=== PATIENT | female | born 1985 | race Caucasian/White ===

== ENCOUNTER 2023-04-09 08:43 | Outpatient (REF) | payer OTHER, SELFPAY ==
[2023-04-09 11:22] LABS: MANUAL DIFF FLAG NO
[2023-04-09 11:36] LABS: Basophils Percent Auto 0.5 % (0-2); Eosinophils Absolute Auto 0.1 X10*3/uL (0.0-0.4); Eosinophils Percent Auto 2.3 % (0-4); Hematocrit 39.7 % (37.0-47.0); Hemoglobin 12.5 g/dl (12.0-16.0); Imm Gran Abs Auto 0.07 X10*3/uL (0.00-0.03); Imm Gran Pct Auto 1.2 % (0.0-0.4); Lymphocytes Absolute Auto 2.1 X10*3/uL (1.2-4.9); Mean Corpuscular HGB Conc 31.5 g/dl (31.0-35.0); Mean Corpuscular Hemoglobin 28.4 pg (27.0-33.0); Mean Corpuscular Volume 90.2 fL (80.0-98.0); Mean Platelet Volume 10.9 fL (9.4-12.3); Monocytes Absolute Auto 0.4 X10*3/uL (0.1-1.2); Monocytes Percent Auto 6.5 % (2-11); Neutrophils Absolute Auto 3.3 x10*3/uL (2.0-8.3); Neutrophils Percent Auto 54.5 % (45-73); Platelet Count 277 X10*3/uL (160-400); Red Cell Distribution Width 14.3 % (11.0-16.0)
[2023-04-09 12:02] LABS: Alanine Aminotransferase 35 U/L (0-31); Albumin Level 3.8 g/dL (3.5-5.0); Alkaline Phosphatase 55 U/L (39-117); Anion Gap 10 (12-20); Aspartate Amino Transferase 25 U/L (5-31); Bilirubin Total 0.4 mg/dL (0.0-1.0); Blood Urea Nitrogen 12 mg/dL (9-16); Calcium 8.6 mg/dL (8.4-10.2); Carbon Dioxide 26 mmol/L (22-29); Chloride 108 mmol/L (96-108); Cholesterol 194 mg/dL; Estimated Glomerular Filt Rate > 60; Glucose Random 90 mg/dL (60-115); HDL Cholesterol 42 mg/dL; LDL Cholesterol Calculated 126 mg/dl; Potassium 4.1 mmol/L (3.3-5.1); Sodium 140 mmol/L (135-145); Total Protein 6.5 g/dL (6.5-8.0); Triglycerides 130 mg/dL
[2023-04-09 12:25] LABS: TSH reflex Free T4 1.03 uIU/mL (0.32-4.0); Vitamin D 25-OH Total 16.3 ng/mL (>30)
== END 2023-04-09 08:44 | disposition home or self-care (01) ==
LOC: HO.HMGCLDS 08:43
PROVIDERS: PCP Nurse Practitioner Family; Visit Provider Nurse Practitioner Family
DX: Z13.0 Encounter for screening for diseases of the blood and blood-forming organs and certain disorders involving the immune mechanism (principal); Z13.220 Encounter for screening for lipoid disorders; Z13.29 Encounter for screening for other suspected endocrine disorder; Z13.21 Encounter for screening for nutritional disorder; I10 Essential (primary) hypertension
CPT/HCPCS: 36415; 80053; 80061; 82306; 84443; 85025

== ENCOUNTER 2024-07-01 13:56 | Outpatient (AMB) | payer OTHER, SELFPAY ==
--- NOTE | 2024-07-01 13:56 | MHC.PC.OV ---
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 Allergies No Known Allergies Allergy (Verified 07/01/24 14:36) Medication List - Last Reconciled 07/01/24 by Sesar Noble MD ibuprofen 800 mg PO TID PRN lisinopril 5 mg PO DAILY norgestimate-ethinyl estradiol 0.18/0.215/0.25 mg-35 mcg (28) (Tri-Estarylla) 1 tab PO DAILY Tobacco use date assessed: 07/01/24 Dental Screening Dental Screen Date: 07/01/24 Did you have a dental visit in the last 12 months?: No Did you have a dental problem in the last 6 months where you did not have access to dental care?: No HPI PE/re-establish care from Angela HPI Details 38-year-old female presents to the office to discuss her medical conditions. I will be assuming her care as her primary care provider has left the practice. Patient is reporting, that she has noticed a lump in the right lower side of the abdomen. She noticed the swelling 1 month ago. Patient had a severe bout of respiratory infection, with heavy coughing and noticed the swelling after. No pain or fever. No weight loss. No nausea or vomiting. Patient has irregular and heavy menstrual cycles. [facility] Medical History (Updated 05/13/23 @ 10:16 by JUDITH Covington) Contact dermatitis Hypertension Surgical History Hx of appendectomy Hx of cholecystectomy Previous section Family History Mother Breast cancer Hypertension Sister Type 2 diabetes mellitus Father Myocardial infarction Brother Myocardial infarction, Onset Age: 40 Social History (Updated 03/20/23 @ 09:15 by JUDITH Covington) Household Members: Family Housing: Apartment Alcohol intake: current Alcohol intake frequency: holidays/special occasions only Patient Tobacco Use Status: Former Tobacco user Tobacco use type: Cigarette Cigarettes Per Day: 2 e-Cigarette/Vaping Use: Never Used Substance Use Type: Marijuana service: No Current occupational status: employed Cognitive needs: No Hearing needs: No Vision needs: No Female Reproductive History Menstrual Age of Menarche: 15 Questionnaire PHQ-9 Over the last 2 weeks, how often have you been bothered by any of the following problems? 1. Little interest or pleasure in doing things: more than half the days 2. Feeling down, depressed, or hopeless: more than half the days 3. Trouble falling or staying asleep, or sleeping too much: not at all 4. Feeling tired or having little energy: not at all 5. Poor appetite or overeating: not at all 6. Feeling bad about yourself - or that you are a failure or have let yourself or your family down: not at all 7. Trouble concentrating on things, such as reading the newspaper or watching television: not at all 8. Moving or speaking so slowly that other people could have noticed. Or the opposite - being so fidgety or restless that you have been moving around a lot more than usual: not at all 9. Thoughts that you would be better off or of hurting yourself in some way: not at all Total score: 4 Depression Screening Interpretation: Negative Depression Screening Done: Yes 31185 - PHQ-9 Billing: Yes Source: Developed by Drs. Murphy Hall, Yolanda Dickinson, Duy Carlton and colleagues, with an educational aaliyah from [employer]. Thrive Questionnaire Date Thrive assessed: 07/01/24 I am a: Patient What is your living situation today?: I have a steady place to live Within the past 12 months, did the food you bought not last and you didn't have the money to get more?: Never true Within the past 12 months, did you worry whether your food would run out before you got money to buy more?: Never true Do you have trouble paying for medicines?: No Do you have trouble getting transportation to medical appointments?: No Do you have trouble paying your heating and electricity bill?: No Do you have trouble taking care of your child, family member or friend?: No Do you have trouble with day-to-day activities such as bathing, preparing meals, shopping, managing finances, etc.?: No Are you currently unemployed and looking for a job?: No Are you interested in more education?: No Please select the resources that you would like help with: None Currently or been in a relationship where the following occur: No concerns reported THRIVE Score: 0 AUDIT C Alcohol Use Questionnaire (AUDIT-C) 1. How often do you have a drink containing alcohol?: Never 3. How often do you have six or more drinks on one occasion?: Never Total Score: 0 LEVI-7 AMB Questionnaire LEVI-7 Date LEVI - 7 assessed: 07/01/24 Feeling nervous, anxious, or on edge: 0 = Not at all Not being able to stop or control worryin = More than half the days Worrying too much about different things: 0 = Not at all Trouble relaxin = Not at all Being so restless that it is hard to sit still: 0 = Not at all Becoming easily annoyed or irritable: 0 = Not at all Feeling afraid as if something awful might happen: 0 = Not at all Total LEVI-7 score (0-4 normal; 5-9 mild; 10-14 moderate; 15-21 severe): 2 Source: Developed by Drs. Murphy Hall, Yolanda Dickinson, Duy Carlton and colleagues, with an educational aaliyah from [employer]. LEVI-7 Assessment Billing LEVI-7 Assessment Tool: LEVI-7 Assessment 18065 Physical exam (Primary Care) Vital Signs: Last Vital Signs Pulse 58 07/01/24 13:57 BP 138/64 07/01/24 13:57 Pulse Ox 99 07/01/24 13:57 Oxygen Delivery Method Room Air 07/01/24 13:57 Care Plan Goal for BP management: Blood pressure is well controlled. Continue medications at same dosage. BMI result Body Mass Index 46.8 BMI Assessment/Plan discussion: High (1 lb per week weight loss suggested.) BMI High, discussed plan: lifestyle, weight reduction and dietary Tobacco/Smoking Status: Tobacco use Status Tobacco use date assessed 07/01/24 07/01/24 13:58 Patient Tobacco Use Status Former Tobacco user 07/01/24 13:58 Tobacco use type Cigarette 07/01/24 13:58 e-Cigarette/Vaping Use Never Used 07/01/24 13:58 PHQ-9: PHQ-9 Score PHQ-9: Total score 4 07/01/24 14:05 Depression Screening Interpretation: Negative Thrive Assessment: Date of Thrive Assessment Date Thrive assessed 07/01/24 07/01/24 13:59 Currently or been in a relationship where the following occur: No concerns reported Const General: cooperative and healthy appearing Nutritional Appearance: well nourished Orientation/consciousness: patient oriented x3 Limitations: no limitations HENMT Head: Yes normal to inspection Eyes General: appearance normal, both eyes and all related structures Neck Neck: Yes normal visual inspection Chest Chest palpation & inspection: normal palpation of entire chest wall Resp Effort & Inspection: normal respiratory effort GI Other: Abdomen: Small lump palpable in the right lower quadrant. Cough impulse is present. Neuro General: patient oriented x3 Assessment and Plan Assessment & Plan (1) Lump in the abdomen: Code(s): R19.00 - Intra-abdominal and pelvic swelling, mass and lump, unspecified site Plan: Most likely is reproducible hernia. An abdominal ultrasound and a pelvic ultrasound has been requested. Fibroid uterus has to be ruled out. Will call with the results of the ultrasound after they are done. (2) Hypertension: Code(s): I10 - Essential (primary) hypertension Plan: Blood pressure is in range. Continue medications at same dosage. Blood work has been ordered. Will call with the results. Orders: Orders US pelvic and transvaginal Today R19.00 - Intra-abdominal and pelvic swelling, mass and lump, unspecified site Complete Blood Count no Diff Today I10 - Essential (primary) hypertension UA and rflx microscopic Today I10 - Essential (primary) hypertension US abdomen complete Today R19.00 - Intra-abdominal and pelvic swelling, mass and lump, unspecified site, R74.8 - Abnormal levels of other serum enzymes Basic Metabolic Panel Today I10 - Essential (primary) hypertension Lipid Panel Today I10 - Essential (primary) hypertension Liver Panel Today I10 - Essential (primary) hypertension Thyroid Stimulating Hormone Today I10 - Essential (primary) hypertension Coding Level of Care Code Est Pt Level 4 (67684) Complex EM visit Add On G2211 Diagnoses Lump in the abdomen R19.00 Hypertension I10 Additional Codes LEVI-7 Assessment Billing - LEVI-7 Assessment Tool: LEVI-7 Assessment 12325 ([id number])
[2024-07-01 13:57] VITALS: BP 138/64; PULSE 58; O2SAT 99; BMI 46.8
== END 2024-07-01 14:26 | disposition home or self-care (01) ==
PROVIDERS: PCP Nurse Practitioner Family; Visit Provider Internal Medicine
DX: R19.00 Intra-abdominal and pelvic swelling, mass and lump, unspecified site (principal); I10 Essential (primary) hypertension
CPT/HCPCS: 99214; G2211

== ENCOUNTER 2024-07-14 08:15 | Outpatient (REF) | payer OTHER, SELFPAY ==
[2024-07-14 10:38] LABS: Hematocrit 38.7 % (37.0-47.0); Hemoglobin 12.5 g/dl (12.0-16.0); Mean Corpuscular HGB Conc 32.3 g/dl (31.0-35.0); Mean Corpuscular Hemoglobin 29.2 pg (27.0-33.0); Mean Corpuscular Volume 90.4 fL (80.0-98.0); Mean Platelet Volume 10.7 fL (9.4-12.3); Platelet Count 256 X10*3/uL (160-400); Red Blood Count 4.28 X10*6/uL (4.20-5.50); White Blood Count 5.4 X10*3/uL (4.8-10.8)
[2024-07-14 10:47] LABS: Appearance Urine Turbid; Color Urine Yellow; Glucose Urine UA Negative (Negative); Leukocyte Esterase Urine Negative (Negative); Nitrite Urine Negative (Negative); PH 5.5 (5.0-9.0); Urine Blood Negative (Negative); Urine Ketones Negative (Negative); Urine Protein Negative (Neg-Trace)
[2024-07-14 10:59] LABS: Alanine Aminotransferase 15 U/L (0-31); Albumin Level 3.7 g/dL (3.5-5.0); Alkaline Phosphatase 45 U/L (39-117); Anion Gap 11 (12-20); Aspartate Amino Transferase 14 U/L (5-31); Bilirubin Direct < 0.2 mg/dL (0.0-0.5); Bilirubin Total 0.2 mg/dL (0.0-1.0); Blood Urea Nitrogen 12 mg/dL (9-16); Calcium 8.6 mg/dL (8.4-10.2); Carbon Dioxide 21 mmol/L (22-29); Chloride 109 mmol/L (96-108); Cholesterol 162 mg/dL (<200); Estimated Glomerular Filt Rate > 60; Glucose Random 108 mg/dL (60-115); HDL Cholesterol 51 mg/dL (>40); LDL Cholesterol Calculated 95 mg/dL (<100); Potassium 4.3 mmol/L (3.3-5.1); Sodium 137 mmol/L (135-145); Total Protein 6.7 g/dL (6.5-8.0); Triglycerides 83 mg/dL (<150)
[2024-07-14 11:06] LABS: Thyroid Stimulating Hormone 0.92 uIU/mL (0.32-4.0)
== END 2024-07-14 08:16 | disposition home or self-care (01) ==
LOC: HO.HMGCLDS 08:15
PROVIDERS: PCP Internal Medicine; Visit Provider Internal Medicine
DX: I10 Essential (primary) hypertension (principal)
CPT/HCPCS: 36415; 80048; 80061; 80076; 81003; 84443; 85027

== ENCOUNTER 2024-07-27 09:54 | Outpatient (REF) | payer OTHER, SELFPAY ==
--- NOTE | ~2024-07-27 | US_ITS ---
EXAMINATION: US ABDOMEN COMPLETE CLINICAL INFORMATION: Abnormal levels of other serum enzymes. COMPARISON: None available. TECHNIQUE: Real-time imaging of the abdominal viscera. FINDINGS: PANCREAS: Normal. ABDOMINAL AORTA: The proximal, mid, and distal segments are normal in caliber. INFERIOR VENA CAVA: Visualized portions are normal. LIVER: The liver is normal in size. The liver contour is normal. Increased hepatic echogenicity suggesting hepatic steatosis. No focal hepatic lesion. There is no intrahepatic biliary duct dilatation seen. GALLBLADDER: Surgically absent. COMMON BILE DUCT: Normal in caliber measuring 0.37 cm in diameter. RIGHT KIDNEY: Normal. No hydronephrosis. No renal calculi or focal parenchymal lesions. The kidney measures 11.2 cm in maximum dimension. LEFT KIDNEY: Multiple left renal calculi are noted the largest measuring up to 5 mm in the lower pole. No hydronephrosis or focal parenchymal lesions. The kidney measures 12.0 cm in maximum dimension. SPLEEN: Enlarged. The spleen measures 13.9 cm in maximum dimension. FREE FLUID: None. ADDITIONAL FINDINGS: Within the right lower quadrant subcutaneous tissue in the area indicated by the patient is a complex mostly hypoechoic focus nonvascular with irregular margins measuring 1.6 x 0.9 x 1.1 cm, nonspecific. US/US abdomen complete IMPRESSION: 1. Increased hepatic echogenicity suggesting hepatic steatosis. 2. Status post cholecystectomy. 3. Multiple left-sided renal calculi the largest measuring up to 5 mm in the lower pole without hydronephrosis. 4. Within the right lower quadrant subcutaneous tissue in the area indicated by the patient is a complex mostly hypoechoic focus nonvascular with irregular margins measuring 1.6 x 0.9 x 1.1 cm, nonspecific. Electronically signed by: Nicolette Rojo MD 07/31/2024 10:31 AM EDT
--- NOTE | ~2024-07-27 | US_ITS ---
EXAMINATION: US PELVIS CLINICAL INFORMATION: Pelvic swelling, irregular menses, question fibroids, last menstrual period 07/17/2024, right lower quadrant pain. COMPARISON: None available. TECHNIQUE: Ultrasound of the pelvis is performed using both transabdominal and transvaginal transducers along with Doppler. Transvaginal imaging is performed due to inadequate visualization transabdominally. FINDINGS: The uterus is anteverted and measures 10.3 x 5.7 x 5.6 cm. Nabothian cysts. Endometrial thickness is 7 mm. Left ovary measures 3.2 x 2.9 x 2.7 cm, volume 13.2 mL. No significant free fluid. Right ovary measures 2.4 x 3.8 x 2.8 cm, volume 13.5 mL. Exophytic right ovarian cyst measures 1.0 cm and appears simple. US/US pelvic and transvaginal IMPRESSION: Right ovarian 1.0 cm simple cyst is likely physiologic; however, correlation with clinical exam recommended to determine further management including possible follow-up imaging for this patient with right lower quadrant pain, pelvic swelling and irregular menses. Electronically signed by: Simona Quiroz MD 08/04/2024 10:30 AM EDT
== END 2024-07-27 09:55 | disposition home or self-care (01) ==
LOC: HO.HMGCX 09:54
PROVIDERS: PCP Internal Medicine; Visit Provider Internal Medicine
DX: R19.00 Intra-abdominal and pelvic swelling, mass and lump, unspecified site (principal); R74.8 Abnormal levels of other serum enzymes
CPT/HCPCS: 76700; 76830; 76856

== ENCOUNTER 2025-01-20 11:08 | Outpatient (AMB) | payer OTHER, SELFPAY ==
--- NOTE | 2025-01-20 11:37 | A.OFFPC_ITS ---
Vital Signs 01/20/25 11:39 Height 5 ft 2 in Weight 256 lb 8 oz BMI 46.9 BP 140/82 H Blood Pressure Location Lt brachial Position Sitting Pulse 58 Pulse Source Pulse Oximeter Temp 97.3 F Temp Source Temporal Artery Scan Pulse Oximetry (%) 98 Oxygen Delivery Method Room Air Intake Visit Reasons: 6 month f/u Intake Note: Patient is here to follow up on pain in right leg Lubricating Specialist Required: No Diesel Stationary Engineer: Not Required per policy Accompanied by: Self / Same As Patient Allergies No Known Allergies Allergy (Verified 01/20/25 12:12) Medication List - Last Reconciled 01/20/25 by Yaneli Gutierrez PA-C ibuprofen 800 mg PO TID PRN lisinopril 20 mg PO DAILY norgestimate-ethinyl estradiol 0.18/0.215/0.25 mg-35 mcg (28) (Tri-Estarylla) 1 tab PO DAILY Tobacco use date assessed: 01/20/25 Dental Screening Dental Screen Date: 01/20/25 Did you have a dental visit in the last 12 months?: No Did you have a dental problem in the last 6 months where you did not have access to dental care?: No Was dental information given to patient?: No [facility] Medical History (Updated 01/20/25 @ 12:15 by Yaneli Gutierrez PA-C) Follow-up exam, 3-6 months since previous exam Morbid obesity with BMI of 45.0-49.9, adult Lower abdominal pain Contact dermatitis Hypertension Surgical History Previous section Hx of cholecystectomy Hx of appendectomy Family History Mother Breast cancer Hypertension Sister Type 2 diabetes mellitus Father Myocardial infarction Brother Myocardial infarction, Onset Age: 40 Social History Household Members: Family Housing: Apartment Alcohol intake: current Alcohol intake frequency: holidays/special occasions only Patient Tobacco Use Status: Former Tobacco user Tobacco use type: Cigarette Cigarettes Per Day: 2 e-Cigarette/Vaping Use: Never Used Second Hand Smoke Exposure: Yes Substance Use Type: Marijuana service: No Current occupational status: employed Cognitive needs: No Hearing needs: No Vision needs: Yes (Glasses) Female Reproductive History Menstrual Age of Menarche: 15 Questionnaire PHQ-9 Over the last 2 weeks, how often have you been bothered by any of the following problems? 1. Little interest or pleasure in doing things: not at all 2. Feeling down, depressed, or hopeless: not at all 3. Trouble falling or staying asleep, or sleeping too much: not at all 4. Feeling tired or having little energy: not at all 5. Poor appetite or overeating: not at all 6. Feeling bad about yourself - or that you are a failure or have let yourself or your family down: not at all 7. Trouble concentrating on things, such as reading the newspaper or watching television: not at all 8. Moving or speaking so slowly that other people could have noticed. Or the opposite - being so fidgety or restless that you have been moving around a lot more than usual: not at all 9. Thoughts that you would be better off or of hurting yourself in some way: not at all Total score: 0 Depression Screening Interpretation: Negative Depression Screening Done: Yes 58450 - PHQ-9 Billing: Yes Source: Developed by Drs. Murphy Hall, Yolanda Dickinson, Duy Carlton and colleagues, with an educational aaliyah from [employer]. Thrive Questionnaire Date Thrive assessed: 01/20/25 I am a: Patient What is your living situation today?: I have a steady place to live Within the past 12 months, did the food you bought not last and you didn't have the money to get more?: Never true Within the past 12 months, did you worry whether your food would run out before you got money to buy more?: Never true Do you have trouble paying for medicines?: No Do you have trouble getting transportation to medical appointments?: No Do you have trouble paying your heating and electricity bill?: No Do you have trouble taking care of your child, family member or friend?: No Do you have trouble with day-to-day activities such as bathing, preparing meals, shopping, managing finances, etc.?: No Are you currently unemployed and looking for a job?: No Are you interested in more education?: No Please select the resources that you would like help with: None Currently or been in a relationship where the following occur: No concerns reported THRIVE Score: 0 AUDIT C Alcohol Use Questionnaire (AUDIT-C) 2. How many drinks containing alcohol do you have on a typical day when you are drinking?: 1 or 2 3. How often do you have six or more drinks on one occasion?: Never Total Score: 0 Score Reviewed/Action Taken: Yes LEVI-7 AMB Questionnaire LEVI-7 Date LEVI - 7 assessed: 01/20/25 Feeling nervous, anxious, or on edge: 0 = Not at all Not being able to stop or control worryin = Not at all Worrying too much about different things: 0 = Not at all Trouble relaxin = Not at all Being so restless that it is hard to sit still: 0 = Not at all Becoming easily annoyed or irritable: 0 = Not at all Feeling afraid as if something awful might happen: 0 = Not at all Total LEVI-7 score (0-4 normal; 5-9 mild; 10-14 moderate; 15-21 severe): 0 Source: Developed by Drs. Murphy Hall, Yolanda Dickinson, Duy Carlton and colleagues, with an educational aaliyah from [employer]. LEVI-7 Assessment Billing LEVI-7 Assessment Tool: LEVI-7 Assessment 41112 Physical exam (Primary Care) Vital Signs: Last Vital Signs Temp 97.3 F 01/20/25 11:39 Pulse 58 01/20/25 11:39 BP 140/82 H 01/20/25 11:39 Pulse Ox 98 01/20/25 11:39 Oxygen Delivery Method Room Air 01/20/25 11:39 Care Plan Goal for BP management: 130/80 will increase the patient's lisinopril by 10 mg to 20 mg daily. Patient will check her blood pressure daily for the next 2 weeks and return in 2 weeks for blood pressure check. BMI result Body Mass Index 46.9 BMI Assessment/Plan discussion: High BMI High, discussed plan: lifestyle, weight reduction, dietary, physical activity and alcohol moderation Tobacco/Smoking Status: Tobacco use Status Tobacco use date assessed 01/20/25 01/20/25 11:43 Patient Tobacco Use Status Former Tobacco user 01/20/25 11:43 Tobacco use type Cigarette 01/20/25 11:43 e-Cigarette/Vaping Use Never Used 01/20/25 11:43 PHQ-9: PHQ-9 Score PHQ-9: Total score 0 01/20/25 11:43 Depression Screening Interpretation: Negative Thrive Assessment: Date of Thrive Assessment Date Thrive assessed 01/20/25 01/20/25 11:43 Currently or been in a relationship where the following occur: No concerns reported Coding Level of Care Code Est Pt Level 4 (18474) Complex EM visit Add On G2211 Diagnoses Lower abdominal pain R10.30 Hypertension I10 Morbid obesity with BMI of 45.0-49.9, adult E66.01; Z68.42 Follow-up exam, 3-6 months since previous exam Z09 Additional Codes PHQ-9 - 12810 - PHQ-9 Billing: Yes ([id number]) LEVI-7 Assessment Billing - LEVI-7 Assessment Tool: LEVI-7 Assessment 66419 ([id number]) Assessment & Plan Assessment & Plan (1) Lower abdominal pain: Code(s): R10.30 - Lower abdominal pain, unspecified Category: Medical Plan: Lower abdominal pain over the past month. Patient does not have an appendix or gallbladder. Was seen by business intelligence etl developer and they do not feel like it is ovary or uterus related. Will order outpatient labs, CT scan abdomen pelvis with IV contrast. Will continue to monitor. (2) Hypertension: Code(s): I10 - Essential (primary) hypertension Category: Medical Plan: Blood pressure 140/82. We would like her blood pressure to be under 130/80. Will increase her lisinopril from 10 mg to 20 mg daily. Patient will return in 2 weeks with blood pressure diary for blood pressure check. (3) Morbid obesity with BMI of 45.0-49.9, adult: Code(s): E66.01 - Morbid (severe) obesity due to excess calories; Z68.42 - Body mass index [BMI] 45.0-49.9, adult Category: Medical Plan: Patient will improve her diet and exercise. Condition is chronic and stable continue to monitor. (4) Follow-up exam, 3-6 months since previous exam: Code(s): Z09 - Encounter for follow-up examination after completed treatment for conditions other than malignant neoplasm Category: Medical Plan: see below Plan Plan - Increase lisinopril dosage to further manage hypertension. The patient is instructed to monitor blood pressure at home daily for two weeks. - A CT scan of the abdomen and pelvis with contrast is ordered to further investigate abdominal pain. - Encouraged to undertake blood work before the CT scan and report any emergent abnormalities. - Consideration for possible inguinal hernia in the differential diagnosis given abdominal pain presentation. - Ensure follow-up till better management is achieved and re-evaluate pain symptoms related to the right leg and abdomen. Orders: Orders Comprehensive [place]. Panel Fast Today Z00.00 - Encounter for general adult medical examination without abnormal findings Lipid Panel Today Z00.00 - Encounter for general adult medical examination without abnormal findings Liver Panel Today Z00.00 - Encounter for general adult medical examination without abnormal findings Magnesium Today Z00.00 - Encounter for general adult medical examination without abnormal findings Complete Blood Count Auto Diff Today Z00.00 - Encounter for general adult medical examination without abnormal findings C Reactive Protein Today Z00.00 - Encounter for general adult medical examination without abnormal findings Hemoglobin A1c Today Z00.00 - Encounter for general adult medical examination without abnormal findings TSH reflex Free T4 Today Z00.00 - Encounter for general adult medical examination without abnormal findings Vitamin B1 Today Z00.00 - Encounter for general adult medical examination without abnormal findings Vitamin B12 and Folate Today Z00.00 - Encounter for general adult medical examination without abnormal findings Vitamin D 25-OH Total Today Z00.00 - Encounter for general adult medical examination without abnormal findings CT abdomen pelvis w IV con Today R10.30 - Lower abdominal pain, unspecified HCG Quantitative Today R10.30 - Lower abdominal pain, unspecified UA CC w/rflx Micro + Cult Today R10.30 - Lower abdominal pain, unspecified Medications: Changed From lisinopril 10 mg PO DAILY To lisinopril 10 mg PO DAILY 90 tabs 1RF Patient Instructions: Patient Instructions - Increase lisinopril to current dosage to two tablets daily. - Monitor blood pressure daily for two weeks and log readings. - Obtain blood work before the CT scan. - Attend CT abdomen and pelvis with contrast as scheduled. - Report any dizziness or adverse reactions promptly. - Return for follow-up in two weeks or sooner if symptoms worsen. - Continue regular activities and be mindful of any developments in symptoms. - Purchase and use a home blood pressure cuff for daily measurements. Scribe Plan - Not visible on output: History of Present Illness The patient is a 39-year-old female presenting for a six-month follow-up to discuss her chronic medical condition patient has a history of essential hypertension, which has been treated with lisinopril. Her blood pressure today is noted at 140/82 mmHg. The patient acknowledges irregular home monitoring of blood pressure. She is also on estradiol for control and ibuprofen as needed. Her hypertension control has been marginal, with past readings occasionally exceeding preferred values recommended for optimal control. Additionally, the patient reports persistent pain localized to her right leg, which originally prompted a medical visit. She describes it starting in the upper leg and associated aching sensations in the arms when sitting upright. The pain reportedly has no known trigger and persists despite prior evaluations. The patient also experienced abdominal discomfort characterized by a pressure feeling predominantly in the lower abdomen and right suprapubic area. There is a reported history of kidney stones, which remain unresolved according to the patient. There were concerns about possible hernia based on prior discussions. She has undergone surgical removal of both the appendix and gallbladder. Social History - The patient is employed and reports no issues related to her functional status at work. - She lives with her and two children, aged three and eight. - She reports no difficulty with daily activities such as driving, and managing household tasks. - The patient's family planning is complete, and her partner has undergone sterilization. Review of Systems - Musculoskeletal: Reports persistent leg pain. - Gastrointestinal: Reports abdominal pressure. - Genitourinary: Denies any significant genitourinary symptoms except for history of menstrual irregularities. Physical Exam Appearance: Alert. Oriented X3. No acute distress. Head: Normal external exam. Normocephalic. Atraumatic. Eyes: Pupils are equal, round, and reactive to light. Extraocular movements intact. Conjunctiva and sclera normal. Eyelids normal. Ears: External auditory canal normal. Tympanic membranes normal. Throat: Pharynx normal. Uvula midline. Moist mucous membranes. Neck: Normal inspection. Neck supple. Full range of motion. No adenopathy. Thyroid Normal. No meningeal signs. No neck mass noted. Cardiovascular: Normal heart rate and rhythm. Heart sound normal. No murmurs no blanco. Pulses normal throughout. Respiratory: No respiratory distress. Painless inspiration. Breath sounds normal. No wheezes/rales/rhonchi noted. Chest nontender. No accessory muscle usage noted or decreased air movement noted. Abdomen: Soft and mild tenderness to the suprapubic/right lower abdomen. There is no rebound tenderness noted. Bowel sounds normal in all 4 quadrants. No distention noted. No organomegaly noted. No visible injury noted. Back: No costovertebral angle tenderness. Full range of motion noted. Skin: Skin warm and dry. Normal skin color. Normal skin turgor. No rashes/lesion s/lacerations noted. Extremities: No lower extremity edema. Extremities exhibit normal range of motion. Right leg pain reported. Extremities nontender. Neuro: Oriented X 3. No motor deficit. No sensory deficit. Reflexes normal. Results - Labs: CBC, CMP, Lipid Panel, Thyroid Function, Vitamin B1, B12, D to be done. - Tests and Diagnostics: None completed today. A follow-up with a CT abdomen and pelvis scheduled. Plan - Increase lisinopril dosage to further manage hypertension. The patient is instructed to monitor blood pressure at home daily for two weeks. - A CT scan of the abdomen and pelvis with contrast is ordered to further investigate abdominal pain. - Encouraged to undertake blood work before the CT scan and report any emergent abnormalities. - Consideration for possible inguinal hernia in the differential diagnosis given abdominal pain presentation. - Ensure follow-up till better management is achieved and re-evaluate pain symptoms related to the right leg and abdomen. Patient was informed and verbally consented to the use of an ambient scribe for clinic note documentation during this visit. Discussion Notes During today's encounter, we discussed increasing lisinopril to better manage her blood pressure, which consistently trends above the desired range. The patient agreed to begin twice daily dosing from her existing medication supply and to refill the medication. We reviewed the importance of regularly monitoring her blood pressure at home. Regarding her abdominal pain, I recommended a CT scan with contrast, as the pain's characteristics were not typical of kidney stone pain. We also discussed the possibility of an inguinal hernia as a differential, warranting a CT evaluation. I explained the need for updated blood work to check her kidney function prior to the imaging study. The patient expressed understanding of, and consented to, all proposed management plans, and agreed to follow up in two weeks to reassess her hypertension and review the CT results. Patient Instructions - Increase lisinopril to current dosage to two tablets daily. - Monitor blood pressure daily for two weeks and log readings. - Obtain blood work before the CT scan. - Attend CT abdomen and pelvis with contrast as scheduled. - Report any dizziness or adverse reactions promptly. - Return for follow-up in two weeks or sooner if symptoms worsen. - Continue regular activities and be mindful of any developments in symptoms. - Purchase and use a home blood pressure cuff for daily measurements.
[2025-01-20 11:39] VITALS: BP 140/82; PULSE 58; TEMP 36.3; O2SAT 98; BMI 46.9
--- OUTSIDE RECORDS SUMMARY | 2025-01-20 12:29 | XMS_ITS | Clinical Summary ---
Author Organization [facility] Address [address] [place] [address] Phone Care Team Providers Care Product Evangelist Name Role Phone Sheela Palacio MD Primary Care Provider [phone] Allergies No known active allergies Medications lisinopriL (PRINIVIL,ZESTRI L) 5 mg tablet Take 1 tablet (5 mg total) by mouth 1 (one) time each day. Active norgestimate-eth inyl estradioL (Tri-Estarylla) 0.18/0.215/0.25 mg-35 mcg (28) per tablet Take 1 tablet by mouth 1 (one) time each day. 02/22/2013 Active Active Problems No known active problems Encounters Date Type Department Care Team Description 11/02/2024 2:53 PM EST Anesthesia Event [facility] OR [address] [place] [phone] Cristo De La Torre MD Walsh, Michael, DO 11/02/2024 2:15 PM EST - 11/02/2024 3:30 PM EST Surgery [facility] OR [address] [place] [phone] Denny Soni MD FRACTIONAL D&C, HYSTEROSCOPY, ?MYOSURE ENDOMETRIAL POLYP REMOVAL [45580 (CPT??)] 11/02/2024 12:53 PM EST - 11/02/2024 5:20 PM EST Hospital Encounter [facility] OR [address] [place] [phone] Denny Soni MD Abnormal uterine and vaginal bleeding, unspecified; Polyp of corpus uteri Discharge Disposition: Home or Self Care from Last 3 Months Surgical History Surgery Date Site/Laterality Comments APPENDECTOMY Right CHOLECYSTECTOMY SECTION x 2 Medical History Medical History Date Comments Hypertension Chronic kidney disease kidney [facility] Family History Medical History Relation Name Comments Heart attack Father Hypertension Father Hypertension Mother Relation Name Status Comments Father Mother Social History Tobacco Use Types Packs/Day Years Used Date Smoking Tobacco: Former Cigarettes Q uit: 10/31/2012 Passive Smoke Exposure: Past Smokeless Tobacco: Never Tobacco Cessation:Counseling Given: Not Answered Alcohol Use Standard Drinks/Week Comments Yes 0 (1 standard drink = 0.6 oz pur e alcohol) rare Comments Unknown Sex and Gender Information Value Date Recorded Sex Assigned at Female 10/24/2024 8:08 PM EST Legal Sex Female 6:51 AM EST Gender Identity Female 10/24/2024 8:08 PM EST Sexual Orientation Straight 11/02/2024 12 :51 PM EST Obstetrics History Last Filed Vital Signs Vital Sign Reading Time Taken Comments Blood Pressure 133/60 11/02/2024 4:43 PM EST Pulse 62 11/02/2024 4:43 PM EST Temperature 36.8 ??C (98.2 ??F) 11/02/2024 1:13 PM ES T Respiratory Rate 14 11/02/2024 4:30 PM EST Oxygen Saturation 98% 11/02/2024 4:43 PM EST Inhaled Oxygen Concentration - - Weight 110 kg (243 lb) 10/25/2024 12:00 PM EST Height 157.5 cm (5' 2 ) 10/25/2024 12:00 PM EST Body Mass Index 44.45 10/25/2024 12:00 PM EST Plan of Treatment Health Maintenance Due Date Last Done Comments Hepatitis B Vaccines (1 of 3 - 19+ 3-dose series) 2005 Cervical Cancer Screening: P ap Smear 2007 DTaP,Tdap,and Td Vaccines (2 - Td or Tdap) 04/09/2022 04/09/2012 COVID-19 Vaccine (3 - Modern a risk series) 04/18/2022 03/21/2022, 02/21/2022 Cholesterol Screening (Lipid Panel) 11/03/2022 Depression Screening 11/03/2022 HIV Screening 11/03/2022 Hepatitis C Screening 11/03/2022 Social Influencers of Health Screening 11/03/2022 Influenza Vaccine (#1) 2024 Hypertension/CHF/CAD Annual BMP Blood Test 10/07/2024 HIB Vaccines Aged Out No longer eligi ble based on patient's age to complete this topic HPV Vaccines Aged Out No longer eligi ble based on patient's age to complete this topic Hepatitis A Vaccines Aged Out No long er eligible based on patient's age to complete this topic IPV Vaccines Aged Out No longer eligi ble based on patient's age to complete this topic MMR Vaccines Aged Out No longer eligi ble based on patient's age to complete this topic Meningococcal ACWY Vaccine Aged Out N o longer eligible based on patient's age to complete this topic Meningococcal B Vacine Aged Out No lo nger eligible based on patient's age to complete this topic Pneumococcal Vaccine: Pediatrics (0 to 5 Years) and At-Risk Patients (6 to 64 Years) Aged Out No longer eligible b ased on patient's age to complete this topic RSV Immunization Patients Under 20 months Aged Out No longer eligible b ased on patient's age to complete this topic Varicella Vaccines Aged Out No longer eligible based on patient's age to complete this topic Procedures Procedure Name Priority Date/Time Associated Diagnosis Comments TISSUE EXAM Routine 11/02/2024 3:16 PM EST Abnormal uterine and vaginal bleeding, unspecified Polyp of corpus uteri TH AN ENDOTRACHEAL(NO CHARGE) Routine 11/02/2024 3:11 PM EST NE HYSTEROSCOPY W/BIOPSY ENDOMETRIUM AND/OR POLYPECTOMY W/O AND/OR W/D&C 11/02/2024 2:51 PM EST Abnormal uterine and vaginal bleeding, unspecified Case Notes MYOSURE Special Needs MYOSURE CBC WITH AUTO DIFFERENTIAL Routine 10/27/2024 11:55 AM EST Post-menopausal bleeding CBC AND DIFFERENTIAL Routine 10/27/2024 11:55 AM EST Post-menopausal bleeding TYPE AND SCREEN Routine 10/27/2024 11:55 AM EST Post-menopausal bleeding from Last 3 Months Results * Tissue exam (11/02/2024 3:16 PM EST) Final Diagnosis A. Endocervical curettings: Benign endocervical mucosa with mild chronic endocervicitis Benign lower uterine segment tissue B. Endometrial curettings: Secretory endometrium, polypoid - No unequivocal endometrial polyp identified - No endometrial hyperplasia or neoplasm identified Benign endocervix 11/04/2024 11:29 AM EST [facility] Gross Description A. Cervix, ecc: Labeled ECC . Received in formalin, on Telfa, is a 2.2 x 1.5 x 0.3 cm aggregate of blood-streaks mucoid material, which is wrapped in paper and submitted in toto in one cassette, multiple pieces, x2. B. Endometrium, emc: Labeled EMC . Received in formalin, on sheets of telfa, is a 3.2 x 2.5 x 0.6 cm aggregate of soft, fowler-red tissue fragments and blood-streaked mucoid material paper and submitted in toto in two cassette, multiple pieces each, x 2. TS 11/04/2024 11:29 AM EST [facility] Disclaimer Unless otherwise specified, all tissue is 10% NB formalin fixed and paraffin embedded. 11/04/2024 11:29 AM [facility] Tissue Cervix uteri structure / Unknown 11/02/2024 3:16 PM EST 11/03/2024 6:05 AM EST Tissue specimen (specimen) Endometrial structure / Unknown 11/02/2024 3:18 PM EST 11/03/2024 6:05 AM EST us Denny Soni MD LAB PATHOLOGY ORDERABLES Final Result [facility] [address] [place] [address], * TH AN ENDOTRACHEAL(NO CHARGE) (11/02/2024 3:11 PM EST) Yumiko Montenegro CRNA - 11/02/2024 3:11 PM EST Yumiko Arroyo CRNA ? 11/02/2024 ??3:13 PM General Information and Staff Patient location during procedure: OR Anesthesiologist: Cristo De La Torre MD Resident/WATERSHED MANAGER: Yumiko Arroyo CRNA Performed: resident/WATERSHED MANAGER/CAA Performed by: Yumiko Arroyo CRNA Authorized by: Cristo De La Torre MD ?? Intubation Airway not difficult Urgency: elective Final Airway Details Successful airway: ETT Cuffed: yes Successful intubation technique: video laryngoscopy Facilitating devices/methods: intubating stylet Endotracheal tube insertion site: oral Blade: Farnaz Blade size: #3 ETT size (mm): 7.0 Cormack-Lehane Classification: grade IIa - partial view of glottis Placement verified by: chest auscultation and capnometry Measured from: lips ETT to lips (cm): 21 Number of attempts at approach: 1 Number of other approaches attempted: 0Final airway type: endotracheal airway Indications and Patient Condition Indications for airway management: anesthesia Sedation level: Yes Preoxygenated: yes Soft Tissue Damage: No Dentition Unchanged: Yes Patient position: sniffing MILS maintained throughout Mask difficulty assessment: 2 - vent by mask + OA or adjuvant +/- NMBA Start Time: 11/02/2024 3:05 PMStop Time: 11/02/2024 3:05 PM us Cristo De La Torre MD ANESTHESIA ORDERABLES Final Re sult * CBC auto differential (10/27/2024 11:55 AM EST) WBC 7.1 4.8 - 10.8 K/mcL LAB HEMETOLOGY METHOD 10/27/2024 12:37 PM [facility] RBC 4.30 3.80 - 4.80 M/mcL LAB HEMETOLOGY METHOD 10/27/2024 12:37 PM [facility] Hemoglobin 12.6 11.5 - 16.0 g/dL LAB HEMETOLOGY METHOD 10/27/2024 12:37 PM [facility] Hematocrit 38.9 35.0 - 47.0 % LAB HEMETOLOGY METHOD 10/27/2024 12:37 PM [facility] MCV 91.1 79.0 - 98.0 FL LAB HEMETOLOGY METHOD 10/27/2024 12:37 PM [facility] MCH 29.5 27.0 - 32.0 pcg LAB HEMETOLOGY METHOD 10/27/2024 12:37 PM [facility] MCHC 32.4 32.0 - 37.0 g/dL LAB HEMETOLOGY METHOD 10/27/2024 12:37 PM [facility] RDW 13.3 11.0 - 15.0 % LAB HEMETOLOGY METHOD 10/27/2024 12:37 PM [facility] Platelets 284 130 - 400 K/mcL LAB HEMETOLOGY METHOD 10/27/2024 12:37 PM [facility] MPV 10.4 7.0 - 11.0 FL LAB HEMETOLOGY METHOD 10/27/2024 12:37 PM [facility] NRBC 0.0 <1.0 % LAB HEMETOLOGY METHOD 10/27/2024 12:37 PM [facility] NRBC Absolute 0.00 <0.10 K/mcL LAB HEMETOLOGY METHOD 10/27/2024 12:37 PM [facility] Neutrophils Relative 55.1 % LAB HEMETOLOGY METHOD 10/27/2024 12:37 PM [facility] Lymphocytes Relative 30.5 % LAB HEMETOLOGY METHOD 10/27/2024 12:37 PM [facility] Monocytes Relative 7.8 % LAB HEMETOLOGY METHOD 10/27/2024 12:37 PM [facility] Eosinophils Relative 5.9 % LAB HEMETOLOGY METHOD 10/27/2024 12:37 PM [facility] Basophils Relative 0.4 % LAB HEMETOLOGY METHOD 10/27/2024 12:37 PM EST [facility] Immature Granulocytes Relative 0.3 % LAB HEMETOLOGY METHOD 10/27/2024 12:37 PM [facility] Neutrophils Absolute 3.89 1.50 - 7.00 K/[facility] LAB HEMETOLOGY METHOD 10/27/2024 12:37 PM [facility] Lymphocytes Absolute 2.15 1.00 - 5.00 K/[facility] LAB HEMETOLOGY METHOD 10/27/2024 12:37 PM [facility] Monocytes Absolute 0.55 0.20 - 1.00 K/[facility] LAB HEMETOLOGY METHOD 10/27/2024 12:37 PM [facility] Eosinophils Absolute 0.42 0.00 - 0.50 K/[facility] LAB HEMETOLOGY METHOD 10/27/2024 12:37 PM [facility] Basophils Absolute 0.03 0.00 - 0.20 K/mcL LAB HEMETOLOGY METHOD 10/27/2024 12:37 PM [facility] Immature Granulocytes Absolute 0.02 0.00 - 0.03 K/[facility] LAB HEMETOLOGY METHOD 10/27/2024 12:37 PM [facility] Blood Venous blood specimen / Unknown Venipuncture / Unknown 10/27/2024 11:55 AM EST 10/27/2024 12:27 PM EST us Denny Soni MD LAB BLOOD ORDERABLES Final Res ult [facility] [address] [place] [address], * Type and screen (10/27/2024 11:55 AM EST) ABO Group A 10/27/2024 1:33 PM EST [facility] Rh Type Positive 10/27/2024 1:33 PM EST [facility] Antibody Screen Negative 10/27/2024 1:33 PM EST [facility] Blood Venous blood specimen / Unknown Venipuncture / Unknown 10/27/2024 11:55 AM EST 10/27/2024 12:27 PM EST us Denny Soni MD LAB BLOOD BANK TEST ORDERABLES Final Result [facility] [address] [place] [address], from Last 3 Months Insurance [facility] [email or web address] PLAN Advance Directives * Full Code - Default (Latest Code Status on File) Date Activated Date Inactivated Comments 11/02/2024 12:59 PM 11/02/2024 7:25 PM This is ord er is used when code status has not been discussed with the patient, or code status is otherwise unknown/unconfirmed To update the patient's code status, place a code status order. Do not modify or discontinue any currently active code status orders. Care Teams Product Evangelist Relationship Specialty Start Date End Date Sheela Palacio MD [address], [place] PCP - General Internal Medicine 06/17/17
== END 2025-01-20 12:19 | disposition home or self-care (01) ==
PROVIDERS: PCP Internal Medicine; Visit Provider Physician Assistant Medical
DX: R10.30 Lower abdominal pain, unspecified (principal); I10 Essential (primary) hypertension; E66.01 Morbid (severe) obesity due to excess calories; Z68.42 Body mass index [BMI] 45.0-49.9, adult; Z09 Encounter for follow-up examination after completed treatment for conditions other than malignant neoplasm

== ENCOUNTER → 2025-01-20 11:08 | Outpatient (BNVA) | payer OTHER, SELFPAY | PROVIDERS: PCP Internal Medicine; Visit Provider Physician Assistant Medical | DX: Z09 Encounter for follow-up examination after completed treatment for conditions other than malignant neoplasm (principal); R10.30 Lower abdominal pain, unspecified; I10 Essential (primary) hypertension; E66.01 Morbid (severe) obesity due to excess calories; Z68.42 Body mass index [BMI] 45.0-49.9, adult; Z71.3 Dietary counseling and surveillance | CPT/HCPCS: 96127; 99212 ==

== ENCOUNTER 2025-01-24 09:11 | Outpatient (REF) | payer OTHER, SELFPAY ==
--- OUTSIDE RECORDS SUMMARY | 2025-01-24 09:47 | XMS_ITS | Clinical Summary ---
Author Organization [facility] Address [address] [place] [address] Phone Care Team Providers Care Stage Producer Name Role Phone Sesar Noble MD Primary Care Provider [phone] Allergies No known active allergies Medications lisinopriL (PRINIVIL,ZESTRI L) 5 mg tablet Take 1 tablet (5 mg total) by mouth 1 (one) time each day. Active norgestimate-eth inyl estradioL (Tri-Estarylla) 0.18/0.215/0.25 mg-35 mcg (28) per tablet Take 1 tablet by mouth 1 (one) time each day. 02/22/2013 Active naproxen (NAPROSYN) 500 mg tablet Take 1 tablet (500 mg total) by mouth 2 (two) times a day with meals for 10 days. 20 tablet 01/22/2025 5 Active Active Problems No known active problems Encounters Date Type Department Care Team Description 01/22/2025 7:05 PM EST - 01/22/2025 10:[address] [facility] Emergency [address] [place] [address] Generalized abdominal pain (Primary Dx); Pelvic pain Discharge Disposition: Home or Self Care 11/02/2024 2:53 PM EST Anesthesia Event [facility] [place] [address] [place] [address] Cristo De La Torre MD Walsh, Michael, 11/02/2024 2:15 PM EST - 11/02/2024 3:[address] [facility] Main OR [address] [place] [id number] Denny Soni MD FRACTIONAL D&C, HYSTEROSCOPY, ?MYOSURE ENDOMETRIAL POLYP REMOVAL [54129 (CPT??)] 11/02/2024 12:53 PM EST - 11/02/2024 5:20 PM EST Hospital Encounter [facility] [place] [address] [place] [phone] Denny Soni MD Abnormal uterine and vaginal [...] = 0.6 oz pur e alcohol) rare Housing Instability Answer Date Recorde d Are you worried that in the next 2 months you may not have stable housing? Unable to respond 01/22/2025 Food Access & Nutrition Answer Date Rec orded Do you have access to a vari ety of food including fruits and vegetables? Unable to respond 01/22/2025 Health Literacy Answer Date Recorded How often do you need to hav e someone help you when you read instructions, pamphlets, or other written material from your doctor or pharmacy? Unable to respond 01/22/2025 Caregiver: How often do you need to have someone help you when you read instructions, pamphlets, or other written material from your doctor or pharmacy? Not on file 025 Financial Risk Answer Date Recorded How hard is it for you to pa y for the very basics like food, housing, medical care, and air conditioning / heating? Unable to respond 01/22/2025 Transportation Answer Date Recorded Has the lack of transportati on kept you from meetings, work, or from getting things needed for daily living? Unable to respond 01/22/2025 Has the lack of transportati on kept you from medical appointments or from getting medications? Unable to respond 01/22/2025 Social Isolation Answer Date Recorded How often do you feel lonely or isolated from those around you? Unable to respond 01/22/2025 Food Risk Answer Date Recorded Within the past 12 months we worried whether our food would run out before we got money to buy more. Unable to respond 025 Within the past 12 months th e food we bought just didn't last and we didn't have money to get more. Unable to respond 01/02 Dependent Care Answer Date Recorded Do you need help finding or paying for care for your loved ones. For example, child care teacher or elderly care for an older adult? Unable to respond 01/22/2025 Education Answer Date Recorded Do you think completing more education or training, like finishing a GED, going to college, or learning a trade, would be helpful for you? Unable to respond 01/22/2025 Employment and Income Answer Date Recor ded During the last four weeks, have you been actively looking for work? Unable to respond 01/22/2025 Living Situation Answer Date Recorded What is your living situation? 0 01/22/2025 Comments Unknown Sex and Gender Information Value Date Recorded Sex Assigned at Female 10/24/2024 8:08 PM EST Legal Sex Female 6:51 AM EST Gender Identity Female 10/24/2024 8:08 PM EST Sexual Orientation Straight 11/02/2024 12 :51 PM EST Obstetrics History Last Filed Vital Signs Vital Sign Reading Time Taken Comments Blood Pressure 148/68 01/22/2025 10:08 PM EST Pulse 50 01/22/2025 10:08 PM EST Temperature 36.3 ??C (97.3 ??F) 01/22/2025 10:[address] Respiratory Rate 16 01/22/2025 10:08 PM EST Oxygen Saturation 98% 01/22/2025 10:08 PM EST Inhaled Oxygen Concentration - - Weight 117 kg (257 lb) 01/22/2025 1:32 PM EST Height 162.6 cm (5' 4 ) 01/22/2025 1:32 PM EST Body Mass Index 44.11 01/22/2025 1:32 PM EST Plan of Treatment Health Maintenance [...] HIV Screening 11/03/2022 Hepatitis C Screening 11/03/2022 Influenza Vaccine (#1) 2024 Hypertension/CHF/CAD Annual BMP Blood Test 01/22/2026 01/22/2025 Social Influencers of Health Screening 01/22/2026 01/22/2025 HIB Vaccines Aged Out No longer eligi [...] Procedure Name Priority Date/Time Associated Diagnosis Comments US PELVIS NON OB COMPLETE W TRANSVAGINAL STAT 01/22/2025 8:59 PM EST ECG 12-LEAD STAT 01/22/2025 4:52 PM EST URINALYSIS WITH REFLEX MICROSCOPIC STAT 01/22/2025 1:51 PM EST URINALYSIS WITH REFLEX MICROSCOPIC STAT 01/22/2025 1:51 PM EST CBC WITH AUTO DIFFERENTIAL STAT 01/22/2025 1:48 PM EST LIPASE STAT 01/22/2025 1:48 PM EST COMPREHENSIVE METABOLIC PANEL STAT 01/22/2025 1:48 PM EST CBC AND DIFFERENTIAL STAT 01/22/2025 1:48 PM EST TISSUE EXAM Routine 11/02/2024 3:16 PM EST Abnormal uterine and vaginal bleeding, unspecified Polyp of corpus uteri TH AN ENDOTRACHEAL(NO CHARGE) Routine 11/02/2024 3:11 PM EST GA HYSTEROSCOPY W/BIOPSY ENDOMETRIUM AND/OR POLYPECTOMY W/O AND/OR W/D&C 11/02/2024 2:51 PM EST Abnormal uterine and vaginal bleeding, unspecified Case Notes MYOSURE Special Needs MYOSURE CBC WITH AUTO DIFFERENTIAL Routine 10/27/2024 11:55 AM EST Post-menopausal bleeding CBC AND DIFFERENTIAL Routine 10/27/2024 11:55 AM EST Post-menopausal bleeding TYPE AND SCREEN Routine 10/27/2024 11:55 AM EST Post-menopausal bleeding from Last 3 Months Results * US Pelvis Non OB Complete w Transvaginal (01/22/2025 8:59 PM EST) Anatomical Region Laterality Modality Body, Pelvis Ultrasound 01/22/2025 9:58 PM EST Impressions 01/22/2025 9:58 PM EST 1. Normal pelvic ultrasound with Doppler. No evidence of ovarian torsion. This document has been electronically signed by: Cristo Pride MD on 01/22/2025 21:58:27 Narrative 01/22/2025 9:58 PM EST INDICATION: pain US pelvis transabdominal and transvaginal with Doppler Comparison: None Findings: Transabdominal scanning performed for overall anatomy. Transvaginal scanning performed for additional detail. Anteverted uterus is 13.4 cm length. Normal myometrium. No endometrial lesion, 14 mm thickness. Right ovary 3.7 x 2.5 x 3.2 cm. Left ovary 3.9 x 2.6 x 2.5 cm. Normal color Doppler with arterial/venous spectral tracing of both ovaries. No free fluid. Procedure Note Cristo Pride MD - 01/22/2025 INDICATION: pain US pelvis transabdominal and transvaginal with Doppler Comparison: None Findings: Transabdominal scanning performed for overall anatomy. Transvaginal scanning performed for additional detail. Anteverted uterus is 13.4 cm length. Normal myometrium. No endometrial lesion, 14 mm thickness. Right ovary 3.7 x 2.5 x 3.2 cm. Left ovary 3.9 x 2.6 x 2.5 cm. Normal color Doppler with arterial/venous spectral tracing of both ovaries. No free fluid. IMPRESSION: 1. Normal pelvic ultrasound with Doppler. No evidence of ovariantorsion. This document has been electronically signed by: Cristo Pride MD on 01/22/2025 21:58:27 us Sheela ANDERSON IMG US PROCEDURES Final Re sult * ECG 12 lead (01/22/2025 4:52 PM EST) Ventricular Rate ECG 48 BPM GEMUSE Atrial Rate 48 BPM GEMUSE P-R Interval 164 ms GEMUSE QRS Duration 106 ms GEMUSE Q-T Interval 484 ms GEMUSE QTc 432 ms GEMUSE P Wave [place] 17 degrees GEMUSE R [place] 79 degrees GEMUSE T [place] 48 degrees GEMUSE ECG Interpretation Sinus bradycardia with marked sinus arrhythmia Otherwise normal ECG When compared with ECG of 31-AUG-2020 11:02, Premature atrial complexes are no longer Present Confirmed by AUGUSTIN PHAM ([id number]) on 01/23/2025 9:22:51 AM GEMUSE 01/22/2025 4:52 PM EST 01/23/2025 9:22 AM EST us Phan Moran MD ECG ORDERABLES Final Resul t GEMUSE * Urinalysis with reflex microscopic (01/22/2025 1:51 PM EST) Specific [place] Urine 1.011 1.003 - 1.030 LAB URINALYSIS - AUTOMATED METHOD 01/22/2025 2:02 PM [facility] pH, Urine 7.0 5.0 - 8.0 pH LAB URINALYSIS - AUTOMATED METHOD 01/22/2025 2:02 PM [facility] Leukocytes, Urine Negative Negative LAB URINALYSIS - AUTOMATED METHOD 01/22/2025 2:02 PM [facility] Nitrite, Urine Negative Negative LAB URINALYSIS - AUTOMATED METHOD 01/22/2025 2:02 PM [facility] Protein, Urine Negative <=Trace mg/dL LAB URINALYSIS - AUTOMATED METHOD 01/22/2025 2:02 PM [facility] Glucose, Urine Negative Negative mg/dL LAB URINALYSIS - AUTOMATED METHOD 01/22/2025 2:02 PM [facility] Ketones, Urine Negative Negative mg/dL LAB URINALYSIS - AUTOMATED METHOD 01/22/2025 2:02 PM [facility] Urobilinogen, Urine 0.2 0.2 - 1.0 mg/dL LAB URINALYSIS - AUTOMATED METHOD 01/22/2025 2:02 PM [facility] Bilirubin, Urine Negative Negative LAB URINALYSIS - AUTOMATED METHOD 01/22/2025 2:02 PM [facility] Blood, Urine Negative Negative LAB URINALYSIS - AUTOMATED METHOD 01/22/2025 2:02 PM [facility] Urine Urine specimen obtained by clean catch procedure / Unknown Non-blood Collection / Unknown 01/22/2025 1:51 PM EST 01/22/2025 1:58 PM EST us Phan Moran MD LAB URINE ORDERABLES Final Result [facility] [address] [place] [address], [place] [phone] * (ABNORMAL) CBC auto differential (01/22/2025 1:48 PM EST) Only the most recent of2 resultswithin the time period is included. WBC 7.2 4.8 - 10.8 K/mcL LAB HEMETOLOGY METHOD 01/22/2025 2:03 PM [facility] RBC 4.20 3.80 - 4.80 M/mcL LAB HEMETOLOGY METHOD 01/22/2025 2:03 PM [facility] Hemoglobin 12.1 11.5 - 16.0 g/dL LAB HEMETOLOGY METHOD 01/22/2025 2:03 PM [facility] Hematocrit 38.2 35.0 - 47.0 % LAB HEMETOLOGY METHOD 01/22/2025 2:03 PM [facility] MCV 91.4 79.0 - 98.0 FL LAB HEMETOLOGY METHOD 01/22/2025 2:03 PM [facility] MCH 28.9 27.0 - 32.0 pcg LAB HEMETOLOGY METHOD 01/22/2025 2:03 PM [facility] MCHC 31.7(L) 32.0 - 37.0 g/dL LAB HEMETOLOGY METHOD 01/22/2025 2:03 PM [facility] RDW 14.2 11.0 - 15.0 % LAB HEMETOLOGY METHOD 01/22/2025 2:03 PM [facility] Platelets 265 130 - 400 K/mcL LAB HEMETOLOGY METHOD 01/22/2025 2:03 PM [facility] MPV 9.9 7.0 - 11.0 FL LAB HEMETOLOGY METHOD 01/22/2025 2:03 PM [facility] NRBC 0.0 <1.0 % LAB HEMETOLOGY METHOD 01/22/2025 2:03 PM [facility] NRBC Absolute 0.00 <0.10 K/mcL LAB HEMETOLOGY METHOD 01/22/2025 2:03 PM [facility] Neutrophils Relative 64.0 % LAB HEMETOLOGY METHOD 01/22/2025 2:03 PM [facility] Lymphocytes Relative 22.5 % LAB HEMETOLOGY METHOD 01/22/2025 2:03 PM [facility] Monocytes Relative 8.1 % LAB HEMETOLOGY METHOD 01/22/2025 2:03 PM [facility] Eosinophils Relative 4.4 % LAB HEMETOLOGY METHOD 01/22/2025 2:03 PM [facility] Basophils Relative 0.6 % LAB HEMETOLOGY METHOD 01/22/2025 2:03 PM [facility] Immature Granulocytes Relative 0.4 % LAB HEMETOLOGY METHOD 01/22/2025 2:03 PM [facility] Neutrophils Absolute 4.63 1.50 - 7.00 K/mcL LAB HEMETOLOGY METHOD 01/22/2025 2:03 PM [facility] Lymphocytes Absolute 1.63 1.00 - 5.00 K/mcL LAB HEMETOLOGY METHOD 01/22/2025 2:03 PM [facility] Monocytes Absolute 0.59 0.20 - 1.00 K/mcL LAB HEMETOLOGY METHOD 01/22/2025 2:03 PM [facility] Eosinophils Absolute 0.32 0.00 - 0.50 K/mcL LAB HEMETOLOGY METHOD 01/22/2025 2:03 PM [facility] Basophils Absolute 0.04 0.00 - 0.20 K/mcL LAB HEMETOLOGY METHOD 01/22/2025 2:03 PM EST [facility] Immature Granulocytes Absolute 0.03 0.00 - 0.03 K/mcL LAB HEMETOLOGY METHOD 01/22/2025 2:03 PM EST [facility] Blood Venous blood specimen / Unknown Venipuncture / Unknown 01/22/2025 1:48 PM EST 01/22/2025 1:58 PM EST Phan Moran MD LAB BLOOD ORDERABLES Final Result Performing Organization Address City/[facility]/ZIP Co de Phone Number [facility] [address] [place] [address], [place] [phone] * Lipase (01/22/2025 1:48 PM EST) Lipase 33 13 - 75 unit/L LAB CHEMISTRY METHOD 01/22/2025 2:30 PM [facility] Blood Venous blood specimen / Unknown Venipuncture / Unknown 01/22/2025 1:48 PM EST 01/22/2025 1:58 PM EST Phan Moran MD LAB BLOOD ORDERABLES Final Result Performing Organization Address [facility]/ZIP Co de Phone Number [facility] [address] [place] [address], [place] [phone] * Comprehensive metabolic panel (01/22/2025 1:48 PM EST) Sodium 138 133 - 145 mmol/L LAB CHEMISTRY METHOD 01/22/2025 2:30 PM EST [facility] Potassium 4.1 3.5 - 5.5 mmol/L LAB CHEMISTRY METHOD 01/22/2025 2:30 PM [facility] Chloride 105 96 - 110 mmol/L LAB CHEMISTRY METHOD 01/22/2025 2:30 PM EST [facility] CO2 25 21 - 32 mmol/L LAB CHEMISTRY METHOD 01/22/2025 2:30 PM [facility] Anion Gap 8 3 - 11 LAB CHEMISTRY METHOD 01/22/2025 2:30 PM [facility] Glucose 92 70 - 100 mg/dL LAB CHEMISTRY METHOD 01/22/2025 2:30 PM [facility] BUN 11 5 - 25 mg/dL LAB CHEMISTRY METHOD 01/22/2025 2:30 PM [facility] Creatinine 0.54 0.50 - 1.10 mg/dL LAB CHEMISTRY METHOD 01/22/2025 2:30 PM [facility] eGFR 121 >=60 mL/min/1. 73m2 LAB CHEMISTRY METHOD 01/22/2025 2:30 PM [facility] Comment:Calculation based on the??Chronic Kidney Disease Epidemiology Collaboration (CKD-EPI) equation refit??without adjustment for race. BUN/Creatinine Ratio 20.4 LAB CHEMISTRY METHOD 01/22/2025 2:30 PM [facility] Calcium 8.9 8.5 - 10.5 mg/dL LAB CHEMISTRY METHOD 01/22/2025 2:30 PM [facility] AST (SGOT) 28 10 - 42 unit/L LAB CHEMISTRY METHOD 01/22/2025 2:30 PM [facility] ALT (SGPT) 43 10 - 60 unit/L LAB CHEMISTRY METHOD 01/22/2025 2:30 PM [facility] Alkaline Phosphatase 72 42 - 121 unit/L LAB CHEMISTRY METHOD 01/22/2025 2:30 PM [facility] Total Protein 6.9 6.0 - 8.0 g/dL LAB CHEMISTRY METHOD 01/22/2025 2:30 PM [facility] Albumin 3.6 3.2 - 5.0 g/dL LAB CHEMISTRY METHOD 01/22/2025 2:30 PM [facility] Total Bilirubin 0.5 0.0 - 1.4 mg/dL LAB CHEMISTRY METHOD 01/22/2025 2:30 PM EST [facility] Blood Venous blood specimen / Unknown Venipuncture / Unknown 01/22/2025 1:48 PM EST 01/22/2025 1:58 PM EST us Phan Moran MD LAB BLOOD ORDERABLES Final Result [facility] [address] [place] [address], [place] [phone] * Tissue exam (11/02/2024 3:16 PM EST) Final Diagnosis A. Endocervical curettings: Benign endocervical mucosa with mild chronic endocervicitis Benign lower uterine segment tissue B. Endometrial curettings: Secretory endometrium, polypoid - No unequivocal endometrial polyp identified - No endometrial hyperplasia or neoplasm identified Benign endocervix 11/04/2024 11:29 AM [facility] Gross Description A. Cervix, [...] each, x 2. TS 11/04/2024 11:29 AM [facility] Disclaimer Unless otherwise specified, all tissue is 10% NB formalin fixed and paraffin embedded. 11/04/2024 11:29 AM [facility] Tissue Cervix uteri structure / Unknown 11/02/2024 3:16 PM EST 11/03/2024 6:05 AM EST Tissue specimen (specimen) Endometrial structure / Unknown 11/02/2024 3:18 PM EST 11/03/2024 6:05 AM EST us Denny Soni MD LAB PATHOLOGY ORDERABLES Final Result [facility] [address] [place] [address], * TH AN ENDOTRACHEAL(NO CHARGE) (11/02/2024 3:11 PM EST) Yumiko Montenegro CRNA - 11/02/2024 3:11 PM EST Yumiko Arroyo CRNA ? 11/02/2024 ??3:13 PM General Information and Staff Patient location during procedure: OR Anesthesiologist: Cristo De La Torre MD Resident/TEST DESIGN ENGINEER: Yumiko Arroyo CRNA Performed: resident/TEST DESIGN ENGINEER/CAA Performed by: Yumiko Arroyo CRNA Authorized by: [...] 11/02/2024 3:05 PMStop Time: 11/02/2024 3:05 PM Cristo De La Torre MD ANESTHESIA ORDERABLES Final Re sult * Type and screen (10/27/2024 11:55 AM EST) ABO Group A 10/27/2024 1:33 PM EST [facility] Rh Type Positive 10/27/2024 1:33 PM EST [facility] Antibody Screen Negative 10/27/2024 1:33 PM EST [facility] Blood Venous blood specimen / Unknown Venipuncture / Unknown 10/27/2024 11:55 AM EST 10/27/2024 12:27 PM EST us Denny Soni MD LAB BLOOD BANK TEST ORDERABLES Final Result [facility] [address] [place] [address], from Last 3 Months Insurance [facility] [employer] [facility] Advance Directives * Full Code - Default [...] currently active code status orders. Care Teams Stage Producer Relationship Specialty Start Date End Date Sesar Noble MD [facility] [address] [facility] [address] PCP - General Internal Medicine 01/22/25
--- OUTSIDE RECORDS SUMMARY | 2025-01-24 09:48 | XMS_ITS | Encounter Summary ---
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 Name Role Phone Sesar Noble MD Primary Care Provider [phone] Reason for Visit * Reason Comments Abdominal Pain Dizziness SUDDEN ABD PAIN WHIL E AT WORK TODAY Encounter Details Date Type Department Care Team (Late st Contact Info) Description 01/22/2025 7:05 PM EST - 01/22/2025 10:34 PM EST Emergency [facility] Emergency [address] [place] [address] Generalized abdominal pain (Primary Dx); Pelvic pain Discharge Disposition: Home or Self Care Social History Tobacco Use Types Packs/Day Years Used Date Smoking Tobacco: Former Cigarettes Q uit: 10/31/2012 Passive Smoke Exposure: Past Smokeless Tobacco: Never Alcohol Use Standard Drinks/Week Comments Yes 0 [...] for your loved ones. 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 [...] Orientation Straight 11/02/2024 12 :51 PM EST documented as of this encounter Last Filed Vital Signs Vital Sign Reading [...] Mass Index 44.11 01/22/2025 1:32 PM EST documented in this encounter Discharge Instructions * Discharge Instructions* JUSTIN Martinez - 01/22/2025 10:18 PM EST I am discharging you home with Naprosyn that you may take twice daily as needed for your discomfort. As discussed, I would like you to follow-up with your [employer] [facility]ER for ongoing evaluation if your pain persists. Call on Friday to schedule this outpatient follow-up. Follow up with your primary provider. Call tomorrow for appointment. Return to Emergency Department if symptoms worsen, do not improve, or any other concern. Get well soon! Thank you for coming to the [facility] Emergency Department today. Our entire team works together to provide you with the best care possible. Examination and treatment you received in the emergency department has been rendered on an EMERGENCY basis only. It is not intended to be a substitute for or an effort to provide complete medical care. You should follow-up with your primary care provider. Please report to your physician any new or remaining problems, because it is impossible to recognize and treat all elements of injury or illness in a single emergency department visit. In the event that you're unable to obtain a followup appointment in a timely fashion, OR you are not getting any better, OR you are getting worse, OR you develop any symptoms of concern, please return here immediately for further evaluation. The emergency department is open 24 hours a day, 7 days aweek. Your discharge report is based on information that was available when you were in the emergency department. If you do not have a primary care provider, please contact one of the following to make arrangements to follow up. [facility] * Attachments The following attachments cannot be sent through Care Everywhere. * Pelvic Pain (Icelandic) documented in this encounter Medications at Time of Discharge lisinopriL (PRINIVIL,ZESTRIL ) 5 mg tablet Take 1 tablet (5 mg total) by mouth 1 (one) time each day. norgestimate-ethi nyl estradioL (Tri-Estarylla) 0.18/0.215/0.25 mg-35 mcg (28) per tablet Take 1 tablet by mouth 1 (one) time each day. 02/22/2013 naproxen (NAPROSYN) 500 mg tablet Take 1 tablet (500 mg total) by mouth 2 (two) times a day with meals for 10 days. 20 tablet 01/22/2025 02/01/2025 documented as of this encounter Ordered Prescriptions Prescription Sig Dispense Quantity Refills Last Filled Start Date End Date naproxen (NAPROSYN) 500 mg tablet Take 1 tablet (500 mg total) by mouth 2 (two) times a day with meals for 10 days. 20 tablet 01/22/2025 02/01/2025 documented in this encounter Discharge Disposition Disposition Code Departure Means Destination Comment s Home or Self Care documented in this encounter Progress Notes * Kateryna Davidson RN - 01/22/2025 1:30 PM EST While at work experienced sudden lower abdominal pain sharp in nature rx to groin,nausea, dizzinessand 'feeling uncoordinated'; denies gu/gi sx, lmp 01/14 * JUSTIN Martinez - 01/22/2025 1:17 PM EST Emergency Medicine Note Patient Name: Jose Hernandez Initial Evaluation: 01/22/2025 : 1985 Patient's PCP: Sesar Noble MD Emergency Physician: JUSTIN Martinez History of Present Illness Chief Complaint: Chief Complaint Patient presents with Abdominal Pain Dizziness SUDDEN ABD PAIN WHILE AT WORK TODAY This is a 39-year-old female with a past medical history of cholecystectomy, appendectomy and abnormal uterine bleeding for which she had a hysteroscope in October 2024 presenting for evaluation of a sharp pressure-like sensation that she experienced suddenly when at work at approximately 12 PM today. Patient has taken ibuprofen with minimal relief of her discomfort. Patient denies having any fevers, chills, dysuria, urinary frequency, vaginal discharge or dyspareunia. ROS: I have performed a ROS with the pertinent positives and negatives documented in the history ofpresent illness. Previous History Past Medical History: Diagnosis Date Chronic kidney disease kidney stones Hypertension Past Surgical History: Procedure Laterality Date APPENDECTOMY Right SECTION x 2 CHOLECYSTECTOMY Social History Tobacco Use Smoking status: Former Current packs/day: 0.00 Types: Cigarettes Quit date: 10/31/2012 Years since quittin.2 Passive exposure: Past Smokeless tobacco: Never Substance Use Topics Alcohol use: Yes Comment: rare Drug use: Yes Types: Marijuana/Cannabis Comment: vape 4 puffs / aday Family History Problem Relation Name Age of Onset Heart attack Father Hypertension Mother Hypertension Father has No Known Allergies. No current facility-administered medications on file prior to encounter. Current Outpatient Medications on File Prior to Encounter Medication Sig Dispense Refill lisinopriL (PRINIVIL,ZESTRIL) 5 mg tablet Take 1 tablet (5 mg total) by mouth 1 (one) time each day. norgestimate-ethinyl estradioL (Tri-Estarylla) 0.18/0.215/0.25 mg-35 mcg (28) per tablet Take 1 tablet by mouth 1 (one) time each day. Physical Exam ED Triage Vitals [01/22/25 1332] Temp Heart Rate Resp BP 36.6 ??C (97.9 ??F) (!) 41 16 (!) 161/83 SpO2 Temp Source Heart Rate Source Patient Position 99 % Oral -- Sitting BP Location FiO2 (%) -- -- Physical Exam General: awake, calm, cooperative, obese, no apparent distress, vital signs reviewed, patient is afebrile Skin: warm, dry, no diaphoresis Cardiovascular: regular rate and rhythm, no murmur Gastrointestinal: soft, suprapubic tenderness R > L, abdomen is nondistended, normal active bowel sounds Neurological: alert and oriented X3, no focal deficits Psychiatric: stable mood and affect, fluid speech, good eye contact and appropriate demeanor Results Labs Reviewed CBC WITH AUTO DIFFERENTIAL - Abnormal Result Value WBC 7.2 RBC 4.20 Hemoglobin 12.1 Hematocrit 38.2 MCV 91.4 MCH 28.9 MCHC 31.7 (*) RDW 14.2 Platelets 265 MPV 9.9 NRBC 0.0 NRBC Absolute 0.00 Neutrophils Relative 64.0 Lymphocytes Relative 22.5 Monocytes Relative 8.1 Eosinophils Relative 4.4 Basophils Relative 0.6 Immature Granulocytes Relative 0.4 Neutrophils Absolute 4.63 Lymphocytes Absolute 1.63 Monocytes Absolute 0.59 Eosinophils Absolute 0.32 Basophils Absolute 0.04 Immature Granulocytes Absolute 0.03 COMPREHENSIVE METABOLIC PANEL - Normal Sodium 138 Potassium 4.1 Chloride 105 CO2 25 Anion Gap 8 Glucose 92 BUN 11 Creatinine 0.54 eGFR 121 BUN/Creatinine Ratio 20.4 Calcium 8.9 AST (SGOT) 28 ALT (SGPT) 43 Alkaline Phosphatase 72 Total Protein 6.9 Albumin 3.6 Total Bilirubin 0.5 LIPASE - Normal Lipase 33 URINALYSIS WITH REFLEX MICROSCOPIC - Normal Specific [place] Urine 1.011 pH, Urine 7.0 Leukocytes, Urine Negative Nitrite, Urine Negative Protein, Urine Negative Glucose, Urine Negative Ketones, Urine Negative Urobilinogen, Urine 0.2 Bilirubin, Urine Negative Blood, Urine Negative CBC AND DIFFERENTIAL Narrative: The following orders were created for panel order CBC and differential. Procedure Abnormality Status --------- ------ CBC auto differential[[id number]] Abnormal Final result Please view results for these tests on the individual orders. URINALYSIS WITH REFLEX MICROSCOPIC Narrative: The following orders were created for panel order Urinalysis with reflex microscopic. Procedure Abnormality Status --------- ------ Urinalysis with reflex ...[[id number]] Normal Final result Please view results for these tests on the individual orders. POC , URINE DIAGNOSTIC HCG, Ur POC POC hCG Int QC Pass? EXPIRATION DATE POC LOT NUMBER POC Abnormal Labs Reviewed CBC WITH AUTO DIFFERENTIAL - Abnormal; Notable for the following components: Result Value MCHC 31.7 (*) All other components within normal limits US Pelvis Non OB Complete w Transvaginal Final Result 1. Normal pelvic ultrasound with Doppler. No evidence of ovarian torsion. This document has been electronically signed by: Cristo Pride MD on 01/22/2025 21:58:27 I have discussed the incidental/abnormal imaging and/or lab abnormalities with the patient and haveinstructed them the need for further evaluation and workup with their primary care doctor. The laboratory results, imaging results and other diagnostic exam results were reviewed in the EMR. EKG Interpretation Critical Care Time None ? Differential Diagnosis Ovarian cyst Ovarian torsion Diverticulitis Acute urinary tract infection Medical Decision Making Medical Decision Making Patient is evaluated with her present. Patient will be given IV fluids and analgesia and pelvic ultrasound imaging will be obtained. Medications morphine injection 4 mg (4 mg intravenous Given 01/22/252015) ondansetron (PF) (ZOFRAN) injection 4 mg (4 mg intravenous Given 01/22/252016) sodium chloride 0.9 % bolus 1,000 mL (0 mL intravenous Stopped 01/22/252205) ED Course as of 01/22/252218 Sat Jan 22, 20252212 There are no findings noted on pelvic ultrasound imaging. Patient will be discharged home. [RO] ED Course User Index [RO] JUSTIN Martinez Clinical Impressions as of 01/22/252218 Generalized abdominal pain Pelvic pain Procedures Procedures Diagnosis 1. Generalized abdominal pain 2. Pelvic pain Disposition Discharge ED Prescriptions Medication Sig Dispense Start Date End Date Auth. Provider naproxen (NAPROSYN) 500 mg tablet Take 1 tablet (500 mg total) by mouth 2 (two) times a day with meals for 10 days. 20 tablet 01/22/2025 02/01/2025 JUSTIN Martinez Physician Attestation JUSTIN Martinez 01/22/252018 JUSTIN Martinez 01/22/252218 Cosigned by Alexy Ceron DO at 01/22/2025 10:59 PM EST documented in this encounter Plan of Treatment Pending Results Name Type Priority Associated Diagnoses Date /Time POC , urine manually resulted Point of Care Testing STAT 01/22/2025 2:15 PM EST Scheduled Orders Name Type Priority Associated Diagnoses Orde r Schedule POC , urine manually resulted Point of Care Testing STAT Once for 1 Occurrences starting 01/22/2025 until 01/22/2025 documented as of this encounter Procedures Procedure Name Priority Date/Time Associated Diagnosis Comments US PELVIS NON OB COMPLETE W TRANSVAGINAL STAT 01/22/2025 8:59 PM EST ECG 12-LEAD STAT 01/22/2025 4:52 PM EST URINALYSIS WITH REFLEX MICROSCOPIC STAT 01/22/2025 1:51 PM EST URINALYSIS WITH REFLEX MICROSCOPIC STAT 01/22/2025 1:51 PM EST CBC WITH AUTO DIFFERENTIAL STAT 01/22/2025 1:48 PM EST CBC AND DIFFERENTIAL STAT 01/22/2025 1:48 PM EST LIPASE STAT 01/22/2025 1:48 PM EST COMPREHENSIVE METABOLIC PANEL STAT 01/22/2025 1:48 PM EST documented in this encounter Results * US Pelvis Non OB Complete [...] GEMUSE QTc 432 ms GEMUSE P Wave Lester 17 degrees GEMUSE R Lester 79 degrees GEMUSE T Lester 48 degrees GEMUSE ECG Interpretation Sinus bradycardia [...] reflex microscopic (01/22/2025 1:51 PM EST) Specific [place] Urine 1.011 1.003 - 1.030 LAB URINALYSIS - AUTOMATED METHOD 01/22/2025 2:02 PM [facility] pH, Urine 7.0 5.0 - 8.0 pH LAB URINALYSIS - AUTOMATED METHOD 01/22/2025 2:02 PM [facility] Leukocytes, Urine Negative Negative LAB URINALYSIS - AUTOMATED METHOD 01/22/2025 2:02 PM [facility] Nitrite, Urine Negative Negative LAB URINALYSIS - AUTOMATED METHOD 01/22/2025 2:02 PM [facility] Protein, Urine Negative <=Trace mg/dL LAB URINALYSIS - AUTOMATED METHOD 01/22/2025 2:02 PM [facility] Glucose, Urine Negative Negative mg/dL LAB URINALYSIS - AUTOMATED METHOD 01/22/2025 2:02 PM [facility] Ketones, Urine Negative Negative mg/dL LAB URINALYSIS - AUTOMATED METHOD 01/22/2025 2:02 PM [facility] Urobilinogen, Urine 0.2 0.2 - 1.0 mg/dL LAB URINALYSIS - AUTOMATED METHOD 01/22/2025 2:02 PM [facility] Bilirubin, Urine Negative Negative LAB URINALYSIS - AUTOMATED METHOD 01/22/2025 2:02 PM [facility] Blood, Urine Negative Negative LAB URINALYSIS - AUTOMATED METHOD 01/22/2025 2:02 PM [facility] Urine Urine specimen obtained by clean catch procedure / Unknown Non-blood Collection / Unknown 01/22/2025 1:51 PM EST 01/22/2025 1:58 PM EST us Phan Moran MD LAB URINE ORDERABLES Final Result [facility] [address] [place] [address], [place] [phone] * (ABNORMAL) CBC auto differential (01/22/2025 1:48 PM EST) [facility] WBC 7.2 4.8 - 10.8 K/mcL LAB HEMETOLOGY METHOD 01/22/2025 2:03 PM [facility] RBC 4.20 3.80 - 4.80 M/mcL LAB HEMETOLOGY METHOD 01/22/2025 2:03 PM [facility] Hemoglobin 12.1 11.5 - 16.0 g/dL LAB HEMETOLOGY METHOD 01/22/2025 2:03 PM [facility] Hematocrit 38.2 35.0 - 47.0 % LAB HEMETOLOGY METHOD 01/22/2025 2:03 PM [facility] MCV 91.4 79.0 - 98.0 FL LAB HEMETOLOGY METHOD 01/22/2025 2:03 PM [facility] MCH 28.9 27.0 - 32.0 pcg LAB HEMETOLOGY METHOD 01/22/2025 2:03 PM [facility] MCHC 31.7(L) 32.0 - 37.0 g/dL LAB HEMETOLOGY METHOD 01/22/2025 2:03 PM [facility] RDW 14.2 11.0 - 15.0 % LAB HEMETOLOGY METHOD 01/22/2025 2:03 PM [facility] Platelets 265 130 - 400 K/mcL LAB HEMETOLOGY METHOD 01/22/2025 2:03 PM [facility] MPV 9.9 7.0 - 11.0 FL LAB HEMETOLOGY METHOD 01/22/2025 2:03 PM [facility] NRBC 0.0 <1.0 % LAB HEMETOLOGY METHOD 01/22/2025 2:03 PM [facility] NRBC Absolute 0.00 <0.10 K/mcL LAB HEMETOLOGY METHOD 01/22/2025 2:03 PM [facility] Neutrophils Relative 64.0 % LAB HEMETOLOGY METHOD 01/22/2025 2:03 PM [facility] Lymphocytes Relative 22.5 % LAB HEMETOLOGY METHOD 01/22/2025 2:03 PM [facility] Monocytes Relative 8.1 % LAB HEMETOLOGY METHOD 01/22/2025 2:03 PM [facility] Eosinophils Relative 4.4 % LAB HEMETOLOGY METHOD 01/22/2025 2:03 PM [facility] Basophils Relative 0.6 % LAB HEMETOLOGY METHOD 01/22/2025 2:03 PM [facility] Immature Granulocytes Relative 0.4 % LAB HEMETOLOGY METHOD 01/22/2025 2:03 PM [facility] Neutrophils Absolute 4.63 1.50 - 7.00 K/mcL LAB HEMETOLOGY METHOD 01/22/2025 2:03 PM [facility] Lymphocytes Absolute 1.63 1.00 - 5.00 K/mcL LAB HEMETOLOGY METHOD 01/22/2025 2:03 PM [facility] Monocytes Absolute 0.59 0.20 - 1.00 K/mcL LAB HEMETOLOGY METHOD 01/22/2025 2:03 PM [facility] Eosinophils Absolute 0.32 0.00 - 0.50 K/mcL LAB HEMETOLOGY METHOD 01/22/2025 2:03 PM [facility] Basophils Absolute 0.04 0.00 - 0.20 K/mcL LAB HEMETOLOGY METHOD 01/22/2025 2:03 PM [facility] Immature Granulocytes Absolute 0.03 0.00 - 0.03 K/mcL LAB HEMETOLOGY METHOD 01/22/2025 2:03 PM [facility] Blood Venous blood specimen / Unknown Venipuncture / Unknown 01/22/2025 1:48 PM EST 01/22/2025 1:58 PM EST Phan Moran MD LAB BLOOD ORDERABLES Final Result Performing Organization Address [facility]/ZIP Co de Phone Number [facility] [address] [place] [address], [place] [phone] * Lipase (01/22/2025 1:48 PM EST) [facility] Lipase 33 13 - 75 unit/L LAB CHEMISTRY METHOD 01/22/2025 2:30 PM EST [facility] Blood Venous blood specimen / Unknown Venipuncture / Unknown 01/22/2025 1:48 PM EST 01/22/2025 1:58 PM EST Phan Moran MD LAB BLOOD ORDERABLES Final Result Performing Organization Address [facility]/ZIP Co de Phone Number [facility] [address] [place] [address], [place] [phone] * Comprehensive metabolic panel (01/22/2025 1:48 PM EST) [facility] Sodium 138 133 - 145 mmol/L LAB CHEMISTRY METHOD 01/22/2025 2:30 PM [facility] Potassium 4.1 3.5 - 5.5 mmol/L LAB CHEMISTRY METHOD 01/22/2025 2:30 PM [facility] Chloride 105 96 - 110 mmol/L LAB CHEMISTRY METHOD 01/22/2025 2:30 PM [facility] CO2 25 21 - 32 mmol/L LAB CHEMISTRY METHOD 01/22/2025 2:30 PM [facility] Anion Gap 8 3 - 11 LAB CHEMISTRY METHOD 01/22/2025 2:30 PM [facility] Glucose 92 70 - 100 mg/dL LAB CHEMISTRY METHOD 01/22/2025 2:30 PM [facility] BUN 11 5 - 25 mg/dL LAB CHEMISTRY METHOD 01/22/2025 2:30 PM [facility] Creatinine 0.54 0.50 - 1.10 mg/dL LAB CHEMISTRY METHOD 01/22/2025 2:30 PM [facility] eGFR 121 >=60 mL/min/1. 73m2 LAB CHEMISTRY METHOD 01/22/2025 2:30 PM [facility] Comment:Calculation based on the??Chronic Kidney Disease Epidemiology Collaboration (CKD-EPI) equation refit??without adjustment for race. BUN/Creatinine Ratio 20.4 LAB CHEMISTRY METHOD 01/22/2025 2:30 PM [facility] Calcium 8.9 8.5 - 10.5 mg/dL LAB CHEMISTRY METHOD 01/22/2025 2:30 PM [facility] AST (SGOT) 28 10 - 42 unit/L LAB CHEMISTRY METHOD 01/22/2025 2:30 PM [facility] ALT (SGPT) 43 10 - 60 unit/L LAB CHEMISTRY METHOD 01/22/2025 2:30 PM [facility] Alkaline Phosphatase 72 42 - 121 unit/L LAB CHEMISTRY METHOD 01/22/2025 2:30 PM [facility] Total Protein 6.9 6.0 - 8.0 g/dL LAB CHEMISTRY METHOD 01/22/2025 2:30 PM [facility] Albumin 3.6 3.2 - 5.0 g/dL LAB CHEMISTRY METHOD 01/22/2025 2:30 PM [facility] Total Bilirubin 0.5 0.0 - 1.4 mg/dL LAB CHEMISTRY METHOD 01/22/2025 2:30 PM [facility] Blood Venous blood specimen / Unknown Venipuncture / Unknown 01/22/2025 1:48 PM EST 01/22/2025 1:58 PM EST us Phan Moran MD LAB BLOOD ORDERABLES Final Result [facility] [address] [place] [address], documented in this encounter Visit Diagnoses Diagnosis Generalized abdominal pain- Primary Abdominal pain, generalized Pelvic pain documented in this encounter Administered Medications Inactive Administered Medications - up to 3 most recent administrations Medication Order MAR Action Action Date Dose Rate Site morphine injection 4 mg 4 mg, intravenous, Once, On 01/22/25 at 2004, For 1 dose Given 01/22/2025 8:16 PM EST 4 mg ondansetron (PF) (ZOFRAN) injection 4 mg 4 mg, intravenous, Once, On 01/22/25 at 2004, For 1 dose Given 01/22/2025 8:17 PM EST 4 mg sodium chloride 0.9 % bolus 1,000 mL 1,000 mL, intravenous, at 4,000 mL/hr, Administer over 0.25 Hours, Once, On 01/22/25 at 2004, For 1 dose New Bag 01/22/2025 8:16 PM EST 1,000 mL 4000 mL/hr documented in this encounter Active and Recently Administered Medications Times are shown in EST. Scheduled Medication Order 01/20/2025 01/21/2025 01/22/2025 morphine injection 4 mg (COMPLETED) 4 mg, intravenous, Once, On 01/22/25 at 2004, For 1 dose 2015 (Given - Provid er: Emma Zuniga RN) ondansetron (PF) (ZOFRAN) injection 4 mg (COMPLETED) 4 mg, intravenous, Once, On 01/22/25 at 2004, For 1 dose 2016 (Given - Provid er: Emma Zuniga RN) sodium chloride 0.9 % bolus 1,000 mL (COMPLETED) 1,000 mL, intravenous, at 4,000 mL/hr, Administer over 0.25 Hours, Once, On 01/22/25 at 2004, For 1 dose 2015 (New Bag - Prov ider: Emma Zuniga, RN)2205 (Stopped - Provider: Emma Zuniga RN) documented in this encounter Care Teams Trucking Supervisor Relationship Specialty Start Date End Date Sesar Noble MD [address] [place] [address] PCP - General Internal Medicine 01/22/25 documented as of this encounter
[2025-01-24 10:22] LABS: Appearance Urine Clear; Color Urine Yellow; Glucose Urine UA Negative (Negative); Leukocyte Esterase Urine Negative (Negative); Nitrite Urine Negative (Negative); PH 5.5 (5.0-9.0); Urine Blood Negative (Negative); Urine Ketones Negative (Negative); Urine Protein Negative (Neg-Trace)
[2025-01-24 10:25] LABS: MANUAL DIFF FLAG NO
[2025-01-24 10:35] LABS: Basophils Percent Auto 0.5 % (0-2); Eosinophils Absolute Auto 0.4 X10*3/uL (0.0-0.4); Eosinophils Percent Auto 7.1 % (0-4); Hematocrit 38.4 % (37.0-47.0); Hemoglobin 12.6 g/dl (12.0-16.0); Imm Gran Abs Auto 0.02 X10*3/uL (0.00-0.03); Imm Gran Pct Auto 0.3 % (0.0-0.4); Lymphocytes Absolute Auto 1.7 X10*3/uL (1.2-4.9); Lymphocytes Percent Auto 28.8 % (20-40); Mean Corpuscular HGB Conc 32.8 g/dl (31.0-35.0); Mean Corpuscular Hemoglobin 29.4 pg (27.0-33.0); Mean Corpuscular Volume 89.7 fL (80.0-98.0); Mean Platelet Volume 10.2 fL (9.4-12.3); Monocytes Absolute Auto 0.4 X10*3/uL (0.1-1.2); Monocytes Percent Auto 7.3 % (2-11); Neutrophils Absolute Auto 3.3 x10*3/uL (2.0-8.3); Platelet Count 264 X10*3/uL (160-400); Red Blood Count 4.28 X10*6/uL (4.20-5.50); Red Cell Distribution Width 14.1 % (11.0-16.0); White Blood Count 5.9 X10*3/uL (4.8-10.8)
[2025-01-24 11:02] LABS: Estimated Average Glucose 103 mg/dL; Hemoglobin A1c % 5.2 % (<6.0)
[2025-01-24 11:08] LABS: Alanine Aminotransferase 31 U/L (0-31); Albumin Level 3.7 g/dL (3.5-5.0); Alkaline Phosphatase 58 U/L (39-117); Anion Gap 12 (12-20); Aspartate Amino Transferase 22 U/L (5-31); Bilirubin Direct 0.1 mg/dL (0.0-0.5); Bilirubin Total 0.3 mg/dL (0.0-1.0); Blood Urea Nitrogen 12 mg/dL (9-16); C Reactive Protein 0.26 mg/dL (< or = 0.50); Calcium 8.8 mg/dL (8.4-10.2); Carbon Dioxide 26 mmol/L (22-29); Chloride 107 mmol/L (96-108); Cholesterol 157 mg/dL (<200); Estimated Glomerular Filt Rate > 60; Glucose Fasting 105 mg/dL (60-99); HDL Cholesterol 49 mg/dL (>40); LDL Cholesterol Calculated 97 mg/dL (<100); Magnesium 2.1 mg/dL (1.6-2.6); Potassium 4.5 mmol/L (3.3-5.1); Sodium 140 mmol/L (135-145); Total Protein 6.8 g/dL (6.5-8.0); Triglycerides 58 mg/dL (<150)
[2025-01-24 11:40] LABS: HCG Quantitative < 2 mIU/mL; TSH reflex Free T4 1.07 uIU/mL (0.32-4.0); Vitamin D 25-OH Total 22.5 ng/mL (>30)
[2025-01-24 12:00] LABS: Folate 8.1 ng/mL (> or = 4.0); Vitamin B12 489 pg/mL (200-900)
[2025-02-04 00:33] LABS: Vitamin B1 13 nmol/L (8-30)
== END 2025-01-24 09:12 | disposition home or self-care (01) ==
LOC: HO.HMGCLDS 09:11
PROVIDERS: PCP Internal Medicine; Visit Provider Physician Assistant Medical
DX: Z00.00 Encounter for general adult medical examination without abnormal findings (principal); R10.30 Lower abdominal pain, unspecified
CPT/HCPCS: 36415; 80053; 80061; 80076; 81003; 82248; 82306; 82607; 82746; 83036; 83735; 84425; 84443; 84702; 85025; 86140

== ENCOUNTER 2025-02-03 10:14 | Outpatient (AMB) | payer OTHER, SELFPAY ==
--- NOTE | 2025-02-03 10:43 | MHC.PC.OV ---
Vital Signs 02/03/25 10:44 Height 5 ft 2 in Weight 255 lb BMI 46.6 BP 120/62 Blood Pressure Location Lt brachial Position Sitting Pulse 68 Pulse Source Pulse Oximeter Temp 97.8 F Temp Source Temporal Artery Scan Pulse Oximetry (%) 94 Oxygen Delivery Method Room Air Intake Visit Reasons: 2 Week F/U/BP Med Check Intake Note: Patient is here to follow up on Bp check. 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: No Assistant Branch Manager: Not Required per policy Accompanied by: Self / Same As Patient Allergies No Known Allergies Allergy (Verified 02/03/25 15:57) Medication List - Last Reconciled 02/03/25 by Yaneli Gutierrez PA-C cholecalciferol (vitamin D3) 1,250 mcg PO QWEEK 3 months gabapentin 100 mg PO TID 30 days ibuprofen 800 mg PO TID PRN lisinopril 10 mg PO DAILY norgestimate-ethinyl estradiol 0.18/0.215/0.25 mg-35 mcg (28) (Tri-Estarylla) 1 tab PO DAILY Tobacco use date assessed: 02/03/25 Dental Screening Dental Screen Date: 01/20/25 [facility] Medical History (Updated 02/03/25 @ 15:59 by Yaneli Gutierrez PA-C) Bilateral hand numbness Back pain with right-sided sciatica Follow-up exam, 3-6 months since previous exam Morbid obesity with BMI of 45.0-49.9, adult Lower abdominal pain Contact dermatitis Hypertension Surgical History Previous section Hx of cholecystectomy Hx of appendectomy Family History Mother Breast cancer Hypertension Sister Type 2 diabetes mellitus Father Myocardial infarction Brother Myocardial infarction, Onset Age: 40 Social History Household Members: Family Housing: Apartment Alcohol intake: current Alcohol intake frequency: holidays/special occasions only Patient Tobacco Use Status: Former Tobacco user Tobacco use type: Cigarette Cigarettes Per Day: 2 e-Cigarette/Vaping Use: Never Used Second Hand Smoke Exposure: Yes Substance Use Type: Marijuana service: No Current occupational status: employed Cognitive needs: No Hearing needs: No Vision needs: Yes (Glasses) Female Reproductive History Menstrual Age of Menarche: 15 Questionnaire Thrive Questionnaire Date Thrive assessed: 01/20/25 LEVI-7 AMB Questionnaire LEVI-7 Date LEVI - 7 assessed: 01/20/25 Source: Developed by Drs. Murphy Hall, Yolanda Dickinson, Duy Carlton and colleagues, with an educational aaliyah from [employer]. Physical exam (Primary Care) Vital Signs: Last Vital Signs Temp 97.8 F 02/03/25 10:44 Pulse 68 02/03/25 10:44 BP 120/62 02/03/25 10:44 Pulse Ox 94 02/03/25 10:44 Oxygen Delivery Method Room Air 02/03/25 10:44 BMI result Body Mass Index 46.6 Tobacco/Smoking Status: Tobacco use Status Tobacco use date assessed 02/03/25 02/03/25 10:47 Patient Tobacco Use Status Former Tobacco user 02/03/25 10:47 Tobacco use type Cigarette 02/03/25 10:47 e-Cigarette/Vaping Use Never Used 02/03/25 10:47 Thrive Assessment: Date of Thrive Assessment Date Thrive assessed 01/20/25 02/03/25 10:47 Coding Level of Care Code Est Pt Level 4 (23883) Complex EM visit Add On G2211 Diagnoses Cervicalgia M54.2 Back pain with right-sided sciatica M54.31 Morbid obesity with BMI of 45.0-49.9, adult E66.01; Z68.42 Hypertension I10 Vitamin D deficiency E55.9 Bilateral hand numbness R20.0 Assessment & Plan Assessment & Plan (1) Cervicalgia: Code(s): M54.2 - Cervicalgia Category: Medical Plan: Pt c likely muscular pain, but could be herniated disc. Neuro exam shows no deficits. Not c/w vascular etiology, perivertebral / other soft tissue neck / airway infection, or spinal fx / process. Will order outpatient imaging. Referral to ortho. DC c gabapentin 100 mg TID. Condition is stable will continue to monitor. (2) Back pain with right-sided sciatica: Code(s): M54.31 - Sciatica, right side Category: Medical Plan: Pt c likely muscular pain, but could be herniated disc. Neuro exam shows no deficits. Not c/w AAA/epidural abscess. Not c/w Pyelo/UTI/kidney stone/spinal fx. Not cauda equina syndrome. Will order outpatient imaging. Referral to ortho. MARY c gabapentin 100 mg TID. Condition is stable will continue to monitor. (3) Morbid obesity with BMI of 45.0-49.9, adult: Code(s): E66.01 - Morbid (severe) obesity due to excess calories; Z68.42 - Body mass index [BMI] 45.0-49.9, adult Category: Medical Plan: Patient to improve her diet and exercise regimen. Condition is chronic and stable continue to monitor. (4) Hypertension: Code(s): I10 - Essential (primary) hypertension Category: Medical Plan: Goal <130/80. Blood pressure at goal today. Patient to continue lisinopril 10 mg daily. Condition is chronic and stable continue to monitor (5) Vitamin D deficiency: Code(s): E55.9 - Vitamin D deficiency, unspecified Category: Medical Plan: Patient will be started on vitamin-D supplement 1250 mcg weekly. Condition is chronic and stable continue to monitor (6) Bilateral hand numbness: Code(s): R20.0 - Anesthesia of skin Category: Medical Plan: Most likely related to carpal tunnel syndrome or cervical radiculopathy. Explained to patient she should have imaging of her cervical spine. She should wear wrist brace at nighttime. And she should follow-up orthopedic. Condition is stable will continue to monitor. Plan Plan I will maintain the patient's Lisinopril at 10 mg daily, as the current regimen effectively controls the blood pressure. I have addressed the mildly elevated glucose and no current diabetes through routine monitoring. For the low vitamin D, I prescribed a weekly supplement. I suspect cervical radiculopathy, thus ordering a cervical spine CT and referring to orthopedics. For right-sided leg pain suggestive of sciatica, further lumbar imaging may be needed. Wrist braces for potential carpal tunnel syndrome should also be used to manage left-hand symptoms. Orders: Orders CT cervical spine wo IV con Today M54.2 - Cervicalgia, M54.31 - Sciatica, right side CT lumbar spine wo IV con Today M54.31 - Sciatica, right side Referrals Orthopedics Referral M54.2 - Cervicalgia, M54.31 - Sciatica, right side Medications: New cholecalciferol (vitamin D3) 1,250 mcg PO QWEEK 13 caps 0RF vit d deficiency 3 months gabapentin 100 mg PO TID 240 caps 1RF 30 days Patient Instructions: Patient Instructions - Continue to take Lisinopril 10 mg daily. - Begin weekly vitamin D supplementation as prescribed. - Schedule cervical spine CT and attend the Orthopedic referral. - Wear wrist braces at night to help alleviate arm numbness. - Monitor blood glucose levels, maintaining routine dietary habits. - Notify me if symptoms worsen or if new symptoms develop before the scheduled follow-up. Scribe Plan - Not visible on output: History of Present Illness The patient is a 39-year-old female presenting with numbness in the arms and pain in the right leg. The patient reports nocturnal episodes of numbness in the left hand over the last five nights without positional cause. The symptoms include difficulty in moving the arm initially upon waking, resolving after a few minutes. The arm symptoms might be linked to cervical radiculopathy, given the associated neck discomfort. The patient's prior history includes carpal tunnel surgery, though the current symptoms differ in presentation. The patient also reports occasional right leg pain, consistent with sciatica. Patient denies any dizziness, change in vision, weakness, trouble speaking, changes in voice, trouble concentrating, chest pain or shortness of breath, recent falls or trauma, rashes, joint swelling, extremity edema, discoloration or any other symptoms complaints or concerns related to this. For hypertension, the patient is on Lisinopril 10 mg, with the prescription recently increased from 5 mg. Blood pressure readings are optimal at 120/62 mmHg. Lab results reveal an elevated glucose level without diabetes, normal lipid profiles, and low vitamin D requiring supplementation. Thyroid function is normal, and the patient is not . Management included a recommendation for cervical spine imaging and an orthopedic consultation. Review of Systems - Neurological: Reports nocturnal numbness of the left hand although occasionally bilaterally. - Musculoskeletal: Reports pain in the right leg and lower back pain along with neck. - Integumentary/Breast: Denies lumps or masses in breast tissue. - Endocrine: Reports awareness of elevated glucose; denies diagnosis of diabetes. - Genitourinary: Denies current urinary issues. Physical Exam Appearance: Alert. Oriented X3. No acute distress. Head: Normal external exam. Normocephalic. Atraumatic. Eyes: Pupils are equal, round, and reactive to light. Extraocular movements intact. Conjunctiva and sclera normal. Eyelids normal. Ears: External auditory canal normal. Tympanic membranes normal. Throat: Pharynx normal. Uvula midline. Moist mucous membranes. Neck: Normal inspection. Neck supple. Full range of motion. No adenopathy. Thyroid Normal. No meningeal signs. No neck mass noted. Occasional neck pain reported. No step-offs or deformities are noted. No rashes are noted. No signs of infection noted. Cardiovascular: Normal heart rate and rhythm. Heart sound normal. No murmurs noted. Pulses normal throughout. Respiratory: No respiratory distress. Painless inspiration. Breath sounds normal. No wheezes/rales/rhonchi noted. Chest nontender. No accessory muscle usage noted or decreased air movement noted. Abdomen: Soft and nontender. Bowel sounds normal in all 4 quadrants. No distention noted. No organomegaly noted. No visible injury noted. Back: No costovertebral angle tenderness. Full range of motion noted. Reports back pain radiating to the right leg. No obvious deformities. Mild tenderness to the cervical spine. No step-offs or deformities are noted. Skin: Skin warm and dry. Normal skin color. Normal skin turgor. No rashes/lesions/lacerations noted. Extremities: No lower extremity edema. Extremities exhibit normal range of motion. Extremities nontender. Reports numbness in left arm and hand, especially at night. Neuro: Oriented X 3. No motor deficit. No sensory deficit. Reflexes normal. Reports numbness in left arm and hand, especially at night. No focal deficits noted at this time Results - Labs: - Normal lipid panel - Elevated glucose - Normal B12 - Normal thyroid function - Tests and Diagnostics: - Negative test - Urinalysis normal - Pending CT scan of the abdomen Plan I will maintain the patient's Lisinopril at 10 mg daily, as the current regimen effectively controls the blood pressure. I have addressed the mildly elevated glucose and no current diabetes through routine monitoring. For the low vitamin D, I prescribed a weekly supplement. I suspect cervical radiculopathy, thus ordering a cervical spine CT and referring to orthopedics. For right-sided leg pain suggestive of sciatica, further lumbar imaging may be needed. Wrist braces for potential carpal tunnel syndrome should also be used to manage left-hand and right hand symptoms. Patient was informed and verbally consented to the use of an ambient scribe for clinic note documentation during this visit. Discussion Notes During the visit, I discussed with the patient the likelihood of cervical radiculopathy and right-sided sciatica contributing to her current symptoms. The role of Lisinopril in managing hypertension was reinforced, alongside the need for regular follow-ups. We deliberated on the significance of mild blood glucose elevation while ruling out diabetes. Vitamin D deficiency management was explained with supplementation. The possible recurrence of carpal tunnel syndrome was addressed, recommending conservative brace treatment before proceeding with advanced interventions. I emphasized scheduling for the cervical CT, back imaging, and orthopedics referral to ensure comprehensive evaluation and appropriate management of symptoms. Follow-up appointments were recommended within 2-3 months to assess response and revise management if needed. Patient Instructions - Continue to take Lisinopril 10 mg daily. - Begin weekly vitamin D supplementation as prescribed. - Schedule cervical spine CT and attend the Orthopedic referral. - Wear wrist braces at night to help alleviate arm numbness. - Monitor blood glucose levels, maintaining routine dietary habits. - Notify me if symptoms worsen or if new symptoms develop before the scheduled follow-up.
[2025-02-03 10:44] VITALS: BP 120/62; PULSE 68; TEMP 36.6; O2SAT 94; BMI 46.6
--- OUTSIDE RECORDS SUMMARY | 2025-02-03 12:08 | XMS_ITS | Encounter Summary ---
Author Organization Lisa [facility] Address [address] [place] [address] Care Team Providers Care Desizing Pad Operator Name Role Phone Sesar Noble MD Primary Care Provider [phone] Reason for Visit * Reason Comments Abdominal Pain Dizziness SUDDEN ABD PAIN WHIL E AT WORK TODAY Encounter Details Date Type Department Care Team (Late st Contact Info) Description 01/22/2025 7:05 PM EST - 01/22/2025 10:34 PM EST Emergency [facility] Emergency [address] [place] [address] Generalized abdominal pain (Primary Dx); [...] for your loved ones. 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 [...] would like you to follow-up with your GIN POLE OPERATOR for ongoing evaluation if your pain persists. Call on Friday to schedule this outpatient follow-up. Follow up with your primary provider. Call tomorrow for appointment. Return to Emergency Department if symptoms worsen, do not improve, or any other concern. Get well soon! Thank you for coming to the [facility] Emergency Department today. Our entire team [...] to make arrangements to follow up. [facility] * Attachments The following attachments cannot be sent through Care Everywhere. * Pelvic Pain (Turkish) documented in this encounter Medications at Time [...] URINALYSIS WITH REFLEX MICROSCOPIC - Normal Specific [place] Urine 1.011 pH, Urine 7.0 Leukocytes, Urine Negative Nitrite, Urine Negative Protein, Urine Negative Glucose, Urine Negative Ketones, Urine Negative Urobilinogen, Urine 0.2 Bilirubin, Urine Negative Blood, Urine Negative CBC AND DIFFERENTIAL Narrative: The following orders were created for panel order CBC and differential. Procedure Abnormality Status --------- ------ CBC auto differential[[id number]] Abnormal Final result Please view results for these tests on the individual orders. URINALYSIS WITH REFLEX MICROSCOPIC Narrative: The following orders were created for panel order Urinalysis with reflex microscopic. Procedure Abnormality Status --------- ------ Urinalysis with reflex ...[[id number]] Normal Final result Please view results for [...] Procedure Name Priority Date/Time Associated Diagnosis Comments ECG ANNOTATED 01/24/2025 US PELVIS NON OB COMPLETE W TRANSVAGINAL [...] EST documented in this encounter Results * ECG-Annotated (01/24/2025) us Provider Onbase MD ECG ORDERABLES Final Result * US Pelvis Non OB Complete w [...] Pride MD on 01/22/2025 21:58:27 us Sheela ANDEROSN IMG US PROCEDURES Final Re sult * ECG 12 lead (01/22/2025 4:52 PM EST) Ventricular Rate ECG 48 BPM GEMUSE Atrial Rate 48 BPM GEMUSE P-R Interval 164 ms GEMUSE QRS Duration 106 ms GEMUSE Q-T Interval 484 ms GEMUSE QTc 432 ms GEMUSE P Wave [place] 17 degrees GEMUSE R [place] 79 degrees GEMUSE T [place] 48 degrees GEMUSE ECG Interpretation Sinus bradycardia [...] reflex microscopic (01/22/2025 1:51 PM EST) Specific [place] Urine 1.011 1.003 - 1.030 LAB URINALYSIS - AUTOMATED METHOD 01/22/2025 2:02 PM [facility] pH, Urine 7.0 5.0 - 8.0 pH LAB URINALYSIS - AUTOMATED METHOD 01/22/2025 2:02 PM [facility] Leukocytes, Urine Negative Negative LAB URINALYSIS - AUTOMATED METHOD 01/22/2025 2:02 PM [facility] Nitrite, Urine Negative Negative LAB URINALYSIS - AUTOMATED METHOD 01/22/2025 2:02 PM [facility] Protein, Urine Negative <=Trace mg/dL LAB URINALYSIS - AUTOMATED METHOD 01/22/2025 2:02 PM [facility] Glucose, Urine Negative Negative mg/dL LAB URINALYSIS - AUTOMATED METHOD 01/22/2025 2:02 PM [facility] Ketones, Urine Negative Negative mg/dL LAB URINALYSIS - AUTOMATED METHOD 01/22/2025 2:02 PM [facility] Urobilinogen, Urine 0.2 0.2 - 1.0 mg/dL LAB URINALYSIS - AUTOMATED METHOD 01/22/2025 2:02 PM [facility] Bilirubin, Urine Negative Negative LAB URINALYSIS - AUTOMATED METHOD 01/22/2025 2:02 PM [facility] Blood, Urine Negative Negative LAB URINALYSIS - AUTOMATED METHOD 01/22/2025 2:02 PM [facility] Urine Urine specimen obtained by clean catch procedure / Unknown Non-blood Collection / Unknown 01/22/2025 1:51 PM EST 01/22/2025 1:58 PM EST us Phan Moran MD LAB URINE ORDERABLES Final Result [facility] [address] [place] [address], * (ABNORMAL) CBC auto differential (01/22/2025 1:48 PM EST) WBC 7.2 4.8 - 10.8 K/mcL LAB HEMETOLOGY METHOD 01/22/2025 2:03 PM [facility] RBC 4.20 3.80 - 4.80 M/mcL LAB HEMETOLOGY METHOD 01/22/2025 2:03 PM [facility] Hemoglobin 12.1 11.5 - 16.0 g/dL LAB HEMETOLOGY METHOD 01/22/2025 2:03 PM [facility] Hematocrit 38.2 35.0 - 47.0 % LAB HEMETOLOGY METHOD 01/22/2025 2:03 PM [facility] MCV 91.4 79.0 - 98.0 FL LAB HEMETOLOGY METHOD 01/22/2025 2:03 PM [facility] MCH 28.9 27.0 - 32.0 pcg LAB HEMETOLOGY METHOD 01/22/2025 2:03 PM [facility] MCHC 31.7(L) 32.0 - 37.0 g/dL LAB HEMETOLOGY METHOD 01/22/2025 2:03 PM [facility] RDW 14.2 11.0 - 15.0 % LAB HEMETOLOGY METHOD 01/22/2025 2:03 PM [facility] Platelets 265 130 - 400 K/mcL LAB HEMETOLOGY METHOD 01/22/2025 2:03 PM [facility] MPV 9.9 7.0 - 11.0 FL LAB HEMETOLOGY METHOD 01/22/2025 2:03 PM [facility] NRBC 0.0 <1.0 % LAB HEMETOLOGY METHOD 01/22/2025 2:03 PM [facility] NRBC Absolute 0.00 <0.10 K/mcL LAB HEMETOLOGY METHOD 01/22/2025 2:03 PM [facility] Neutrophils Relative 64.0 % LAB HEMETOLOGY METHOD 01/22/2025 2:03 PM [facility] Lymphocytes Relative 22.5 % LAB HEMETOLOGY METHOD 01/22/2025 2:03 PM [facility] Monocytes Relative 8.1 % LAB HEMETOLOGY METHOD 01/22/2025 2:03 PM [facility] Eosinophils Relative 4.4 % LAB HEMETOLOGY METHOD 01/22/2025 2:03 PM [facility] Basophils Relative 0.6 % LAB HEMETOLOGY METHOD 01/22/2025 2:03 PM [facility] Immature Granulocytes Relative 0.4 % LAB HEMETOLOGY METHOD 01/22/2025 2:03 PM [facility] Neutrophils Absolute 4.63 1.50 - 7.00 K/mcL LAB HEMETOLOGY METHOD 01/22/2025 2:03 PM [facility] Lymphocytes Absolute 1.63 1.00 - 5.00 K/mcL LAB HEMETOLOGY METHOD 01/22/2025 2:03 PM [facility] Monocytes Absolute 0.59 0.20 - 1.00 K/mcL LAB HEMETOLOGY METHOD 01/22/2025 2:03 PM [facility] Eosinophils Absolute 0.32 0.00 - 0.50 K/mcL LAB HEMETOLOGY METHOD 01/22/2025 2:03 PM [facility] Basophils Absolute 0.04 0.00 - 0.20 K/mcL LAB HEMETOLOGY METHOD 01/22/2025 2:03 PM [facility] Immature Granulocytes Absolute 0.03 0.00 - 0.03 K/mcL LAB HEMETOLOGY METHOD 01/22/2025 2:03 PM EST [facility] Blood Venous blood specimen / Unknown Venipuncture / Unknown 01/22/2025 1:48 PM EST 01/22/2025 1:58 PM EST Phan Moran MD LAB BLOOD ORDERABLES Final Result Performing Organization Address City/[facility]/ZIP Co de Phone Number [facility] [address] [place] [address], [place] [phone] * Lipase (01/22/2025 1:48 PM EST) Pathologist [facility] Lipase 33 13 - 75 unit/L LAB CHEMISTRY METHOD 01/22/2025 2:30 PM EST [facility] Blood Venous blood specimen / Unknown Venipuncture / Unknown 01/22/2025 1:48 PM EST 01/22/2025 1:58 PM EST Phan Moran MD LAB BLOOD ORDERABLES Final Result Performing Organization Address [facility] de Phone Number [facility] [address] [place] [address], [place] [phone] * Comprehensive metabolic panel (01/22/2025 1:48 PM EST) Pathologist [facility] Sodium 138 133 - 145 mmol/L LAB CHEMISTRY METHOD 01/22/2025 2:30 PM EST [facility] Potassium 4.1 3.5 - 5.5 mmol/L LAB CHEMISTRY METHOD 01/22/2025 2:30 PM EST [facility] Chloride 105 96 - 110 mmol/L LAB CHEMISTRY METHOD 01/22/2025 2:30 PM EST [facility] CO2 25 21 - 32 mmol/L LAB CHEMISTRY METHOD 01/22/2025 2:30 PM EST [facility] Anion Gap 8 3 - 11 LAB CHEMISTRY METHOD 01/22/2025 2:30 PM [facility] Glucose 92 70 - 100 mg/dL LAB CHEMISTRY METHOD 01/22/2025 2:30 PM [facility] BUN 11 5 - 25 mg/dL LAB CHEMISTRY METHOD 01/22/2025 2:30 PM [facility] Creatinine 0.54 0.50 - 1.10 mg/dL LAB CHEMISTRY METHOD 01/22/2025 2:30 PM [facility] eGFR 121 >=60 mL/min/1. 73m2 LAB CHEMISTRY METHOD 01/22/2025 2:30 PM [facility] Comment:Calculation based on the??Chronic Kidney Disease Epidemiology Collaboration (CKD-EPI) equation refit??without adjustment for race. BUN/Creatinine Ratio 20.4 LAB CHEMISTRY METHOD 01/22/2025 2:30 PM [facility] Calcium 8.9 8.5 - 10.5 mg/dL LAB CHEMISTRY METHOD 01/22/2025 2:30 PM [facility] AST (SGOT) 28 10 - 42 unit/L LAB CHEMISTRY METHOD 01/22/2025 2:30 PM [facility] ALT (SGPT) 43 10 - 60 unit/L LAB CHEMISTRY METHOD 01/22/2025 2:30 PM [facility] Alkaline Phosphatase 72 42 - 121 unit/L LAB CHEMISTRY METHOD 01/22/2025 2:30 PM [facility] Total Protein 6.9 6.0 - 8.0 g/dL LAB CHEMISTRY METHOD 01/22/2025 2:30 PM [facility] Albumin 3.6 3.2 - 5.0 g/dL LAB CHEMISTRY METHOD 01/22/2025 2:30 PM [facility] Total Bilirubin 0.5 0.0 - 1.4 mg/dL LAB CHEMISTRY METHOD 01/22/2025 2:30 PM [facility] Blood Venous blood specimen / Unknown Venipuncture / Unknown 01/22/2025 1:48 PM EST 01/22/2025 1:58 PM EST us Phan Moran MD LAB BLOOD ORDERABLES Final Result [facility] [address] [place] [address], documented in this encounter Visit Diagnoses Diagnosis [...] 2015 (New Bag - Prov ider: Emma Zuniga RN)[id number] (Stopped - Provider: Emma Zuniga RN) documented in this encounter Care Teams Desizing Pad Operator Relationship Specialty Start Date End Date Sesar Noble MD [address] [place] [address] PCP - General Internal Medicine 01/22/25 documented as of this encounter
--- OUTSIDE RECORDS SUMMARY | 2025-02-03 12:08 | XMS_ITS | Clinical Summary ---
Author Organization [facility] Address [address] [place] [address] Phone Care Team Providers Care Catalyst Manufacturing Operator Name Role Phone Sesar Noble MD Primary Care Provider [phone]- [phone] Allergies No known active allergies Medications lisinopriL (PRINIVIL,ZESTR IL) 5 mg tablet Take 1 tablet (5 mg total) by mouth 1 (one) time each day. Active norgestimate-et hinyl estradioL (Tri-Estarylla) 0.18/0.215/0.25 mg-35 mcg (28) per tablet Take 1 tablet by mouth 1 (one) time each day. 02/22/2013 Active naproxen (NAPROSYN) 500 mg tablet Take 1 tablet (500 mg total) by mouth 2 (two) times a day with meals for 10 days. 20 tablet 01/22/2025 5 Active Problems No known active problems Encounters Date Type Department Care Team Description 01/22/2025 7:05 PM EST - 01/22/2025 10:34 PM EST Emergency [facility] Emergency [address] [place] [address] Generalized abdominal pain (Primary Dx); Pelvic pain Discharge Disposition: Home or Self Care from [...] for your loved ones. For example, child neurologist or elderly care for an older adult? [...] AND DIFFERENTIAL STAT 01/22/2025 1:48 PM EST from Last 3 Months Results * ECG-Annotated (01/24/2025) us Provider Onbase [...] Pride MD on 01/22/2025 21:58:27 us Sheela Jones'Gabriel ANDERSON IMG US PROCEDURES Final Re sult * ECG 12 lead (01/22/2025 4:52 PM EST) Ventricular Rate ECG 48 BPM GEMUSE Atrial Rate 48 BPM GEMUSE P-R Interval 164 ms GEMUSE QRS Duration 106 ms GEMUSE Q-T Interval 484 ms GEMUSE QTc 432 ms GEMUSE P Wave [place] 17 degrees GEMUSE R [place] 79 degrees GEMUSE T [place] 48 degrees GEMUSE ECG Interpretation Sinus bradycardia [...] reflex microscopic (01/22/2025 1:51 PM EST) Specific [place] Urine 1.011 1.003 - 1.030 LAB URINALYSIS - AUTOMATED METHOD 01/22/2025 2:02 PM [facility] pH, Urine 7.0 5.0 - 8.0 pH LAB URINALYSIS - AUTOMATED METHOD 01/22/2025 2:02 PM [facility] Leukocytes, Urine Negative Negative LAB URINALYSIS - AUTOMATED METHOD 01/22/2025 2:02 PM [facility] Nitrite, Urine Negative Negative LAB URINALYSIS - AUTOMATED METHOD 01/22/2025 2:02 PM [facility] Protein, Urine Negative <=Trace mg/dL LAB URINALYSIS - AUTOMATED METHOD 01/22/2025 2:02 PM [facility] Glucose, Urine Negative Negative mg/dL LAB URINALYSIS - AUTOMATED METHOD 01/22/2025 2:02 PM [facility] Ketones, Urine Negative Negative mg/dL LAB URINALYSIS - AUTOMATED METHOD 01/22/2025 2:02 PM [facility] Urobilinogen, Urine 0.2 0.2 - 1.0 mg/dL LAB URINALYSIS - AUTOMATED METHOD 01/22/2025 2:02 PM [facility] Bilirubin, Urine Negative Negative LAB URINALYSIS - AUTOMATED METHOD 01/22/2025 2:02 PM [facility] Blood, Urine Negative Negative LAB URINALYSIS - AUTOMATED METHOD 01/22/2025 2:02 PM [facility] Urine Urine specimen obtained by clean catch procedure / Unknown Non-blood Collection / Unknown 01/22/2025 1:51 PM EST 01/22/2025 1:58 PM EST us Phan Moran MD LAB URINE ORDERABLES Final Result [facility] [address] [place] [address], [place] [phone] * (ABNORMAL) CBC auto differential (01/22/2025 1:48 PM EST) WBC 7.2 4.8 - 10.8 K/mcL LAB HEMETOLOGY METHOD 01/22/2025 2:03 PM [facility] RBC 4.20 3.80 - 4.80 M/mcL LAB HEMETOLOGY METHOD 01/22/2025 2:03 PM [facility] Hemoglobin 12.1 11.5 - 16.0 g/dL LAB HEMETOLOGY METHOD 01/22/2025 2:03 PM [facility] Hematocrit 38.2 35.0 - 47.0 % LAB HEMETOLOGY METHOD 01/22/2025 2:03 PM [facility] MCV 91.4 79.0 - 98.0 FL LAB HEMETOLOGY METHOD 01/22/2025 2:03 PM [facility] MCH 28.9 27.0 - 32.0 pcg LAB HEMETOLOGY METHOD 01/22/2025 2:03 PM [facility] MCHC 31.7(L) 32.0 - 37.0 g/dL LAB HEMETOLOGY METHOD 01/22/2025 2:03 PM [facility] RDW 14.2 11.0 - 15.0 % LAB HEMETOLOGY METHOD 01/22/2025 2:03 PM [facility] Platelets 265 130 - 400 K/mcL LAB HEMETOLOGY METHOD 01/22/2025 2:03 PM [facility] MPV 9.9 7.0 - 11.0 FL LAB HEMETOLOGY METHOD 01/22/2025 2:03 PM [facility] NRBC 0.0 <1.0 % LAB HEMETOLOGY METHOD 01/22/2025 2:03 PM [facility] NRBC Absolute 0.00 <0.10 K/mcL LAB HEMETOLOGY METHOD 01/22/2025 2:03 PM [facility] Neutrophils Relative 64.0 % LAB HEMETOLOGY METHOD 01/22/2025 2:03 PM [facility] Lymphocytes Relative 22.5 % LAB HEMETOLOGY METHOD 01/22/2025 2:03 PM [facility] Monocytes Relative 8.1 % LAB HEMETOLOGY METHOD 01/22/2025 2:03 PM [facility] Eosinophils Relative 4.4 % LAB HEMETOLOGY METHOD 01/22/2025 2:03 PM [facility] Basophils Relative 0.6 % LAB HEMETOLOGY METHOD 01/22/2025 2:03 PM [facility] Immature Granulocytes Relative 0.4 % LAB HEMETOLOGY METHOD 01/22/2025 2:03 PM [facility] Neutrophils Absolute 4.63 1.50 - 7.00 K/mcL LAB HEMETOLOGY METHOD 01/22/2025 2:03 PM [facility] Lymphocytes Absolute 1.63 1.00 - 5.00 K/mcL LAB HEMETOLOGY METHOD 01/22/2025 2:03 PM EST [facility] Monocytes Absolute 0.59 0.20 - 1.00 K/mcL LAB HEMETOLOGY METHOD 01/22/2025 2:03 PM EST [facility] Eosinophils Absolute 0.32 0.00 - 0.50 K/mcL LAB HEMETOLOGY METHOD 01/22/2025 2:03 PM EST [facility] Basophils Absolute 0.04 0.00 - 0.20 K/mcL LAB HEMETOLOGY METHOD 01/22/2025 2:03 PM EST [facility] Immature Granulocytes Absolute 0.03 0.00 - 0.03 K/mcL LAB HEMETOLOGY METHOD 01/22/2025 2:03 PM EST [facility] Blood Venous blood specimen / Unknown Venipuncture / Unknown 01/22/2025 1:48 PM EST 01/22/2025 1:58 PM EST Phan Moran MD LAB BLOOD ORDERABLES Final Result [facility] [address] [place] [address], [place] [phone] * Lipase (01/22/2025 1:48 PM EST) [facility] Lipase 33 13 - 75 unit/L LAB CHEMISTRY METHOD 01/22/2025 2:30 PM EST [facility] Blood Venous blood specimen / Unknown Venipuncture / Unknown 01/22/2025 1:48 PM EST 01/22/2025 1:58 PM EST Phan Moran MD LAB BLOOD ORDERABLES Final Result Performing Organization Address City/[facility]/ZIP Co de Phone Number [facility] [address] [place] [address], [place] [phone] * Comprehensive metabolic panel (01/22/2025 1:48 PM EST) Sodium 138 133 - 145 mmol/L LAB CHEMISTRY METHOD 01/22/2025 2:30 PM [facility] Potassium 4.1 3.5 - 5.5 mmol/L LAB CHEMISTRY METHOD 01/22/2025 2:30 PM [facility] Chloride 105 96 - 110 mmol/L LAB CHEMISTRY METHOD 01/22/2025 2:30 PM [facility] CO2 25 21 - 32 mmol/L LAB CHEMISTRY METHOD 01/22/2025 2:30 PM [facility] Anion Gap 8 3 - 11 LAB CHEMISTRY METHOD 01/22/2025 2:30 PM [facility] Glucose 92 70 - 100 mg/dL LAB CHEMISTRY METHOD 01/22/2025 2:30 PM [facility] BUN 11 5 - 25 mg/dL LAB CHEMISTRY METHOD 01/22/2025 2:30 PM [facility] Creatinine 0.54 0.50 - 1.10 mg/dL LAB CHEMISTRY METHOD 01/22/2025 2:30 PM [facility] eGFR 121 >=60 mL/min/1. 73m2 LAB CHEMISTRY METHOD 01/22/2025 2:30 PM [facility] Comment:Calculation based on the??Chronic Kidney Disease Epidemiology Collaboration (CKD-EPI) equation refit??without adjustment for race. BUN/Creatinine Ratio 20.4 LAB CHEMISTRY METHOD 01/22/2025 2:30 PM [facility] Calcium 8.9 8.5 - 10.5 mg/dL LAB CHEMISTRY METHOD 01/22/2025 2:30 PM [facility] AST (SGOT) 28 10 - 42 unit/L LAB CHEMISTRY METHOD 01/22/2025 2:30 PM [facility] ALT (SGPT) 43 10 - 60 unit/L LAB CHEMISTRY METHOD 01/22/2025 2:30 PM [facility] Alkaline Phosphatase 72 42 - 121 unit/L LAB CHEMISTRY METHOD 01/22/2025 2:30 PM EST [facility] Total Protein 6.9 6.0 - 8.0 g/dL LAB CHEMISTRY METHOD 01/22/2025 2:30 PM EST [facility] Albumin 3.6 3.2 - 5.0 g/dL LAB CHEMISTRY METHOD 01/22/2025 2:30 PM EST [facility] Total Bilirubin 0.5 0.0 - 1.4 mg/dL LAB CHEMISTRY METHOD 01/22/2025 2:30 PM EST [facility] Blood Venous blood specimen / Unknown Venipuncture / Unknown 01/22/2025 1:48 PM EST 01/22/2025 1:58 PM EST us Phan Moran MD LAB BLOOD ORDERABLES Final Result [facility] [address] [place] [address], from Last 3 Months Insurance [employer] Advance Directives * Full Code - [...] currently active code status orders. Care Teams Catalyst Manufacturing Operator Relationship Specialty Start Date End Date Sesar Noble MD [place] [address] [place] [address] PCP - General Internal Medicine 01/22/25
== END 2025-02-03 11:02 | disposition home or self-care (01) ==
PROVIDERS: PCP Internal Medicine; Visit Provider Physician Assistant Medical
DX: M54.2 Cervicalgia (principal); M54.31 Sciatica, right side; E66.01 Morbid (severe) obesity due to excess calories; Z68.42 Body mass index [BMI] 45.0-49.9, adult; I10 Essential (primary) hypertension; E55.9 Vitamin D deficiency, unspecified; R20.0 Anesthesia of skin

== ENCOUNTER → 2025-02-03 10:14 | Outpatient (BNVA) | payer OTHER, SELFPAY | PROVIDERS: PCP Internal Medicine; Visit Provider Physician Assistant Medical | DX: M54.2 Cervicalgia (principal); M54.31 Sciatica, right side; E66.01 Morbid (severe) obesity due to excess calories; Z68.42 Body mass index [BMI] 45.0-49.9, adult; I10 Essential (primary) hypertension; R20.0 Anesthesia of skin; E55.9 Vitamin D deficiency, unspecified; Z71.3 Dietary counseling and surveillance | CPT/HCPCS: 99212 ==

== ENCOUNTER 2025-03-10 08:38 | Outpatient (REF) | payer OTHER, SELFPAY ==
--- NOTE | ~2025-03-10 | CT_ITS ---
CLINICAL HISTORY: R10.30 - Lower abdominal pain, unspecified CT abdomen and pelvis with contrast Comparison: US/SR - US ABDOMEN COMPLETE - 07/27/24 10:43 EDT US/SR - US PELVIC AND TRANSVAGINAL - 07/27/24 10:36 EDT Findings: The visualized portions of the lungs are normal in appearance. The liver is normal in size without suspicious focal hepatic lesions. No intrahepatic or extrahepatic ductal dilatation is seen. The hepatic and portal veins are patent. Cholecystectomy. Pancreas, spleen and adrenals are normal in appearance. No suspicious focal lesion of the kidneys. Small hypodensities of the kidneys are too small to characterize statistically representing cysts. No hydronephrosis or calculi. The abdominal aorta demonstrates no evidence of aneurysmal dilatation or dissection. The colon is normal in appearance and without wall thickening or inflammatory change. No evidence of bowel obstruction. Appendicectomy. The pelvic organs are within normal limits. No intraperitoneal free air or fluid is visualized. No pathologic lymphadenopathy is seen. Small fat containing umbilical hernia. There are no osseous or soft tissue abnormalities. IMPRESSION: No acute findings. This document has been electronically signed by: Kat Ferrari MD on 03/10/2025 14:32:59
--- OUTSIDE RECORDS SUMMARY | 2025-03-10 08:55 | XMS_ITS | Clinical Summary ---
Author Organization [facility] Address [address] [place] [address] Phone Care Team Providers Care Mig Welder Name Role Phone Sesar Noble MD Primary Care Provider +1- [phone] Allergies No known active allergies Medications lisinopriL [...] EST - 01/22/2025 10:34 PM EST Emergency [facility] Emergency [address] [place] [address] Generalized abdominal pain (Primary Dx); [...] for your loved ones. For example, child support specialist or elderly care for an older adult? [...] age to complete this topic Meningococcal B Vaccine Aged Out No l onger eligible based on patient's age to complete [...] Results * ECG-Annotated (01/24/2025) us Provider Onbase ECG ORDERABLES Final Result * US Pelvis Non OB Complete w Transvaginal (01/22/2025 8:59 PM EST) Anatomical Region Laterality Modality Body, Pelvis Ultrasound 01/22/2025 9:5 8 PM EST Impressions 01/22/2025 9:58 PM EST [...] GEMUSE QTc 432 ms GEMUSE P Wave [place] 17 degrees GEMUSE R [place] 79 degrees GEMUSE T [place] 48 degrees GEMUSE ECG Interpretation Sinus bradycardia [...] reflex microscopic (01/22/2025 1:51 PM EST) Specific [place] Urine 1.011 1.003 - 1.030 LAB URINALYSIS - AUTOMATED METHOD 01/22/2025 2:02 PM [facility] pH, Urine 7.0 5.0 - 8.0 pH LAB URINALYSIS - AUTOMATED METHOD 01/22/2025 2:02 PM [facility] Leukocytes, Urine Negative Negative LAB URINALYSIS - AUTOMATED METHOD 01/22/2025 2:02 PM [facility] Nitrite, Urine Negative Negative LAB URINALYSIS - AUTOMATED METHOD 01/22/2025 2:02 PM [facility] Protein, Urine Negative <=Trace mg/dL LAB URINALYSIS - AUTOMATED METHOD 01/22/2025 2:02 PM [facility] Glucose, Urine Negative Negative mg/dL LAB URINALYSIS - AUTOMATED METHOD 01/22/2025 2:02 PM [facility] Ketones, Urine Negative Negative mg/dL LAB URINALYSIS - AUTOMATED METHOD 01/22/2025 2:02 PM [facility] Urobilinogen, Urine 0.2 0.2 - 1.0 mg/dL LAB URINALYSIS - AUTOMATED METHOD 01/22/2025 2:02 PM [facility] Bilirubin, Urine Negative Negative LAB URINALYSIS - AUTOMATED METHOD 01/22/2025 2:02 PM [facility] Blood, Urine Negative Negative LAB URINALYSIS - AUTOMATED METHOD 01/22/2025 2:02 PM [facility] Urine Urine specimen obtained by clean catch procedure / Unknown Non-blood Collection / Unknown 01/22/2025 1:51 PM EST 01/22/2025 1:58 PM EST us Phan Moran MD LAB URINE ORDERABLES Final Result [facility] [address] [place] [address], [place] [phone] * (ABNORMAL) CBC auto differential (01/22/2025 1:48 PM EST) WBC 7.2 4.8 - 10.8 K/mcL LAB HEMETOLOGY METHOD 01/22/2025 2:03 PM [facility] RBC 4.20 3.80 - 4.80 M/mcL LAB HEMETOLOGY METHOD 01/22/2025 2:03 PM [facility] Hemoglobin 12.1 11.5 - 16.0 g/dL LAB HEMETOLOGY METHOD 01/22/2025 2:03 PM [facility] Hematocrit 38.2 35.0 - 47.0 % LAB HEMETOLOGY METHOD 01/22/2025 2:03 PM [facility] MCV 91.4 79.0 - 98.0 FL LAB HEMETOLOGY METHOD 01/22/2025 2:03 PM [facility] MCH 28.9 27.0 - 32.0 pcg LAB HEMETOLOGY METHOD 01/22/2025 2:03 PM [facility] MCHC 31.7(L) 32.0 - 37.0 g/dL LAB HEMETOLOGY METHOD 01/22/2025 2:03 PM [facility] RDW 14.2 11.0 - 15.0 % LAB HEMETOLOGY METHOD 01/22/2025 2:03 PM [facility] Platelets 265 130 - 400 K/mcL LAB HEMETOLOGY METHOD 01/22/2025 2:03 PM [facility] MPV 9.9 7.0 - 11.0 FL LAB HEMETOLOGY METHOD 01/22/2025 2:03 PM [facility] NRBC 0.0 <1.0 % LAB HEMETOLOGY METHOD 01/22/2025 2:03 PM [facility] NRBC Absolute 0.00 <0.10 K/mcL LAB HEMETOLOGY METHOD 01/22/2025 2:03 PM [facility] Neutrophils Relative 64.0 % LAB HEMETOLOGY METHOD 01/22/2025 2:03 PM [facility] Lymphocytes Relative 22.5 % LAB HEMETOLOGY METHOD 01/22/2025 2:03 PM [facility] Monocytes Relative 8.1 % LAB HEMETOLOGY METHOD 01/22/2025 2:03 PM [facility] Eosinophils Relative 4.4 % LAB HEMETOLOGY METHOD 01/22/2025 2:03 PM [facility] Basophils Relative 0.6 % LAB HEMETOLOGY METHOD 01/22/2025 2:03 PM [facility] Immature Granulocytes Relative 0.4 % LAB HEMETOLOGY METHOD 01/22/2025 2:03 PM [facility] Neutrophils Absolute 4.63 1.50 - 7.00 K/mcL LAB HEMETOLOGY METHOD 01/22/2025 2:03 PM [facility] Lymphocytes Absolute 1.63 1.00 - 5.00 K/mcL LAB HEMETOLOGY METHOD 01/22/2025 2:03 PM [facility] Monocytes Absolute 0.59 0.20 - 1.00 K/mcL LAB HEMETOLOGY METHOD 01/22/2025 2:03 PM [facility] Eosinophils Absolute 0.32 0.00 - 0.50 K/[facility] LAB HEMETOLOGY METHOD 01/22/2025 2:03 PM EST [facility] Basophils Absolute 0.04 0.00 - 0.20 K/[facility] LAB HEMETOLOGY METHOD 01/22/2025 2:03 PM EST [facility] Immature Granulocytes Absolute 0.03 0.00 - 0.03 K/[facility] LAB HEMETOLOGY METHOD 01/22/2025 2:03 PM EST [facility] Blood Venous blood specimen / Unknown Venipuncture / Unknown 01/22/2025 1:48 PM EST 01/22/2025 1:58 PM EST Phan Moran MD LAB BLOOD ORDERABLES Final Result Performing Organization Address [facility]/ZIP Co de Phone Number [facility] [address] [place] [address], [place] [phone] * Lipase (01/22/2025 1:48 PM EST) Lipase 33 13 - 75 unit/L LAB CHEMISTRY METHOD 01/22/2025 2:30 PM EST [facility] Blood Venous blood specimen / Unknown Venipuncture / Unknown 01/22/2025 1:48 PM EST 01/22/2025 1:58 PM EST Phan Moran MD LAB BLOOD ORDERABLES Final Result [facility] [address] [place] [address], [place] [phone] * Comprehensive metabolic panel (01/22/2025 1:48 PM EST) Sodium 138 133 - 145 mmol/L LAB CHEMISTRY METHOD 01/22/2025 2:30 PM EST [facility] Potassium 4.1 3.5 - 5.5 mmol/L LAB CHEMISTRY METHOD 01/22/2025 2:30 PM [facility] Chloride 105 96 - 110 mmol/L LAB CHEMISTRY METHOD 01/22/2025 2:30 PM [facility] CO2 25 21 - 32 mmol/L LAB CHEMISTRY METHOD 01/22/2025 2:30 PM [facility] Anion Gap 8 3 - 11 LAB CHEMISTRY METHOD 01/22/2025 2:30 PM [facility] Glucose 92 70 - 100 mg/dL LAB CHEMISTRY METHOD 01/22/2025 2:30 PM [facility] BUN 11 5 - 25 mg/dL LAB CHEMISTRY METHOD 01/22/2025 2:30 PM [facility] Creatinine 0.54 0.50 - 1.10 mg/dL LAB CHEMISTRY METHOD 01/22/2025 2:30 PM [facility] eGFR 121 >=60 mL/min/1. 73m2 LAB CHEMISTRY METHOD 01/22/2025 2:30 PM [facility] Comment:Calculation based on the??Chronic Kidney Disease Epidemiology Collaboration (CKD-EPI) equation refit??without adjustment for race. BUN/Creatinine Ratio 20.4 LAB CHEMISTRY METHOD 01/22/2025 2:30 PM [facility] Calcium 8.9 8.5 - 10.5 mg/dL LAB CHEMISTRY METHOD 01/22/2025 2:30 PM [facility] AST (SGOT) 28 10 - 42 unit/L LAB CHEMISTRY METHOD 01/22/2025 2:30 PM [facility] ALT (SGPT) 43 10 - 60 unit/L LAB CHEMISTRY METHOD 01/22/2025 2:30 PM [facility] Alkaline Phosphatase 72 42 - 121 unit/L LAB CHEMISTRY METHOD 01/22/2025 2:30 PM [facility] Total Protein 6.9 6.0 - 8.0 g/dL LAB CHEMISTRY METHOD 01/22/2025 2:30 PM EST [facility] Albumin 3.6 3.2 - 5.0 g/dL LAB CHEMISTRY METHOD 01/22/2025 2:30 PM EST [facility] Total Bilirubin 0.5 0.0 - 1.4 mg/dL LAB CHEMISTRY METHOD 01/22/2025 2:30 PM EST [facility] Blood Venous blood specimen / Unknown Venipuncture / Unknown 01/22/2025 1:48 PM EST 01/22/2025 1:58 PM EST us Phan Moran MD LAB BLOOD ORDERABLES Final Result [facility] [address] [place] [address], [place] [phone] from Last 3 Months Insurance [facility] Advance Directives * Full Code - Default [...] currently active code status orders. Care Teams Mig Welder Relationship Specialty Start Date End Date Sesar Noble MD [facility] [address] [place] [address] PCP - General Internal Medicine 01/22/25
[2025-03-10] MEDS: iohexoL 350 MG/ML 75 ML INFUS..BTL 85 ML IV (11:20)
[2025-03-10] MEDS: Barium Sulfate Oral (Mocha) 450 ML ORAL.SUSP 900 ML PO (11:20)
== END 2025-03-10 08:39 | disposition home or self-care (01) ==
LOC: HO.CT 08:38
PROVIDERS: PCP Internal Medicine; Visit Provider Physician Assistant Medical
DX: R10.30 Lower abdominal pain, unspecified (principal)
CPT/HCPCS: 74177; Q9967

== ENCOUNTER → 2025-03-10 08:41 | Outpatient (BNV) | payer OTHER, SELFPAY | PROVIDERS: PCP Internal Medicine; Visit Provider Nuclear Medicine | DX: R10.30 Lower abdominal pain, unspecified (principal) | CPT/HCPCS: 74177 ==

== ENCOUNTER 2025-05-13 10:22 | Outpatient (REF) | payer OTHER, SELFPAY ==
--- NOTE | ~2025-05-13 | XR_ITS ---
EXAMINATION: XR HIP, RIGHT CLINICAL INFORMATION: M25.551 - Pain in right hip COMPARISON: None available. TECHNIQUE: Two views of the right hip. FINDINGS: No acute cortical disruption or malalignment. No lytic or blastic lesion. Normal joint space, right coxofemoral joint. XR/XR hip RT min 2V IMPRESSION: Normal x-ray. Electronically signed by: Wilian Miranda MD 05/13/2025 12:57 PM EDT
--- NOTE | ~2025-05-13 | XR_ITS ---
EXAMINATION: XR CERVICAL SPINE CLINICAL INFORMATION: M54.2 - Cervicalgia COMPARISON: None available. TECHNIQUE: 3 views of the cervical spine were obtained. FINDINGS: Craniocervical junction is intact. Reverse curvature apex at C4-5. No acute cortical disruption. Grade 1 anterolisthesis C3-4. No lytic or blastic lesions. XR/XR cervical spine 3V IMPRESSION: Cervical spondylosis C4-5 and C5-6 with a grade 1 anterolisthesis C3-4. Electronically signed by: Wilian Miranda MD 05/13/2025 12:56 PM EDT
--- NOTE | ~2025-05-13 | XR_ITS ---
EXAMINATION: XR SHOULDER, RIGHT CLINICAL INFORMATION: M79.18 - Myalgia, other site COMPARISON: None available. TECHNIQUE: AP and lateral views of the right shoulder. FINDINGS: No acute cortical disruption or malalignment. No lytic or blastic lesion. Normal joint spaces. XR/XR shoulder RT min 2V IMPRESSION: Normal x-ray. Electronically signed by: Wilian Miranda MD 05/13/2025 12:57 PM EDT
== END 2025-05-13 10:23 | disposition home or self-care (01) ==
LOC: HO.HOSX 10:22
PROVIDERS: PCP Internal Medicine; Visit Provider Physical Medicine & Rehabilitation
DX: M25.551 Pain in right hip (principal); M54.2 Cervicalgia; R10.31 Right lower quadrant pain; M25.511 Pain in right shoulder; M79.18 Myalgia, other site
CPT/HCPCS: 72040; 73030; 73502; 99202

== ENCOUNTER 2025-05-13 10:22 | Outpatient (AMB) | payer OTHER, SELFPAY ==
[2025-05-13 10:24] VITALS: BMI 46.6
--- NOTE | 2025-05-13 10:24 | A.OFFVIS_ITS ---
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 Patient referred by JUSTIN High, who ordered a cervical spine CT however this was denied. Patient has tried gabapentin but states that she was ill after taking it so it was discontinued by her PCP at her last visit. Patient reports that the pain is located right side of her neck down to her ankle. She states that she has numbness and tingling in both arms down to her finger tips.Patient reports that since 02/22 is when she started to have constant pain radiating from neck to her foot. States no Falls, No injures that she can think of. Allergies No Known Allergies Allergy (Verified 05/13/25 10:29) Medication List - Last Reconciled 05/13/25 by Anastacia Arriaga MD barium sulfate 2%(w/v) (Readi-Cat 2) 150 mL PO ONCE cholecalciferol (vitamin D3) 1,250 mcg PO QWEEK 3 months cyclobenzaprine 5 mg PO TID PRN cyclobenzaprine 10 mg PO Q8H ibuprofen 800 mg PO TID PRN lisinopril 10 mg PO DAILY norgestimate-ethinyl estradiol 0.18/0.215/0.25 mg-0.035mg (28) (Tri-Estarylla) 1 tab PO DAILY prednisone 40 mg (2 x 20 mg) PO DAILY 5 days HPI Comments Details: Started July 2024 as lump/pain right groin, started causing pain on right leg, but then past few months has radiated towards right shoulder. She also now has both hand numbness. She's had abdominal CT and has seen OBGYN. Now she thinks pain starts from right shoulder area, difficulty lifting right shoulder/arm. No problems with ROM on left side but also gets tingling there. Occasional lower back pain only. But still has right groin pain that radiates to toes. At times, can have numbness on right leg, not the foot. No past injuries. No xrays. No PT. History of Vitamin D deficiency and HTN. [facility] Medical History (Updated 05/13/25 @ 11:09 by Anastacia Arriaga MD) Bilateral hand numbness Back pain with right-sided sciatica Follow-up exam, 3-6 months since previous exam Morbid obesity with BMI of 45.0-49.9, adult Lower abdominal pain Contact dermatitis Hypertension Surgical History Previous section Hx of cholecystectomy Hx of appendectomy Family History Mother Breast cancer Hypertension Sister Type 2 diabetes mellitus Father Myocardial infarction Brother Myocardial infarction, Onset Age: 40 Social History Household Members: Family Housing: Apartment Alcohol intake: current Alcohol intake frequency: holidays/special occasions only Patient Tobacco Use Status: Former Tobacco user Tobacco use type: Cigarette Cigarettes Per Day: 2 e-Cigarette/Vaping Use: Never Used Second Hand Smoke Exposure: Yes Substance Use Type: Marijuana service: No Current occupational status: employed Cognitive needs: No Hearing needs: No Vision needs: Yes (Glasses) Female Reproductive History Menstrual Age of Menarche: 15 Review of Systems Const All systems reviewed & are unremarkable except as noted in HPI and below Physical Exam Vital Signs: BMI result Body Mass Index 46.6 Constitutional: Patient appears to be in no acute distress, well nourished and well developed. Patient was appropriately conversant and oriented. Good historian. MSK: Inspection reveals appropriate head and neck positioning. Tightness noted on right upper trapezius. Cervical ROM was full. Spurling's sign negative. Bilateral shoulder, elbow and wrist ROM WNL. No ligamentous laxity or crepitance. No increased effusion. Positive right Shaw sign. Equivocal on empty can sign. No specific abnormalities or instability found on inspection and palpation of the spine and extremities. Lumbar ROM was full. No tenderness over right inguinal tendon, GT, SI, ITB. Positive groin pain right on fabere test. Negative SLR. Strength is 5/5 in all muscle groups tested. No increased tone noted. Neurological: Neurologic examination of the upper and lower extremities was nonfocal with intact sensation, muscle stretch reflexes and without focal motor deficits . Sullivan?s negative bilaterally. Babinski was down going bilaterally. Clonus was negative. Gait is non-antalgic without loss of balance. Patient was able to perform heel walk and toe walk. Results Reviewed Results Reviewed: Ordering Physician: Yaneli Gutierrez PA-C Date of Service: 03/10/25 Procedure(s): CT abdomen pelvis w IV con Accession Number(s): [id number] cc: Yaneli Gutierrez PA-C; Sesar Noble MD~ Report Number: [id number]: Total DLP = 804.00 mGy-cm CLINICAL HISTORY: R10.30 - Lower abdominal pain, unspecified CT abdomen and pelvis with contrast Comparison: US/SR - US ABDOMEN COMPLETE - 07/27/24 10:43 EDT US/SR - US PELVIC AND TRANSVAGINAL - 07/27/24 10:36 EDT Findings: The visualized portions of the lungs are normal in appearance. The liver is normal in size without suspicious focal hepatic lesions. No intrahepatic or extrahepatic ductal dilatation is seen. The hepatic and portal veins are patent. Cholecystectomy. Pancreas, spleen and adrenals are normal in appearance. No suspicious focal lesion of the kidneys. Small hypodensities of the kidneys are too small to characterize statistically representing cysts. No hydronephrosis or calculi. The abdominal aorta demonstrates no evidence of aneurysmal dilatation or dissection. The colon is normal in appearance and without wall thickening or inflammatory change. No evidence of bowel obstruction. Appendicectomy. The pelvic organs are within normal limits. No intraperitoneal free air or fluid is visualized. No pathologic lymphadenopathy is seen. Small fat containing umbilical hernia. There are no osseous or soft tissue abnormalities. IMPRESSION: No acute findings. This document has been electronically signed by: Kat Ferrari MD on 03/10/2025 14:32:59 I reviewed records from the following: PCP Assessment & Plan Assessment & Plan (1) Myofascial pain: Code(s): M79.18 - Myalgia, other site Category: Medical (2) Right shoulder pain: Code(s): M25.511 - Pain in right shoulder Category: Medical Qualifiers: Chronicity: chronic Qualified Code(s): M25.511 - Pain in right shoulder; G89.29 - Other chronic pain (3) Right groin pain: Code(s): R10.31 - Right lower quadrant pain Category: Medical (4) Bilateral hand numbness: Code(s): R20.0 - Anesthesia of skin Category: Medical Plan I have suspicion that symptoms on upper extremity right side is separate from right groin pain. Myofascial pain on right upper trapezius versus shoulder issue. Suspicious for pathology in right hip joint. X-rays today: Cervical, right shoulder, right hip. We will schedule for EMG for numbness in both hands. Rule out Carpal Tunnel Syndrome. Most likely was send patient to PT, depending on x-ray results. May apply heating pad on right upper trapezius area. May continue topical cream. May be out of work today. Assessment and plan discussed with patient, and patient was agreeable. All questions were answered thoroughly. Anastacia Arriaga MD, BRIDGER Board Certified, [place] Board [employer] Physical Medicine and Rehabilitation (ABPMR) Board Certified, [place] Board [employer] Electrodiagnostic Medicine (ABEM) Orders: Orders XR shoulder RT min 2V Today M25.511 - Pain in right shoulder, M79.18 - Myalgia, other site, R10.31 - Right lower quadrant pain NE electromyogram (EMG) Today R20.0 - Anesthesia of skin NE nerve conduction velocity Today R20.0 - Anesthesia of skin XR cervical spine 3V Today M25.511 - Pain in right shoulder, M54.2 - Cervicalgia, M79.18 - Myalgia, other site, R10.31 - Right lower quadrant pain XR hip RT min 2V Today M25.511 - Pain in right shoulder, M25.551 - Pain in right hip, M79.18 - Myalgia, other site, R10.31 - Right lower quadrant pain Medications: Discontinued cyclobenzaprine Discontinued Reason: Patient no longer taking 5 mg PO TID PRN 90 tabs 1RF for muscle spasm prednisone Discontinued Reason: Patient Completed Course 40 mg (2 x 20 mg) PO DAILY 5 days 10 tabs 0RF Coding Level of Care Code New Pt Level 4 (33263) Diagnoses Myofascial pain M79.18 Chronic right shoulder pain M25.511; G89.29 Chronicity: chronic Right groin pain R10.31 Bilateral hand numbness R20.0
--- OUTSIDE RECORDS SUMMARY | 2025-05-13 11:21 | XMS_ITS | Clinical Summary ---
Author Organization [facility] Address [address] [place] [address] Phone Care Team Providers Care Responder Name Role Phone Sesar Noble MD Primary Care Provider [phone]- [phone] Allergies No known active allergies Medications lisinopriL (PRINIVIL,ZESTRI L) 5 mg tablet Take 1 tablet (5 mg total) by mouth 1 (one) time each day. Active norgestimate-eth inyl estradioL (Tri-Estarylla) 0.18/0.215/0.25 mg-35 mcg (28) per tablet Take 1 tablet by mouth 1 (one) time each day. 02/22/2013 Active Active Problems No known active problems Surgical History Surgery Date Site/Laterality Comments APPENDECTOMY [...] care for your loved ones. 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 or elderly care for an older [...] 11/03/2022 Hepatitis C Screening 11/03/2022 Influenza Vaccine (Season Ended) 2025 Hypertension/CHF/CAD Annual BMP Blood Test 01/22/2026 01/22/2025 [...] Procedure Name Priority Date/Time Associated Diagnosis Comments COMPREHENSIVE METABOLIC PANEL STAT 01/22/2025 1:48 PM EST from Last 3 Months or Most Recently Relevant to Health Maintenance Results * Comprehensive metabolic panel (01/22/2025 1:48 PM EST) Sodium 138 133 - 145 mmol/L LAB CHEMISTRY METHOD 01/22/2025 2:30 PM [facility] Potassium 4.1 3.5 - 5.5 mmol/L LAB CHEMISTRY METHOD 01/22/2025 2:30 PM [facility] Chloride 105 96 - 110 mmol/L LAB CHEMISTRY METHOD 01/22/2025 2:30 PM [facility] CO2 25 21 - 32 mmol/L LAB CHEMISTRY METHOD 01/22/2025 2:30 PM [facility] Anion Gap 8 3 - 11 LAB CHEMISTRY METHOD 01/22/2025 2:30 PM [facility] Glucose 92 70 - 100 mg/dL LAB CHEMISTRY METHOD 01/22/2025 2:30 PM [facility] BUN 11 5 - 25 mg/dL LAB CHEMISTRY METHOD 01/22/2025 2:30 PM [facility] Creatinine 0.54 0.50 - 1.10 mg/dL LAB CHEMISTRY METHOD 01/22/2025 2:30 PM [facility] eGFR 121 >=60 mL/min/1. 73m2 LAB CHEMISTRY METHOD 01/22/2025 2:30 PM [facility] Comment:Calculation based on the??Chronic Kidney Disease Epidemiology Collaboration (CKD-EPI) equation refit??without adjustment for race. BUN/Creatinine Ratio 20.4 LAB CHEMISTRY METHOD 01/22/2025 2:30 PM [facility] Calcium 8.9 8.5 - 10.5 mg/dL LAB CHEMISTRY METHOD 01/22/2025 2:30 PM [facility] AST (SGOT) 28 10 - 42 unit/L LAB CHEMISTRY METHOD 01/22/2025 2:30 PM [facility] ALT (SGPT) 43 10 - 60 unit/L LAB CHEMISTRY METHOD 01/22/2025 2:30 PM [facility] Alkaline Phosphatase 72 42 - 121 unit/L LAB CHEMISTRY METHOD 01/22/2025 2:30 PM [facility] Total Protein 6.9 6.0 - 8.0 g/dL LAB CHEMISTRY METHOD 01/22/2025 2:30 PM [facility] Albumin 3.6 3.2 - 5.0 g/dL LAB CHEMISTRY METHOD 01/22/2025 2:30 PM [facility] Total Bilirubin 0.5 0.0 - 1.4 mg/dL LAB CHEMISTRY METHOD 01/22/2025 2:30 PM [facility] Blood Venous blood specimen / Unknown Venipuncture / Unknown 01/22/2025 1:48 PM EST 01/22/2025 1:58 PM EST us Phan Moran MD LAB BLOOD ORDERABLES Final Result [facility] [address] [place] [address], from Last 3 Months or Most Recently Relevant to Health Maintenance Insurance [facility] [employer] Advance Directives * Full Code [...] currently active code status orders. Care Teams Responder Relationship Specialty Start Date End Date Sesar Noble MD [facility] [address] [facility] [id number] PCP - General Internal Medicine 01/22/25
== END 2025-05-13 11:10 | disposition home or self-care (01) ==
LOC: HO.HOS 10:22
PROVIDERS: PCP Internal Medicine; Visit Provider Physical Medicine & Rehabilitation
DX: M79.18 Myalgia, other site (principal); M25.511 Pain in right shoulder; G89.29 Other chronic pain; R10.31 Right lower quadrant pain; R20.0 Anesthesia of skin
CPT/HCPCS: 99204

== ENCOUNTER → 2025-05-13 10:51 | Outpatient (BNV) | payer OTHER, SELFPAY | PROVIDERS: PCP Internal Medicine; Visit Provider Radiology Diagnostic Radiology | DX: M25.551 Pain in right hip (principal); M47.812 Spondylosis without myelopathy or radiculopathy, cervical region; M79.18 Myalgia, other site | CPT/HCPCS: 72040; 73030; 73502 ==

== ENCOUNTER 2025-06-29 13:23 | Outpatient (REF) | payer OTHER, SELFPAY ==
--- NOTE | 2025-06-29 13:26 | EMG_ITS ---
Chief complaint: Patient seen in physiatry for mostly right-sided symptoms. She also complain of bilateral hand numbness. Saying it has been much worse especially at night. Reason for referral: Evaluate for Carpal Tunnel Syndrome Procedure done: Bilateral upper extremities NCS/EMG Precautions and/or limitations: None The limb temperature was monitored continuously and remained between 32-36 degrees C during the performance of the NCS. Nerve Conduction Studies Anti Sensory Summary Table ?Stim Site NR Onset (ms) Norm Onset (ms) Peak (ms) Norm Peak (ms) O-P Amp (?V) Norm O-P Amp Site1 Site2 Delta-0 (ms) Dist (cm) Danny (m/s) Norm Danny (m/s) Left Median Anti Sensory (2nd Digit) Wrist ? 3.2 3.8 <3.6 16.6 >10 Wrist 2nd Digit 3.2 14.0 44 Right Median Anti Sensory (2nd Digit) Wrist ? 2.3 3.0 <3.6 40.2 >10 Wrist 2nd Digit 2.3 14.0 61 Left Ulnar Anti Sensory (5th Digit) Wrist ? 2.2 2.9 <3.7 19.9 >15.0 Wrist 5th Digit 2.2 14.0 64 Right Ulnar Anti Sensory (5th Digit) Wrist ? 2.3 2.8 <3.7 19.4 >15.0 Wrist 5th Digit 2.3 14.0 61 Motor Summary Table ?Stim Site NR Onset (ms) Norm Onset (ms) O-P Amp (mV) Norm O-P Amp iAmp (mV) Amp (1st) (%) Site1 Site2 Delta-0 (ms) Dist (cm) Danny (m/s) Norm Danny (m/s) Left Median Motor (Abd Poll Brev) Wrist ? 3.9 <3.9 9.1 >4.5 10.6 100.0 Elbow Wrist 3.4 21.0 62 >45 Elbow ? 7.3 8.3 9.7 91.2 Right Median Motor (Abd Poll Brev) Wrist ? 3.4 <3.9 5.3 >4.5 6.1 100.0 Elbow Wrist 3.5 20.0 57 >45 Elbow ? 6.9 5.0 5.7 94.3 Left Ulnar Motor (Abd Dig Minimi) Wrist ? 2.7 <3.0 8.2 >5 10.1 100.0 B Elbow Wrist 2.9 18.5 64 >45 B Elbow ? 5.6 8.6 10.6 104.9 A Elbow B Elbow 1.4 10.0 71 >45 A Elbow ? 7.0 8.1 9.9 98.8 Right Ulnar Motor (Abd Dig Minimi) Wrist ? 2.8 <3.0 9.0 >5 10.6 100.0 B Elbow Wrist 3.0 18.0 60 >45 B Elbow ? 5.8 8.7 10.5 96.7 A Elbow B Elbow 1.1 10.0 91 >45 A Elbow ? 6.9 8.5 10.3 94.4 Comparison Summary Table ?Stim Site NR Peak (ms) Norm Peak (ms) P-T Amp (?V) Site1 Site2 Delta-P (ms) Norm Delta (ms) Right Median/Radial Dig I Comparison (Digit 1 - 10cm) Median ? 2.4 <2.9 82.9 Median Radial 0.0 Radial ? 2.4 <2.8 10.9 EMG ?Side Muscle Nerve Root Ins Act Fibs Psw Amp Dur Poly Recrt Int Pat Comment Right 1stDorInt Ulnar C8-T1 Nml Nml Nml Nml Nml 0 Nml Complete Right FlexCarRad Median C6-7 Nml Nml Nml Nml Nml 0 Nml Complete Right Biceps Musculocut C5-6 Nml Nml Nml Nml Nml 0 Nml Complete Right Triceps Radial C6-7-8 Nml Nml Nml Nml Nml 0 Nml Complete Right Deltoid Axillary C5-6 Nml Nml Nml Nml Nml 0 Nml Complete Left 1stDorInt Ulnar C8-T1 Nml Nml Nml Nml Nml 0 Nml Complete Left FlexCarRad Median C6-7 Nml Nml Nml Nml Nml 0 Nml Complete Left Biceps Musculocut C5-6 Nml Nml Nml Nml Nml 0 Nml Complete Left Triceps Radial C6-7-8 Nml Nml Nml Nml Nml 0 Nml Complete Left Deltoid Axillary C5-6 Nml Nml Nml Nml Nml 0 Nml Complete FINDINGS: Left median sensory nerve showed prolonged peak latency. All other nerves tested were within normal. Concentric needle EMG was performed in selected muscles of the bilateral upper extremities. Study did not reveal signs of electric abnormalities as shown in the table above. IMPRESSION: 1. This is an abnormal study. 2. There is electrodiagnostic evidence for left mild median neuropathy at the wrist, still consistent with carpal tunnel syndrome. 3. There is no electrodiagnostic evidence for ulnar neuropathy, brachial plexopathy, or cervical radiculopathy. 4. No signs of median neuropathy on right. CLINICAL COMMENT: Advised wearing wrist braces at night. We will see patient in physiatry for follow up Thank you for your kind referral. Anastacia Arriaga MD, BRIDGER Board Certified, [place] Board [employer] Physical Medicine and Rehabilitation (ABPMR) Board Certified, [place] Board [employer] Electrodiagnostic Medicine (ABEM) CODIN [phone] x 2 MTDD
--- OUTSIDE RECORDS SUMMARY | 2025-06-29 13:57 | XMS_ITS | Clinical Summary ---
Author Organization [facility] Address [address] [place] [address] Phone Care Team Providers Care Disk Grinder Name Role Phone Sesar Noble MD Primary Care Provider [phone]- [phone] Allergies No known active allergies Medications lisinopriL [...] care for your loved ones. For example, children's book author or elderly care for an older adult? [...] 51 01/22/2025 10:08 PM EST Temperature 36.3 C (97.3 F) 01/22/2025 10:08 PM EST Respiratory Rate 16 01/22/2025 10:08 PM EST [...] 03/21/2022, 02/21/2022 Cholesterol Screening (Lipid Panel) 11/03/2022 HIV Screening 11/03/2022 Hepatitis C Screening 11/03/2022 Depression Screening 12/01/2024 Influenza Vaccine (#1) 2025 Hypertension/CHF/CAD Annual BMP Blood Test 01/22/2026 [...] 5 Years) and At-Risk Patients (6 to 49 Years) Aged Out No longer eligible b [...] mmol/L LAB CHEMISTRY METHOD 01/22/2025 2:30 PM [facility] Potassium 4.1 3.5 - 5.5 mmol/L LAB CHEMISTRY METHOD 01/22/2025 2:30 PM [facility] Chloride 105 96 - 110 mmol/L LAB CHEMISTRY METHOD 01/22/2025 2:30 PM [facility] CO2 25 21 - 32 mmol/L LAB CHEMISTRY METHOD 01/22/2025 2:30 PM [facility] Anion Gap 8 3 - 11 LAB CHEMISTRY METHOD 01/22/2025 2:30 PM [facility] Glucose 92 70 - 100 mg/dL LAB CHEMISTRY METHOD 01/22/2025 2:30 PM [facility] BUN 11 5 - 25 mg/dL LAB CHEMISTRY METHOD 01/22/2025 2:30 PM [facility] Creatinine 0.54 0.50 - 1.10 mg/dL LAB CHEMISTRY METHOD 01/22/2025 2:30 PM [facility] eGFR 121 >=60 mL/min/1. 73m2 LAB CHEMISTRY METHOD 01/22/2025 2:30 PM [facility] Comment:Calculation based on the Chronic Kidney Disease Epidemiology Collaboration (CKD-EPI) equation refit without adjustment for race. BUN/Creatinine Ratio 20.4 LAB CHEMISTRY METHOD 01/22/2025 2:30 PM [facility] Calcium 8.9 8.5 - 10.5 mg/dL LAB CHEMISTRY METHOD 01/22/2025 2:30 PM [facility] AST (SGOT) 28 10 - 42 unit/L LAB CHEMISTRY METHOD 01/22/2025 2:30 PM [facility] ALT (SGPT) 43 10 - 60 unit/L LAB CHEMISTRY METHOD 01/22/2025 2:30 PM [facility] Alkaline Phosphatase 72 42 - 121 unit/L LAB CHEMISTRY METHOD 01/22/2025 2:30 PM [facility] Total Protein 6.9 6.0 - 8.0 g/dL LAB CHEMISTRY METHOD 01/22/2025 2:30 PM [facility] Albumin 3.6 3.2 - 5.0 g/dL LAB CHEMISTRY METHOD 01/22/2025 2:30 PM [facility] Total Bilirubin 0.5 0.0 - 1.4 mg/dL LAB CHEMISTRY METHOD 01/22/2025 2:30 PM [facility] Blood Venous blood specimen / Unknown Venipuncture / Unknown 01/22/2025 1:48 PM EST 01/22/2025 1:58 PM EST us Phan Moran MD LAB BLOOD ORDERABLES Final Result [facility] [address] [place] [address], from Last 3 Months or Most Recently Relevant to Health Maintenance Insurance [facility] [employer] Advance Directives * Full [...] currently active code status orders. Care Teams Disk Grinder Relationship Specialty Start Date End Date Sesar Noble MD [facility] [address] [facility] [id number] PCP - General Internal Medicine 01/22/25
== END 2025-06-29 13:24 | disposition home or self-care (01) ==
LOC: HO.NEURO 13:23
PROVIDERS: PCP Internal Medicine; Visit Provider Physical Medicine & Rehabilitation
DX: R20.0 Anesthesia of skin (principal); R94.131 Abnormal electromyogram [EMG]
CPT/HCPCS: 95886; 95911

== ENCOUNTER → 2025-06-29 13:26 | Outpatient (BNV) | payer OTHER, SELFPAY | PROVIDERS: PCP Internal Medicine; Visit Provider Physical Medicine & Rehabilitation | DX: G56.03 Carpal tunnel syndrome, bilateral upper limbs (principal) | CPT/HCPCS: 95886; 95911 ==

== ENCOUNTER → 2025-07-22 09:11 | Outpatient (BNV) | payer OTHER, SELFPAY | PROVIDERS: PCP Internal Medicine; Visit Provider Radiology Diagnostic Radiology | DX: R42 Dizziness and giddiness (principal); R51.9 Headache, unspecified; M54.2 Cervicalgia; R26.81 Unsteadiness on feet; R07.89 Other chest pain | CPT/HCPCS: 70496; 70498 ==

== ENCOUNTER 2025-07-22 09:39 | Inpatient (IN) | payer OTHER, SELFPAY ==
[2025-07-22] VITALS (9 sets, daily range): BP systolic 148–219; BP diastolic 63–87; PULSE 46–67; RESP 14–24; TEMP 36.3–36.8; O2SAT 98–100; BMI 45.7; BMI 50.0
--- NOTE | ~2025-07-22 | XR_ITS ---
EXAMINATION: XR CHEST CLINICAL INFORMATION: chest tightness COMPARISON: None available. TECHNIQUE: 2 views of the chest were obtained. FINDINGS: No significant abnormality is noted involving the heart, lungs, mediastinum, bony thorax or soft tissues. XR/XR chest 2V IMPRESSION: No acute disease Electronically signed by: Jose Rogers MD 07/22/2025 10:29 AM EDT
--- NOTE | ~2025-07-22 | CT_ITS ---
EXAMINATION: CT HEAD NECK ANGIOGRAPHY WITH IV CONTRAST CLINICAL INFORMATION: dizziness, neck pain, headache, unsteady COMPARISON: None available. TECHNIQUE: The degree of stenosis determined by NASCET criteria. This CT examination was performed using dose optimization techniques as appropriate, variously including the following: *Automated exposure control *Adjustment of mA and/or kV according to patient size (this includes techniques or standardized protocols for targeted exams where dose is matched to indication/reason for exam; i.e. extremities or head) *Use of iterative reconstruction technique FINDINGS: HEAD CT: Brain parenchyma: No shift of midline structures. No evidence of acute territorial infarct, parenchymal hemorrhage or mass effect. No abnormal parenchymal enhancement. Ventricles/extra-axial CSF spaces. No hydrocephalus. No extra-axial fluid collection. Calvarium/extracranial structures: No depressed skull fracture. Paranasal sinuses and mastoid air cells are clear. No orbital abnormality. CTA OF THE HEAD: Anterior circulation: No aneurysm, arteriovenous malformation, occlusion or severe stenosis of the imaged intracranial arteries. The intracranial internal carotid arteries, anterior and medial cerebral arteries are patent. Anterior communicating artery is present. Posterior circulation: No aneurysm, arteriovenous malformation, occlusion or severe stenosis of the imaged intracranial arteries. The intracranial vertebral and basilar arteries are patent. The right posterior communicating arteries present. Venous structures: No evidence of thrombosis. CTA OF THE NECK: Aortic arch: Left sided three-vessel aortic arch. Right carotid arteries: Common and internal carotid arteries are patent, without stenosis, occlusion or evidence of dissection. Left carotid arteries: Common and internal carotid arteries are patent, without stenosis, occlusion or evidence for dissection. External carotid arteries: Patent Vertebral arteries: Patent, without stenosis, occlusion or evidence of dissection. Nonvascular findings: No suspicious incidental findings. Lung apices are clear. No acute osseous abnormality. CT/CT angio head neck IMPRESSION: CT of the head: No acute intracranial findings. CTA of the head: No intracranial aneurysm, arteriovenous malformation or vascular occlusion. CTA of the neck: No stenosis, occlusion or evidence of dissection of the extracranial carotid and vertebral arteries. Electronically signed by: Varghese Santos MD 07/22/2025 01:35 PM EDT
--- NOTE | 2025-07-22 09:43 | ECG_ITS ---
Test Reason : chest tightness Blood Pressure : */* mmHG Vent. Rate : 61 BPM Atrial Rate : 61 BPM P-R Int : 158 ms QRS Dur : 104 ms QT Int : 430 ms P-R-T Axes : 12 71 37 degrees QTcB Int : 432 ms Sinus rhythm with Premature atrial complexes Otherwise normal ECG No previous ECGs available Referred By: Generic ED Physician Electronically Signed By: ALFA OLIVA MD
--- NOTE | 2025-07-22 10:02 | ED_ITS ---
HPI - General Adult General Chief complaint: General Medical Stated complaint: Chest Tightness Neck Pain Etc Time Seen by Provider: 07/22/25 10:02 Source: patient Mode of arrival: ambulatory Limitations: no limitations History of Present Illness ED Provider: Mercy Rivera PA-C HPI narrative: Patient is a 39 year old assigned female at with a history of HTN for which she is on lisinopril and took her morning dose, sciatica back pain, and migraines presenting to the emergency department today with head / neck pain, chest tightness, and dizziness. Patient states that over the last few days she has had pain that started in the lower neck / shoulders and went up the back of her head now into her head and some chest tightness. Patient states that she has had some nausea and vomiting as well. Patient states that she has had some dizziness / lightheadedness. Patient denies any abdominal pain, fever, chills, blurry vision, double vision, loss of vision, difficulty breathing, shortness of breath, back pain, night sweats, pain with urination, increased urinary frequency, increased urinary urgency, blood in her urine or stool, syncope or a near syncopal episode, recent trauma or falls, bowel incontinence, bladder incontinence, or any other complaints at this time. Patient states that she PREVIOUSLY had some breath shortness but that has resolved. Relieving factors: none Exacerbating factors: none Associated symptoms: chest pain, headaches and nausea/vomiting Treatments prior to arrival: none Related Data Home Medications ?Medication ?Instructions ?Recorded ?Confirmed lisinopril 10 mg tablet 10 mg PO DAILY 02/03/2507/02 acetaminophen 325 mg tablet 650 mg PO Q6H PRN Fever Or Pain 07/22/25 07/22/25 Allergies Allergy/AdvReac Type Severity Reaction Status Date / Time No Known Allergies Allergy Verified 07/22/25 09:54 Review of Systems 2 Constitutional: Constitutional: Reports no additional constitutional complaints, Denies chills, Denies fever(s), Reports headache(s) and Denies night sweats Eyes: Eyes: Reports no additional eye complaints, Denies blurry vision, Denies change in vision, Denies diplopia, Denies eye discharge, Denies loss of vision and Denies eye pain ENT: Reports dizziness and Reports headache(s) Cardiovascular: Cardiovascular: Reports no additional cardiovascular complaints, Reports chest pain, Reports lightheadedness, Denies Loss of Consciousness and Denies dyspnea Respiratory: Respiratory: Reports no additional respiratory complaints and Denies dyspnea Gastrointestinal: Gastrointestinal: Reports no additional gastrointestinal complaints, Denies abdominal pain, Denies melena, Denies hematochezia, Denies change in bowel habits, Denies change in stool character, Reports nausea and Reports vomiting Genitourinary: Genitourinary: Denies hematuria, Denies urinary frequency, Denies dysuria, Denies urinary incontinence, Denies urinary hesitancy and Denies urinary urgency Musculoskeletal: Musculoskeletal: Reports no additional musculoskeletal complaints, Denies numbness and Denies tingling Neurologic: Reports dizziness, Reports headache(s), Denies loss of vision, Denies numbness and Denies tingling Psychiatric: Psychiatric: Reports no additional psychiatric complaints Endocrine: Endocrine: Reports no additional endocrine complaints Hematologic/Lymphatic: Hematologic/Lymphatic: Reports no additional hematologic/lymphatic complaints Allergic/Immunologic: Allergic/Immunologic: Reports no additional allergic/immunologic complaints PMFSH Past Medical History Attestation statement: The following information was validated with the patient. Source: old records reviewed and nursing notes reviewed Medical History Bilateral hand numbness Back pain with right-sided sciatica Follow-up exam, 3-6 months since previous exam Morbid obesity with BMI of 45.0-49.9, adult Lower abdominal pain Contact dermatitis Hypertension Surgical History Previous section Hx of cholecystectomy Hx of appendectomy Family History Family History Mother Breast cancer Hypertension Sister Type 2 diabetes mellitus Father Myocardial infarction Brother Myocardial infarction, Onset Age: 40 Social History Social History Household Members: Family Housing: Apartment Alcohol intake: current Alcohol intake frequency: holidays/special occasions only Patient Tobacco Use Status: Former Tobacco user Tobacco use type: Cigarette Cigarettes Per Day: 2 Smoked in Last 30 Days: Yes e-Cigarette/Vaping Use: Never Used Second Hand Smoke Exposure: Yes Use of substances other than those prescribed or required for medical reasons: Yes Substance Use Type: Marijuana Substance Use Frequency: Occasionally Last Used Substance: Days (ago) Advance Directives: No Advance Directives Information Provided: Yes service: No Current occupational status: employed Cognitive needs: No Hearing needs: No Vision needs: Yes (Glasses) Physical Exam ED Vital Signs: Vital Signs - 24 hr 07/22/25 09:51 07/22/25 10:20 07/22/25 12:33 Temperature 97.4 F Pulse Rate 53 57 46 L Respiratory Rate 16 18 Blood Pressure 219/85 H 163/87 H 172/73 H Pulse Oximetry 100 98 Oxygen Delivery Method Room Air 07/22/25 12:35 07/22/25 12:36 07/22/25 12:46 Temperature 98.1 F Pulse Rate 67 52 52 Respiratory Rate 14 Blood Pressure 165/73 H 148/63 H 160/67 H Pulse Oximetry 100 Oxygen Delivery Method Room Air BMI result Body Mass Index 45.7 Const General: cooperative, no acute distress, alert and awake Nutritional Appearance: well nourished Orientation/consciousness: patient oriented x3 HENMT Head: Yes normal to inspection and Yes atraumatic Ears: hearing grossly normal bilaterally and external ears normal General nose exam: Normal external nose present, no nasal discharge noted and no epistaxis Face and sinus: Yes normal facial exam, No abrasion and No laceration Mouth: Normal oral and palatal mucosa present, no drooling and no muffled voice Eyes General: appearance normal, both eyes and all related structures Periorbital: periorbital findings normal Eyelids: Yes eyelids normal Conjunctivae: conjunctivae normal Pupils: Equal, round and reactive pupils present EOM: EOMs intact bilaterally Neck Neck: Yes normal visual inspection and Yes full ROM Resp Effort & Inspection: normal respiratory effort and able to speak in complete sentences Neuro General: patient oriented x3, moves all extremities and CN's II-XI intact bilaterally Cranial nerves: Yes Equal, round and reactive pupils present Cognition (Neuro): normal cognition Extrem General: Yes normal to inspection, Yes full ROM and Yes capillary refill normal Psych Appearance: grossly normal Mental Status: mental status grossly normal Affect: normal affect Attitude: cooperative Thought process: Normal thought process present Thought content: Normal thought content present Insight: Good insight present (Psych) Medications Administered Discontinued Medications Generic Name Dose Route Start Last Admin Trade Name Freq PRN Reason Stop Dose Admin Sodium Chloride 1,000 mls @ 999 mls/hr 07/22/25 12:45 07/22/25 14:29 Ns IV 07/22/25 13:45 Infused .Q1H1M NEAL Infusion Acetaminophen 1,000 mg in 100 mls @ 400 mls/hr 07/22/25 13:19 07/22/25 14:28 Ofirmev IV 07/22/25 13:33 Infused ONCE ONE Infusion Iohexol 100 ml 07/22/25 12:21 07/22/25 12:21 Iohexol 350 Mg/Ml 100 Ml Infus..Btl IV 07/22/25 12:22 70 ml ONCE ONE Administration Metoclopramide HCl 10 mg 07/22/25 13:18 07/22/25 13:41 Metoclopramide Hcl 10 Mg/2 Ml Vial IVPUSH 07/22/25 13:19 10 mg ONCE ONE Administration Morphine Sulfate 4 mg 07/22/25 10:23 07/22/25 10:44 Morphine Sulfate 4 Mg/Ml Cartridge IVPUSH 07/22/25 10:24 4 mg ONCE ONE Administration Protocol Ondansetron HCl 4 mg 07/22/25 10:23 07/22/25 10:45 Ondansetron Hcl 4 Mg/2 Ml Vial IVPUSH 07/22/25 10:24 4 mg ONCE ONE Administration Medical Decision Making Medical Decision Making MDM Narrative: Patient is a 39 year old assigned female at with a history of HTN for which she is on lisinopril and took her morning dose, sciatica back pain, and migraines presenting to the emergency department today with head / neck pain, chest tightness, and dizziness.. Patient's physical exam was as noted in the physical exam portion of this note. Patient did become somewhat bradycardic in the 40s - 60s and became dizzy / lightheaded when she stood up. Patient's blood work was unremarkable. Patient's EKG was unremarkable. Patient's chest x-ray and CTA head/neck showed no acute process. Patient was given IV fluids, Morphine, Reglan, and Zofran which she stated helped her symptoms some but did not resolve her headache. Patient was hypertensive while in [place] department. Given the patient's persistent symptoms, orthostasis, hypertension, and bradycardia - I requested the hospitalist team to admit the patient. They agreed to admission. I explained my physical exam findings as well as all test results to the patient. I answered all questions asked by the patient. Patient verbalized agreement and understanding with this treatment plan and admission. Differential Diagnosis Differential Diagnoses: The differential diagnosis associated with the presentation includes Migraine Orthostasis Hypertension Hypertensive urgency Hypertensive emergency Admission/Observation Consideration of admission/observation: Escalation of care including admission/observation considered Patient admitted as noted in the MDM Rationale portion of this note. Consult Healthcare Provider Management of the patient was discussed with: Hospitalist (agreed to admission as noted in the MDM Rationale portion of this note. ) Lab Data [facility] Lab Attestation statement: I reviewed the patient's lab results. My interpretation of these results are in the MDM Rationale portion of this note. 07/22/25 10:02 07/22/25 10:02 Labs: Lab Results 07/22/25 07/22/25 Range/Units 10:02 10:24 WBC 5.4 (4.8-10.8) X10*3/uL RBC 4.09 L (4.20-5.50) X10*6/uL Hgb 11.9 L (12.0-16.0) g/dl Hct 36.1 L (37.0-47.0) % MCV 88.3 (80.0-98.0) fL MCH 29.1 (27.0-33.0) pg MCHC 33.0 (31.0-35.0) g/dl RDW 14.2 (11.0-16.0) % Plt Count 248 (160-400) X10*3/uL MPV 9.8 (9.4-12.3) fL Immature Gran % (Auto) 0.4 (0.0-0.4) % Neut % (Auto) 62.1 (45-73) % Lymph % (Auto) 25.4 (20-40) % Bladen % (Auto) 7.7 (2-11) % Eos % (Auto) 4.0 (0-4) % Baso % (Auto) 0.4 (0-2) % Lymph # (Auto) 1.4 (1.2-4.9) X10*3/uL Bladen # (Auto) 0.4 (0.1-1.2) X10*3/uL Eos # (Auto) 0.2 (0.0-0.4) X10*3/uL Baso # (Auto) 0.0 (0.0-0.2) X10*3/uL Abs Immat Gran (auto) 0.02 (0.00-0.03) X10*3/uL Absolute Neuts (auto) 3.4 (2.0-8.3) x10*3/uL Absolute Nucleated RBC 0.000 (0.0-0.012) X10*3/uL Nucleated RBC % (auto) 0.0 (0.0-0.2) /100WBC Sodium 138 (135-145) mmol/L Potassium 4.2 (3.3-5.1) mmol/L Chloride 110 H (96-108) mmol/L Carbon Dioxide 22 (22-29) mmol/L Anion Gap 10 L (12-20) BUN 13 (9-16) mg/dL Creatinine 0.56 (0.5-1.4) mg/dL Estim Creat Clear Calc 162.1 Estimated GFR > 60 Random Glucose 104 (60-115) mg/dL Calcium 8.4 (8.4-10.2) mg/dL Total Bilirubin 0.2 (0.0-1.0) mg/dL AST 19 (5-31) U/L ALT 19 (0-31) U/L Alkaline Phosphatase 49 (39-117) U/L Troponin I High Sens < 2.7 (<3.5-17.0) ng/L Total Protein 6.3 L (6.5-8.0) g/dL Albumin 3.9 (3.5-5.0) g/dL Beta HCG, Quant < 2 mIU/mL COVID-19 (ROCIO) Negative (Negative) COVID-19 Clin Com See Note Influenza Type A (MARIA LUISA) Negative (Negative) Influenza Type B (MARIA LUISA) Negative (Negative) Influenza A & B Note See Note Independent Interpretation I performed an independent interpretation of an: EKG, Plain X-Ray and CT Scan Interpretation: My interpretation is in agreement with the radiologist's impression of these imaging studies. L Report Number: [id number]: Total DLP = 1543.00 mGy-cm EXAMINATION: CT HEAD NECK ANGIOGRAPHY WITH IV CONTRAST CLINICAL INFORMATION: dizziness, neck pain, headache, unsteady COMPARISON: None available. TECHNIQUE: The degree of stenosis determined by NASCET criteria. This CT examination was performed using dose optimization techniques as appropriate, variously including the following: *Automated exposure control *Adjustment of mA and/or kV according to patient size (this includes techniques or standardized protocols for targeted exams where dose is matched to indication/reason for exam; i.e. extremities or head) *Use of iterative reconstruction technique FINDINGS: HEAD CT: Brain parenchyma: No shift of midline structures. No evidence of acute territorial infarct, parenchymal hemorrhage or mass effect. No abnormal parenchymal enhancement. Ventricles/extra-axial CSF spaces. No hydrocephalus. No extra-axial fluid collection. Calvarium/extracranial structures: No depressed skull fracture. Paranasal sinuses and mastoid air cells are clear. No orbital abnormality. CTA OF THE HEAD: Anterior circulation: No aneurysm, arteriovenous malformation, occlusion or severe stenosis of the imaged intracranial arteries. The intracranial internal carotid arteries, anterior and medial cerebral arteries are patent. Anterior communicating artery is present. Posterior circulation: No aneurysm, arteriovenous malformation, occlusion or severe stenosis of the imaged intracranial arteries. The intracranial vertebral and basilar arteries are patent. The right posterior communicating arteries present. Venous structures: No evidence of thrombosis. CTA OF THE NECK: Aortic arch: Left sided three-vessel aortic arch. Right carotid arteries: Common and internal carotid arteries are patent, without stenosis, occlusion or evidence of dissection. Left carotid arteries: Common and internal carotid arteries are patent, without stenosis, occlusion or evidence for dissection. External carotid arteries: Patent Vertebral arteries: Patent, without stenosis, occlusion or evidence of dissection. Nonvascular findings: No suspicious incidental findings. Lung apices are clear. No acute osseous abnormality. CT/CT angio head neck IMPRESSION: CT of the head: No acute intracranial findings. CTA of the head: No intracranial aneurysm, arteriovenous malformation or vascular occlusion. CTA of the neck: No stenosis, occlusion or evidence of dissection of the extracranial carotid and vertebral arteries. Electronically signed by: Varghese Santos MD 07/22/2025 01:35 PM EDT Dictated By: Varghese Santos MD Signed By: Electronically signed by Varghese Santos MD 07/22/25 1335 EXAMINATION: XR CHEST CLINICAL INFORMATION: chest tightness COMPARISON: None available. TECHNIQUE: 2 views of the chest were obtained. FINDINGS: No significant abnormality is noted involving the heart, lungs, mediastinum, bony thorax or soft tissues. XR/XR chest 2V IMPRESSION: No acute disease Electronically signed by: Jose Rogers MD 07/22/2025 10:29 AM EDT RP Dictated By: Jose Rogers MD Signed By: Electronically signed by Jose Rogers MD 07/22/25 1029 I independently interpreted this EKG and am in agreement with the below findings: Vent. Rate: 61 BPM Atrial Rate: 61 BPM P-R Int: 158 ms QRS Dur: 104 ms QT Int: 430 ms P-R-T Axes: 12 71 37 degrees QTcB Int: 432 ms Sinus rhythm with Premature atrial complexes Otherwise normal ECG No previous ECGs available Electronically Signed By: ZHANG OLIVA MD Dictated By: Zhnag Oliva MD Signed By: Electronically signed by Zhang Oliva MD 07/22/25 1303 Radiology Impression Discussion of test interpretation with radiology: I have reviewed the radiologist's reading. Critical Care Time Critical Care Time Critical Care Time: Yes Total Critical Care Time: 38 Attestation: I spent 38 minutes of Critical Care Time with this patient. This does not include time spent on separately reported billable procedures. Discharge Plan Discharge Clinical Impression: Headache, Orthostasis, Hypertension Patient Disposition: Admitted As Inpatient
[2025-07-22 10:08] LABS: MANUAL DIFF FLAG NO
[2025-07-22 10:09] LABS: Hematocrit 36.1 % (37.0-47.0); Hemoglobin 11.9 g/dl (12.0-16.0); Imm Gran Abs Auto 0.02 X10*3/uL (0.00-0.03); Imm Gran Pct Auto 0.4 % (0.0-0.4); Lymphocytes Absolute Auto 1.4 X10*3/uL (1.2-4.9); Mean Corpuscular HGB Conc 33.0 g/dl (31.0-35.0); Mean Corpuscular Hemoglobin 29.1 pg (27.0-33.0); Mean Corpuscular Volume 88.3 fL (80.0-98.0); NRBC Abs Auto 0.000 X10*3/uL (0.0-0.012); NRBC Pct Auto 0.0 /100WBC (0.0-0.2); Platelet Count 248 X10*3/uL (160-400); Red Blood Count 4.09 X10*6/uL (4.20-5.50); White Blood Count 5.4 X10*3/uL (4.8-10.8)
--- OUTSIDE RECORDS SUMMARY | 2025-07-22 10:17 | XMS_ITS | Clinical Summary ---
Author Organization [facility] Address [address] [place] [address] Phone Care Team Providers Care Manager Environmental Affairs Name Role Phone Sesar Noble MD Primary Care Provider [phone]- [phone] Allergies No known active allergies Medications lisinopriL [...] care for your loved ones. For example, school childcare attendant or elderly care for an older adult? [...] mmol/L LAB CHEMISTRY METHOD 01/22/2025 2:30 PM [facility] Potassium 4.1 3.5 - 5.5 mmol/L LAB CHEMISTRY METHOD 01/22/2025 2:30 PM [facility] Chloride 105 96 - 110 mmol/L LAB CHEMISTRY METHOD 01/22/2025 2:30 PM [facility] CO2 25 21 - 32 mmol/L LAB CHEMISTRY METHOD 01/22/2025 2:30 PM [facility] Anion Gap 8 3 - 11 LAB CHEMISTRY METHOD 01/22/2025 2:30 PM [facility] Glucose 92 70 - 100 mg/dL LAB CHEMISTRY METHOD 01/22/2025 2:30 PM [facility] BUN 11 5 - 25 mg/dL LAB CHEMISTRY METHOD 01/22/2025 2:30 PM [facility] Creatinine 0.54 0.50 - 1.10 mg/dL LAB CHEMISTRY METHOD 01/22/2025 2:30 PM [facility] eGFR 121 >=60 mL/min/1. 73m2 LAB CHEMISTRY METHOD 01/22/2025 2:30 PM [facility] Comment:Calculation based on the Chronic Kidney Disease Epidemiology Collaboration (CKD-EPI) equation refit without adjustment for race. BUN/Creatinine Ratio 20.4 LAB CHEMISTRY METHOD 01/22/2025 2:30 PM [facility] Calcium 8.9 8.5 - 10.5 mg/dL LAB CHEMISTRY METHOD 01/22/2025 2:30 PM [facility] AST (SGOT) 28 10 - 42 unit/L LAB CHEMISTRY METHOD 01/22/2025 2:30 PM [facility] ALT (SGPT) 43 10 - 60 unit/L LAB CHEMISTRY METHOD 01/22/2025 2:30 PM [facility] Alkaline Phosphatase 72 42 - 121 unit/L LAB CHEMISTRY METHOD 01/22/2025 2:30 PM [facility] Total Protein 6.9 6.0 - 8.0 g/dL LAB CHEMISTRY METHOD 01/22/2025 2:30 PM [facility] Albumin 3.6 3.2 - 5.0 g/dL LAB CHEMISTRY METHOD 01/22/2025 2:30 PM [facility] Total Bilirubin 0.5 0.0 - 1.4 mg/dL LAB CHEMISTRY METHOD 01/22/2025 2:30 PM [facility] Blood Venous blood specimen / Unknown Venipuncture / Unknown 01/22/2025 1:48 PM EST 01/22/2025 1:58 PM EST us Phan Moran MD LAB BLOOD ORDERABLES Final Result [facility] [address] [place] [address], from Last 3 Months or Most Recently Relevant to Health Maintenance Insurance [facility] [employer] Advance Directives * Full [...] currently active code status orders. Care Teams Manager Environmental Affairs Relationship Specialty Start Date End Date Sesar Noble MD [facility] [address] [facility] [id number] PCP - General Internal Medicine 01/22/25
[2025-07-22 10:27] LABS: Alanine Aminotransferase 19 U/L (0-31); Albumin Level 3.9 g/dL (3.5-5.0); Alkaline Phosphatase 49 U/L (39-117); Anion Gap 10 (12-20); Aspartate Amino Transferase 19 U/L (5-31); Blood Urea Nitrogen 13 mg/dL (9-16); Calcium 8.4 mg/dL (8.4-10.2); Carbon Dioxide 22 mmol/L (22-29); Chloride 110 mmol/L (96-108); Creatinine Clr Calc Pharmacy 162.1; Estimated Glomerular Filt Rate > 60; Potassium 4.2 mmol/L (3.3-5.1); Sodium 138 mmol/L (135-145); Total Protein 6.3 g/dL (6.5-8.0)
[2025-07-22 10:36] LABS: Troponin-I High Sensitivity < 2.7 ng/L (<3.5-17.0)
[2025-07-22 10:43] LABS: COVID-19 Test Negative (Negative); IDNOW Serial# 08D9AD1C
[2025-07-22 10:45] LABS: IDNOW Serial# 6674DD1D; Influenza B2 Negative (Negative)
[2025-07-22] MEDS: iohexoL 350 MG/ML 100 ML INFUS..BTL IV (12:21)
--- NOTE | 2025-07-22 14:21 | P.HPHOSP_ITS ---
History of Present Illness Date of Service: 07/22/25 Attending physician on admission: Alexy Manjarrez Chief Complaint: dizziness, headache, chest pain This is a 39-year-old male who presents to the emergency department with multiple complaints. She says that she has been feeling dizzy since yesterday worse with standing. She has had associated chest tightness which is unchanged with deep inspiration and reproducible on palpation. She denies any associated cough. She also reports headache with mild photophobia. She denies any history of migraine but does report family history of migraine. She also has neck and right shoulder pain which appears chronic when reviewing chart. She reports she had multiple episodes of vomiting yesterday, she denies any associated abdominal pain or diarrhea. On arrival to the emergency department her blood pressure was elevated at 2 19/85. This improved to 163/87 with no medical intervention. Chest x-ray was unremarkable, troponin < 2.7, viral serology negative. Head and neck CTA negative. She received a dose of IV morphine for pain control. Orthostatic blood pressures were checked and were noted to be positive with a drop from 172/73 lying to 148/63 standing. She was also noted to have bradycardia with HR in the 50s. She received 1L of fluid in the emergency department in the decision was made to admit her for further management. Review of Systems 2 Review of Systems: Yes all other systems are reviewed and are negative Constitutional: Constitutional: Denies chills and Denies fever(s) ENT: Reports dizziness Cardiovascular: Cardiovascular: Reports chest pain and Denies dyspnea Respiratory: Respiratory: Denies dyspnea Gastrointestinal: Gastrointestinal: Denies abdominal pain, Denies diarrhea, Reports nausea and Reports vomiting (yesterday, now resolved) Neurologic: Reports dizziness PMFSH Medical History Bilateral hand numbness Back pain with right-sided sciatica Follow-up exam, 3-6 months since previous exam Morbid obesity with BMI of 45.0-49.9, adult Lower abdominal pain Contact dermatitis Hypertension Family History Mother Breast cancer Hypertension Sister Type 2 diabetes mellitus Father Myocardial infarction Brother Myocardial infarction, Onset Age: 40 Surgical History Previous section Hx of cholecystectomy Hx of appendectomy Social History Household Members: Family Housing: Apartment Alcohol intake: current Alcohol intake frequency: holidays/special occasions only Patient Tobacco Use Status: Former Tobacco user Tobacco use type: Cigarette Cigarettes Per Day: 2 Smoked in Last 30 Days: Yes e-Cigarette/Vaping Use: Never Used Second Hand Smoke Exposure: Yes Use of substances other than those prescribed or required for medical reasons: Yes Substance Use Type: Marijuana Substance Use Frequency: Occasionally Last Used Substance: Days (ago) Advance Directives: No Advance Directives Information Provided: Yes service: No Current occupational status: employed Cognitive needs: No Hearing needs: No Vision needs: Yes (Glasses) Meds Allergies Allergy/AdvReac Type Severity Reaction Status Date / Time No Known Allergies Allergy Verified 07/22/25 09:54 Home Medications ?Medication ?Instructions ?Recorded ?Confirmed ?Last Taken ?Type lisinopril 10 mg tablet 10 mg PO DAILY 02/03/2507/0207/22/25 History acetaminophen 325 mg tablet 650 mg PO Q6H PRN Fever Or Pain 07/22/25 07/22/25 Unknown History Physical Exam 2 Vital Signs and Narrative: Vital Signs: Last Vital Signs Temp 98.1 F 07/22/25 12:46 Pulse 52 07/22/25 12:46 Resp 14 07/22/25 12:46 BP 160/67 H 07/22/25 12:46 Pulse Ox 100 07/22/25 12:46 O2 Del Method Room Air 07/22/25 12:46 BMI result Body Mass Index 45.7 Const: General: cooperative, comfortable, no acute distress, alert and awake Nutritional Appearance: obese Orientation/consciousness: patient oriented x3 Resp: Effort & Inspection: normal respiratory effort, able to speak in complete sentences, no respiratory distress and no use of accessory muscles Cardio: Rate: bradycardic GI: Inspection: No distended and Yes obesity Palpation (GI): Soft to palpation and nontender Neuro: General: patient oriented x3, moves all extremities and CN's II-XI intact bilaterally Results Labs 07/22/25 10:02 07/22/25 10:02 Labs: Laboratory Results - last 24 hr 07/22/25 07/22/25 10:02 10:24 MCV 88.3 MCH 29.1 MCHC 33.0 RDW 14.2 Plt Count 248 MPV 9.8 Immature Gran % (Auto) 0.4 Neut % (Auto) 62.1 Lymph % (Auto) 25.4 [place] % (Auto) 7.7 Eos % (Auto) 4.0 Baso % (Auto) 0.4 Lymph # (Auto) 1.4 [place] # (Auto) 0.4 Eos # (Auto) 0.2 Baso # (Auto) 0.0 Abs Immat Gran (auto) 0.02 Absolute Neuts (auto) 3.4 Absolute Nucleated RBC 0.000 Nucleated RBC % (auto) 0.0 Anion Gap 10 L Estim Creat Clear Calc 162.1 Estimated GFR > 60 Random Glucose 104 Calcium 8.4 Total Bilirubin 0.2 AST 19 ALT 19 Alkaline Phosphatase 49 Total Protein 6.3 L Albumin 3.9 Beta HCG, Quant < 2 COVID-19 (ROCIO) Negative COVID-19 Clin Com See Note Influenza Type A (MARIA LUISA) Negative Influenza Type B (MARIA LUISA) Negative Influenza A & B Note See Note Imaging Radiologist's Impressions: Impressions Chest X-Ray 07/22/25 09:11 IMPRESSION: No acute disease Electronically signed by: Jose Rogers MD 07/22/2025 10:29 AM EDT RP Head/Neck CTA 07/22/25 11:44 IMPRESSION: CT of the head: No acute intracranial findings. CTA of the head: No intracranial aneurysm, arteriovenous malformation or vascular occlusion. CTA of the neck: No stenosis, occlusion or evidence of dissection of the extracranial carotid and vertebral arteries. Electronically signed by: Varghese Santos MD 07/22/2025 01:35 PM EDT RP Assessment and Plan (1) Orthostatic dizziness: Status: Acute Plan This is a 39-year-old female with a history of hypertension, chronic neck and back pain who presents to the emergency department with complaints of dizziness, headache and chest tightness found to have orthostatic hypotension Orthostatic hypotension supine hypertension received 1L NS Continue gentle IV fluid repeat orthostataic bp in am dizziness likely due to orthostatic hypotension CTA head/neck negative headache family h/o migraine fioricet prn Chest pain Most likely musculoskeletal versus costochondritis Pain reproducible on exam Troponin negative, EKG with no ischemic changes Sinus bradycardia Heart rate in 50s primarily Dizziness does not seem to be related to bradycardia will monitor on telemetry overnight vomiting resolved HTN hold lisinopril for now likely resume in am morbid obesity BMI 45.7 weight loss encouraged dvt ppx - boots Quality Stroke Does the patient have a stroke diagnosis?: No VTE Prior VTE?: No VTE Risk Level:: Medical - low VTE Device Contraindication: N/A - Device Ordered VTE Drug Contraindication: Treatment Not Indicated
--- NOTE | 2025-07-22 14:23 | PHA.MEDREC ---
Addendum entered by Michael Zendejas RPh 07/22/25 15:04: Reviewed by [facility] Original Note: Pharmacy Consult ? Medication Reconciliation Pharmacy has completed the medication reconciliation. Patient states she takes Lisinopril 10 mg daily, however last fill date was 01/20/25 for 90 days.
[2025-07-22 14:51] LABS: Free T4 (Free Thyroxine) 1.03 ng/dL (0.71-1.85); Thyroid Stimulating Hormone 0.65 uIU/mL (0.32-4.0)
[2025-07-22] MEDS: Lactated Ringers 1,000 ML 80 ML IVCONT (19:10)
--- NOTE | 2025-07-22 22:36 | PC.NURSE ---
Back documentation Other than HTN pt denies any Cardiac disease, PT does state that Family medical history has extensive cardiac issues. PT HR in the 40's currently fluctuating between mid 40's- 60, pt Hypertensive and still complaining of dizziness, provider JUSTIN Rivera aware.Orthos done on pt, pt complained of dizziness from sit to stand Provider Nicole aware of + Ortho results.
[2025-07-22] MEDS: 0.9 % Sodium Chloride Flush 3 ML SYRINGE IVFLUSH (23:30)
[2025-07-23] VITALS (7 sets, daily range): BP systolic 150–179; BP diastolic 58–84; PULSE 52–64; RESP 16–20; TEMP 36.6–36.8; O2SAT 98–100
--- NOTE | 2025-07-23 09:00 | MHC.CM.PN ---
CM met with Patient at bedside. Patient lives in an apartment with her and 2 children ages 3 & 9 years of age. Home self care is the goal and CM has initiated and will follow for dc planning. PCP is and will transport to home at time of dc.
[2025-07-23] MEDS: 0.9 % Sodium Chloride Flush 3 ML SYRINGE IVFLUSH (11:01)
[2025-07-23] MEDS: Butalb/Acetamin/Caff 50/325/40 TABLET 1 TAB PO (11:03)
--- NOTE | 2025-07-23 13:18 | P.DS_ITS ---
DS: Providers Provider Date of Service: 07/23/25 Date of admission: 07/22/25 13:59 Date of discharge: 07/23/25 Primary care physician: Sesar Noble MD DS: Diagnosis Discharge Diagnosis (1) Orthostatic dizziness: Status: Acute DS: Summary Hospital Course Hospital Course: 39-year-old male who presents to the emergency department with multiple complaints. She says that she has been feeling dizzy since yesterday worse with standing. She has had associated chest tightness which is unchanged with deep inspiration and reproducible on palpation. She denies any associated cough. She also reports headache with mild photophobia. She denies any history of migraine but does report family history of migraine. She also has neck and right shoulder pain which appears chronic when reviewing chart. She reports she had multiple episodes of vomiting yesterday, she denies any associated abdominal pain or diarrhea. On arrival to the emergency department her blood pressure was elevated at 2 19/85. This improved to 163/87 with no medical intervention. Chest x-ray was unremarkable, troponin < 2.7, viral serology negative. Head and neck CTA negative. She received a dose of IV morphine for pain control. Orthostatic blood pressures were checked and were noted to be positive with a drop from 172/73 lying to 148/63 standing. She was also noted to have bradycardia with HR in the 50s. She received 1L of fluid in the emergency depar tment in the decision was made to admit her for further management. Hospital Course Patient admitted to telemetry where monitor failed to demonstrate any acute dysrhythmias. Her blood pressures during her hospitalization range 160-170/60-80. Her presenting complaint no adjustments were made to her antihypertensive regimen. She has been asymptomatic throughout as requesting discharge. At this juncture she is medically acceptable for discharge. She has follow up with her PCP who can review blood pressures and treat as appropriate Time Attestation Discharge Coordination Time (in mins): 35 Quality: Safe Use of Opioids Does Pt have an Active Cancer Diagnosis on the Problem List?: No Quality: Stroke Does the patient have a stroke diagnosis?: No Physical Exam Vital Signs: Vital Signs: Last Vital Signs Temp 98.3 F 07/23/25 10:58 Pulse 53 07/23/25 10:58 Resp 20 07/23/25 10:58 BP 162/58 H 07/23/25 10:58 Pulse Ox 98 07/23/25 10:58 O2 Del Method Room Air 07/23/25 10:58 BMI result Body Mass Index 50.0 Const: Other: Awake alert no acute distress Resp: Other: Clear to auscultation bilaterally no rales rhonchi or wheezes Cardio: Other: No S4; positive S1-S2; no S3 murmurs rubs or gallops GI: Other: Soft nontender nondistended normoactive bowel sounds Neuro: Other: Cranial nerves 2-12 grossly intact bilaterally. Motor is 5/5 all extremities. Sensation is intact. Cognition is appropriate Extrem: Other: No edema bilaterally DS: Data Data Completed and Pending Labs on day of discharge: Laboratory Results - last 24 hr 07/22/25 10:02 TSH 0.65 Free T4 1.03 Beta HCG, Quant < 2 Discharge Plan Discharge Anticipated Discharge Date/Time: 07/23/25 13:15 Patient Disposition: Home, Self-Care Discharge Diagnosis: Orthostatic hypotension Referrals: Sesar Noble MD [Primary Care Provider, Internal Medicine] - 1 Week Discharge Medications: Continued acetaminophen 325 mg Tablet 650 mg PO Q6H PRN (Reason: Fever Or Pain) lisinopril 10 mg tablet 10 mg PO DAILY Discharge Orders: Discharge Order (Routine); Ordered 07/23/25 Ordered By: Alexy Manjarrez Diet: Advance to usual diet Activity on Discharge: As tolerated Stand Alone Forms: Patient Portal Discharge page Print Language: [place] Care Plan Goals: Resume all meds as taken prior to hospital Health Concerns: Your workup was completely negative including CTA of head and neck. Plan of Treatment: Follow up with the PCP next available Assessment: See discharge summary
--- NOTE | 2025-07-23 13:30 | MHC.CM.PN ---
Patient has bee medically cleared for dc to home today, self care.
--- NOTE | 2025-07-23 14:56 | PC.NURSE ---
1450 Pt alert oriented x4. SPANGLER well. Gait and balance are steady and pt report headache has resolved. Pt reports she no longer feels dizzy and is ready to be discharged home. Pt declined wheechair and verbalized she is fine to walk with . IV removed without complication dsd applied. Pt verbalized understanding of discharge instructions and all questions answered to patient's satisfaction. Pt discharged with family to home.
== END 2025-07-23 14:55 | disposition home or self-care (01) | DRG 204 ==
LOC: HO.ED 14:06 → HO.EDOVER 14:10 → HO.IMC 20:49
PROVIDERS: Physician Assistant Medical; Admitting Provider Physician Assistant Medical; Emergency Provider Emergency Medicine; PCP Internal Medicine; Visit Provider Hospitalist
DX: I95.1 Orthostatic hypotension (principal); I10 Essential (primary) hypertension; Z20.822 Contact with and (suspected) exposure to COVID-19; Z87.891 Personal history of nicotine dependence; Z79.899 Other long term (current) drug therapy
CPT/HCPCS: 36415; 70496; 70498; 71046; 80053; 84439; 84443; 84484; 84702; 85025; 87502; 87635; 93005; 99222; 99285; J0131; J2270; J2405; J2765; J7120; Q9967

== ENCOUNTER → 2025-07-22 09:43 | Outpatient (BNV) | payer OTHER, SELFPAY | PROVIDERS: PCP Internal Medicine; Visit Provider Internal Medicine Cardiovascular Disease | DX: I48.91 Unspecified atrial fibrillation (principal) | CPT/HCPCS: 93010 ==

== ENCOUNTER → 2025-07-22 13:59 | Outpatient (BNV) | payer OTHER, SELFPAY | PROVIDERS: Admitting Provider Physician Assistant Medical; Emergency Provider Emergency Medicine; PCP Internal Medicine; Visit Provider Physician Assistant Medical | DX: R42 Dizziness and giddiness (principal) | CPT/HCPCS: 99223 ==

== ENCOUNTER 2025-08-05 09:02 | Outpatient (AMB) | payer OTHER, SELFPAY ==
--- NOTE | 2025-08-05 09:08 | A.OFFVIS_ITS ---
Vital Signs 08/05/25 09:11 Height 5 ft 2 in Weight 251 lb BMI 45.9 Intake Visit Reasons: OV-B/L hand numbness. BUE RBL f/u Intake Note: Jose is a 39 year old female who presents today as a follow up BUE RBL for her bilateral hand numbness. At today's visit Patient states that the pain is worse than last visit, she states that the right side of her neck down to her hand is a constant dullache. She added that her left hand also has the constant dullache but now its radiating into her left elbow. Patient has been doing her own at home exercises to help relieve the pain and started taking Tylenol with arthritis relief about two weeks ago with no relief. Allergies No Known Allergies Allergy (Verified 08/05/25 09:12) Medication List - Last Reconciled 08/05/25 by Anastacia Arriaga MD acetaminophen 650 mg PO Q6H PRN lisinopril 10 mg PO DAILY HPI Comments Details: Started July 2024 as lump/pain right groin, started causing pain on right leg, but then past few months has radiated towards right shoulder. She also now has both hand numbness. She's had abdominal CT and has seen OBGYN. Now she thinks pain starts from right shoulder area, difficulty lifting right shoulder/arm. No problems with ROM on left side but also gets tingling there. Occasional lower back pain only. But still has right groin pain that radiates to toes. At times, can have numbness on right leg, not the foot. No past injuries. No PT. History of Vitamin D deficiency and HTN. 1. EMG shows left CTS mild. She's been wearing wrist splints both sides, at night and even at work. Requesting for referral to hand surgery. 2. right shoulder area/trapezius pain - same as last time, shoulder xray normal. 3. right hip xray normal - she says there is a 'bump' in the groin area Recent hospitalization 07/22- for headache and dizziness, unrelated to issues she is seeing me for. [facility] Medical History Bilateral hand numbness Back pain with right-sided sciatica Follow-up exam, 3-6 months since previous exam Morbid obesity with BMI of 45.0-49.9, adult Lower abdominal pain Contact dermatitis Hypertension Surgical History Previous section Hx of cholecystectomy Hx of appendectomy Family History Mother Breast cancer Hypertension Sister Type 2 diabetes mellitus Father Myocardial infarction Brother Myocardial infarction, Onset Age: 40 Social History Household Members: Spouse and Children Housing: Apartment Alcohol intake: current Alcohol intake frequency: holidays/special occasions only Patient Tobacco Use Status: Former Tobacco user Tobacco use type: Cigarette Cigarettes Per Day: 2 e-Cigarette/Vaping Use: Never Used Second Hand Smoke Exposure: Yes Substance Use Type: Marijuana service: No Current occupational status: employed Cognitive needs: No Hearing needs: No Vision needs: Yes (Glasses) Female Reproductive History Menstrual Age of Menarche: 15 Physical Exam Vital Signs: BMI result Body Mass Index 45.9 Constitutional: Patient appears to be in no acute distress, well nourished and well developed. Patient was appropriately conversant and oriented. Good historian. MSK: Inspection reveals appropriate head and neck positioning. Tightness noted on right upper trapezius. Tenderness over right biceps tendon insertion proximally. Cervical ROM was full. Spurling's sign negative. Bilateral shoulder, elbow and wrist ROM WNL. No ligamentous laxity or crepitance. No increased effusion. Positive right Shaw sign. Negative empty can sign on right. Positive right speed's test. No specific abnormalities or instability found on inspection and palpation of the spine and extremities. Lumbar ROM was full. There is some tenderness over right SI joint. Palpable 2 x 2 cm mass right lower quadrant, abdominal wall. Tender to touch. Negative SLR. Strength is 5/5 in all muscle groups tested. No increased tone noted. Neurological: Neurologic examination of the upper and lower extremities was nonfocal with intact sensation, muscle stretch reflexes and without focal motor deficits . Sullivan?s negative bilaterally. Babinski was down going bilaterally. Clonus was negative. Gait is non-antalgic without loss of balance. Results Reviewed Results Reviewed: EMG 06/29/25 IMPRESSION: 1. This is an abnormal study. 2. There is electrodiagnostic evidence for left mild median neuropathy at the w rist, still consistent with carpal tunnel syndrome. 3. There is no electrodiagnostic evidence for ulnar neuropathy, brachial plexopathy, or cervical radiculopathy. 4. No signs of median neuropathy on right. Ordering Physician: Anastacia Meneses Date of Service: 05/13/25 Procedure(s): XR shoulder RT min 2V Accession Number(s): [id number] cc: Anastacia Meneses; Sesar Noble MD~ EXAMINATION: XR SHOULDER, RIGHT CLINICAL INFORMATION: M79.18 - Myalgia, other site COMPARISON: None available. TECHNIQUE: AP and lateral views of the right shoulder. FINDINGS: No acute cortical disruption or malalignment. No lytic or blastic lesion. Normal joint spaces. XR/XR shoulder RT min 2V IMPRESSION: Normal x-ray. Electronically signed by: Wilian Miranda MD 05/13/2025 12:57 PM EDT RP Ordering Physician: Anastacia Meneses Date of Service: 05/13/25 Procedure(s): XR hip RT min 2V Accession Number(s): [id number] cc: Anastacia Meneses; Sesar Noble MD~ EXAMINATION: XR HIP, RIGHT CLINICAL INFORMATION: M25.551 - Pain in right hip COMPARISON: None available. TECHNIQUE: Two views of the right hip. FINDINGS: No acute cortical disruption or malalignment. No lytic or blastic lesion. Normal joint space, right coxofemoral joint. XR/XR hip RT min 2V IMPRESSION: Normal x-ray. Electronically signed by: Wilian Miranda MD 05/13/2025 12:57 PM EDT RP Assessment & Plan Assessment & Plan (1) Carpal tunnel syndrome on both sides: Code(s): G56.03 - Carpal tunnel syndrome, bilateral upper limbs Category: Medical Plan: Presents with symptoms for bilateral Carpal Tunnel Syndrome, although EMG showed left mild Carpal Tunnel Syndrome only. She has undergone conservative man agement including wrist splints. She would like to see hand surgery for discussion regarding surgery. (2) Myofascial pain: Code(s): M79.18 - Myalgia, other site Category: Medical Plan: Suspect most of her pain in the right shoulder is myofascial, particularly right upper trapezius. Some hint of tenderness over bicipital tendon insertion. Referring to physical therapy. We will also try trigger point injections, to be scheduled. (3) Biceps tendonitis on right: Code(s): M75.21 - Bicipital tendinitis, right shoulder Category: Medical (4) Lipoma of abdominal wall: Code(s): D17.1 - Benign lipomatous neoplasm of skin and subcutaneous tissue of trunk Category: Medical Plan: Question lipoma right lower quadrant abdominal wall, referring to General surgery to evaluate for possible excision (5) Sacroiliac joint dysfunction of right side: Code(s): M53.3 - Sacrococcygeal disorders, not elsewhere classified Category: Medical Plan: She also has some tenderness over right SI joint. We will continue to monitor this. Most likely send her for physical therapy for this area, after she completes physical therapy for upper back/shoulder. Plan Assessment and plan discussed with patient, and patient was agreeable. All questions were answered thoroughly. Anastacia Arriaga MD, BRIDGER Board Certified, [place] [employer] and [employer] (ABPMR) Board Certified, [place] [employer] Electro[employer] (ABEM) Orders: Orders PT Evaluation and Treatment Today M75.21 - Bicipital tendinitis, right shoulder, M79.18 - Myalgia, other site Referrals General Surgery Referral D17.1 - Benign lipomatous neoplasm of skin and s ubcutaneous tissue of trunk Hand Surgery Referral G56.03 - Carpal tunnel syndrome, bilateral upper limbs Coding Level of Care Code Est Pt Level 4 (87670) Complex EM visit Add On G2211 Diagnoses Carpal tunnel syndrome on both sides G56.03 Myofascial pain M79.18 Biceps tendonitis on right M75.21 Lipoma of abdominal wall D17.1 Sacroiliac joint dysfunction of right side M53.3
[2025-08-05 09:11] VITALS: BMI 45.9
--- OUTSIDE RECORDS SUMMARY | 2025-08-05 09:45 | XMS_ITS | Clinical Summary ---
Author Organization [facility] Address [address] [place] [address] Phone Care Team Providers Care Wardrobe Assistant Name Role Phone Sesar Noble MD Primary Care Provider [phone]- [phone] Allergies No known active allergies Medications lisinopriL [...] care for your loved ones. For example, childcare aide or elderly care for an older adult? [...] mmol/L LAB CHEMISTRY METHOD 01/22/2025 2:30 PM [facility] Potassium 4.1 3.5 - 5.5 mmol/L LAB CHEMISTRY METHOD 01/22/2025 2:30 PM [facility] Chloride 105 96 - 110 mmol/L LAB CHEMISTRY METHOD 01/22/2025 2:30 PM [facility] CO2 25 21 - 32 mmol/L LAB CHEMISTRY METHOD 01/22/2025 2:30 PM [facility] Anion Gap 8 3 - 11 LAB CHEMISTRY METHOD 01/22/2025 2:30 PM [facility] Glucose 92 70 - 100 mg/dL LAB CHEMISTRY METHOD 01/22/2025 2:30 PM [facility] BUN 11 5 - 25 mg/dL LAB CHEMISTRY METHOD 01/22/2025 2:30 PM [facility] Creatinine 0.54 0.50 - 1.10 mg/dL LAB CHEMISTRY METHOD 01/22/2025 2:30 PM [facility] eGFR 121 >=60 mL/min/1. 73m2 LAB CHEMISTRY METHOD 01/22/2025 2:30 PM [facility] Comment:Calculation based on the Chronic Kidney Disease Epidemiology Collaboration (CKD-EPI) equation refit without adjustment for race. BUN/Creatinine Ratio 20.4 LAB CHEMISTRY METHOD 01/22/2025 2:30 PM [facility] Calcium 8.9 8.5 - 10.5 mg/dL LAB CHEMISTRY METHOD 01/22/2025 2:30 PM [facility] AST (SGOT) 28 10 - 42 unit/L LAB CHEMISTRY METHOD 01/22/2025 2:30 PM [facility] ALT (SGPT) 43 10 - 60 unit/L LAB CHEMISTRY METHOD 01/22/2025 2:30 PM [facility] Alkaline Phosphatase 72 42 - 121 unit/L LAB CHEMISTRY METHOD 01/22/2025 2:30 PM [facility] Total Protein 6.9 6.0 - 8.0 g/dL LAB CHEMISTRY METHOD 01/22/2025 2:30 PM [facility] Albumin 3.6 3.2 - 5.0 g/dL LAB CHEMISTRY METHOD 01/22/2025 2:30 PM [facility] Total Bilirubin 0.5 0.0 - 1.4 mg/dL LAB CHEMISTRY METHOD 01/22/2025 2:30 PM [facility] Blood Venous blood specimen / Unknown Venipuncture / Unknown 01/22/2025 1:48 PM EST 01/22/2025 1:58 PM EST us Phan Moran MD LAB BLOOD ORDERABLES Final Result [facility] [address] [place] [address], from Last 3 Months or Most Recently Relevant to Health Maintenance Insurance [facility] Advance Directives * Full Code [...] currently active code status orders. Care Teams Wardrobe Assistant Relationship Specialty Start Date End Date Sesar Noble MD [facility] [address] [facility] [address] PCP - General Internal Medicine 01/22/25
== END 2025-08-05 09:46 | disposition home or self-care (01) ==
LOC: HO.HOS 09:02
PROVIDERS: PCP Internal Medicine; Visit Provider Physical Medicine & Rehabilitation
DX: G56.03 Carpal tunnel syndrome, bilateral upper limbs (principal); M79.18 Myalgia, other site; M75.21 Bicipital tendinitis, right shoulder; D17.1 Benign lipomatous neoplasm of skin and subcutaneous tissue of trunk; M53.3 Sacrococcygeal disorders, not elsewhere classified
CPT/HCPCS: 99214

== ENCOUNTER → 2025-08-05 09:02 | Outpatient (BNVA) | payer OTHER, SELFPAY | PROVIDERS: PCP Internal Medicine; Visit Provider Physical Medicine & Rehabilitation | DX: I10 Essential (primary) hypertension (principal); Z79.899 Other long term (current) drug therapy; G56.03 Carpal tunnel syndrome, bilateral upper limbs; M79.18 Myalgia, other site; D17.1 Benign lipomatous neoplasm of skin and subcutaneous tissue of trunk; M53.3 Sacrococcygeal disorders, not elsewhere classified; M75.21 Bicipital tendinitis, right shoulder | CPT/HCPCS: 99212 ==

== ENCOUNTER 2025-08-05 12:50 | Outpatient (AMB) | payer OTHER, SELFPAY ==
--- NOTE | 2025-08-05 12:54 | A.OFFPC_ITS ---
Vital Signs 08/05/25 12:59 Height 5 ft 2 in Weight 262 lb 4 oz BMI 48.0 BP 130/80 Blood Pressure Location Lt brachial Position Sitting Pulse 71 Pulse Source Pulse Oximeter Temp 97.3 F Temp Source Temporal Artery Scan Pulse Oximetry (%) 99 Oxygen Delivery Method Room Air Intake Visit Reasons: [facility] 07/23 Intake Note: Patient is here for hospital discharge follow up. Patient was discharged from [facility] on 07/23/25. 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 Patient was admitted at [facility] on 07/22 - 07/23 for an evaluation and treatment of Orthostatic Hypotension and dizziness. Pt continues to have some chest tightness and headaches. The review of her BP Log shows well control Blood Pressure readings. She is currently on Lisinopril 10 mg. She does have an appointment with Chief Nurse. Pt also has an appointment with Kidney Specialist. Pt has chronic back pain with right sided sciatica Pain - currently receiving Injections through Pain clinic. [facility] Medical History Bilateral hand numbness Back pain with right-sided sciatica Follow-up exam, 3-6 months since previous exam Morbid obesity with BMI of 45.0-49.9, adult Lower abdominal pain Contact dermatitis Hypertension Surgical History Previous section Hx of cholecystectomy Hx of appendectomy Family History Mother Breast cancer Hypertension Sister Type 2 diabetes mellitus Father Myocardial infarction Brother Myocardial infarction, Onset Age: 40 Social History Household Members: Spouse and Children Housing: Apartment Alcohol intake: current Alcohol intake frequency: holidays/special occasions only Patient Tobacco Use Status: Former Tobacco user Tobacco use type: Cigarette Cigarettes Per Day: 2 e-Cigarette/Vaping Use: Never Used Second Hand Smoke Exposure: Yes Substance Use Type: Marijuana service: No Current occupational status: employed Cognitive needs: No Hearing needs: No Vision needs: Yes (Glasses) Female Reproductive History Menstrual Age of Menarche: 15 Questionnaire Thrive Questionnaire Date Thrive assessed: 06/02/25 I am a: Patient What is your living situation today?: I have a steady place to live Within the past 12 months, did the food you bought not last and you didn't have the money to get more?: Never true Within the past 12 months, did you worry whether your food would run out before you got money to buy more?: Never true Do you have trouble paying for medicines?: I choose not to answer this question Do you have trouble getting transportation to medical appointments?: I choose not to answer this question Do you have trouble paying your heating and electricity bill?: I choose not to answer this question Do you have trouble taking care of your child, family member or friend?: I choose not to answer this question Do you have trouble with day-to-day activities such as bathing, preparing meals, shopping, managing finances, etc.?: Yes Are you currently unemployed and looking for a job?: No Are you interested in more education?: No Currently or been in a relationship where the following occur: No concerns reported THRIVE Score: 0 LEVI-7 AMB Questionnaire LEVI-7 Date LEVI - 7 assessed: 01/20/25 Source: Developed by Drs. Murphy Hall, Yolanda Dickinson, Duy Carlton and colleagues, with an educational aaliyah from [employer]. Review of Systems Const All systems reviewed & are unremarkable except as noted in HPI and below Physical exam (Primary Care) Vital Signs: Last Vital Signs Temp 97.3 F 08/05/25 12:59 Pulse 71 08/05/25 12:59 BP 130/80 08/05/25 12:59 Pulse Ox 99 08/05/25 12:59 Oxygen Delivery Method Room Air 08/05/25 12:59 BMI result Body Mass Index 48.0 Tobacco/Smoking Status: Tobacco use Status Tobacco use date assessed 08/05/25 08/05/25 13:03 Patient Tobacco Use Status Former Tobacco user 08/05/25 12:54 Tobacco use type Cigarette 08/05/25 12:54 e-Cigarette/Vaping Use Never Used 08/05/25 12:54 Thrive Assessment: Date of Thrive Assessment Date Thrive assessed 06/02/25 08/05/25 12:54 Currently or been in a relationship where the following occur: No concerns reported Const General: no acute distress Nutritional Appearance: obese morbidly obese Orientation/consciousness: patient oriented x3 Resp Effort & Inspection: normal respiratory effort Auscultation: clear to auscultation bilaterally Cardio Heart sounds: S1 normal heart sound present and S2 normal heart sound present Neuro General: patient oriented x3, gait normal and moves all extremities Psych Speech and movement: Normal speech and movement present Coding Level of Care Code Est Pt Level 4 (52868) Diagnoses Hypertension I10 Hypertension type: primary hypertension Time Spent (min) 20 Assessment & Plan Assessment & Plan (1) Hypertension: Code(s): I10 - Essential (primary) hypertension Category: Medical Qualifiers: Hypertension type: primary hypertension Plan: Continue on Lisinopril 10 mg - BP well controlled. F/U with Cardiology as scheduled. Advised DASH Diet, weight loss and exercise. Medications: New lisinopril 10 mg PO DAILY 30 tabs 2RF I10 - Essential (primary) hypertension
[2025-08-05 12:59] VITALS: BP 130/80; PULSE 71; TEMP 36.3; O2SAT 99; BMI 48.0
== END 2025-08-05 13:23 | disposition home or self-care (01) ==
LOC: HO.HMCH 12:51
PROVIDERS: PCP Internal Medicine; Visit Provider Nurse Practitioner Family
DX: I10 Essential (primary) hypertension (principal)

== ENCOUNTER 2025-08-22 15:03 | Outpatient (AMB) | payer OTHER, SELFPAY ==
[2025-08-22 15:15] VITALS: BMI 47.9
--- NOTE | 2025-08-22 15:15 | A.OFFVIS_ITS ---
Vital Signs 08/22/25 15:15 Height 5 ft 2 in Weight 262 lb BMI 47.9 Intake Visit Reasons: [facility]- Bilateral Hand Numbness & Tingling, EMG done Intake Note: Jose is a 39 year old right hand dominant female who presents today as a New Patient for evaluation of Bilateral Hand Numbness & Tingling. 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 Patient reports symptoms interrupt her sleep. Denies finger locking. She is wearing hand braces, bilaterally, for work and sleep, without relief. Reports history of Left Carpal Tunnel Release, at [employer]. Denies any prior injuries to either hand or surgeries to the right hand. 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 IMPRESSION 06/29/25: 2. There is electrodiagnostic evidence for left mild median neuropathy at the wrist, still consistent with carpal tunnel syndrome. 3. There is no electrodiagnostic evidence for ulnar neuropathy, brachial plexopathy, or cervical radiculopathy. 4. No signs of median neuropathy on right. Allergies No Known Allergies Allergy (Verified 08/22/25 15:16) HPI HPI [facility]- Bilateral Hand Numbness & Tingling, EMG done: Details: Jose is a 39 year old right hand dominant female who presents today as a New Patient for evaluation of Bilateral Hand Numbness & Tingling. 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 Patient reports symptoms interrupt her sleep. Denies finger locking. She is wearing hand braces, bilaterally, for work and sleep, without relief. Reports history of Left Carpal Tunnel Release, at [employer]. Denies any prior injuries to either hand or surgeries to the right hand. 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 IMPRESSION 06/29/25: 2. There is electrodiagnostic evidence for left mild median neuropathy at the wrist, still consistent with carpal tunnel syndrome. 3. There is no electrodiagnostic evidence for ulnar neuropathy, brachial plexopathy, or cervical radiculopathy. 4. No signs of median neuropathy on right. [facility] Medical History Bilateral hand numbness Back pain with right-sided sciatica Follow-up exam, 3-6 months since previous exam Morbid obesity with BMI of 45.0-49.9, adult Lower abdominal pain Contact dermatitis Hypertension Surgical History Previous section Hx of cholecystectomy Hx of appendectomy Family History Mother Breast cancer Hypertension Sister Type 2 diabetes mellitus Father Myocardial infarction Brother Myocardial infarction, Onset Age: 40 Social History (Updated 08/22/25 @ 15:30 by JETHRO Carrillo) Household Members: Spouse and Children Housing: Apartment Alcohol intake: current Alcohol intake frequency: holidays/special occasions only Patient Tobacco Use Status: Former Tobacco user Tobacco use type: Cigarette Cigarettes Per Day: 2 e-Cigarette/Vaping Use: Never Used Second Hand Smoke Exposure: Yes Substance Use Type: Marijuana service: No Current occupational status: employed 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 Good APB muscle firing and good finger cross. Vascular: Capillary refill brisk. ROM: Patient can make a fist and extend all their digits. Skin: No lacerations or abrasions noted. General: No ecchymosis. No erythema or evidence of infection. Assessment & Plan Assessment & Plan (1) Numbness and tingling in both hands: Code(s): R20.0 - Anesthesia of skin; R20.2 - Paresthesia of skin Category: Medical (2) Left carpal tunnel syndrome: Code(s): G56.02 - Carpal tunnel syndrome, left upper limb Category: Medical Plan 1. Bilateral hand numbness and tingling Carpal tunnel syndrome on the left, nothing on the right With dense numbness in bilateral hands Patient is educated about this condition Patient is educated about the typical treatment course At this time, I feel it is most prudent to refer the patient to Dr. Haynes for determination of whether surgical intervention of the right hand is indicated even with negative EMG, as the patient is expressing significant concern with her symptoms Patient will follow-up with Dr. Haynes in 2-3 weeks for discussion of further treatment options, sooner with any acute concerns Coding Level of Care Code Est Pt Level 3 (01903) Diagnoses Numbness and tingling in both hands R20.0; R20.2 Left carpal tunnel syndrome G56.02
--- OUTSIDE RECORDS SUMMARY | 2025-08-22 17:31 | XMS_ITS | Clinical Summary ---
Demographics Address [address] [place] [id number] Mobile Phone Home Phone Email Address Email Address Preferred Language en Marital Status
== END 2025-08-22 16:01 | disposition home or self-care (01) ==
LOC: HO.HOS 15:04
PROVIDERS: PCP Internal Medicine
DX: R20.0 Anesthesia of skin (principal); R20.2 Paresthesia of skin; G56.02 Carpal tunnel syndrome, left upper limb
CPT/HCPCS: 99213

== ENCOUNTER → 2025-08-22 15:03 | Outpatient (BNVA) | payer OTHER, SELFPAY | PROVIDERS: PCP Internal Medicine | DX: G56.02 Carpal tunnel syndrome, left upper limb (principal); R20.0 Anesthesia of skin; R20.2 Paresthesia of skin | CPT/HCPCS: 99212 ==

== ENCOUNTER 2025-09-06 14:22 | Outpatient (AMB) | payer OTHER, SELFPAY ==
--- NOTE | 2025-09-06 14:34 | MHC.OFFVIS ---
Vital Signs 09/06/25 14:45 Height 5 ft 2 in Weight 263 lb BMI 48.1 BP 189/100 H Blood Pressure Location Lt brachial Position Sitting Intake Visit Reasons: lipoma right lower quadrant abdominal wall Intake Note: Patient is seen in office for evaluation of lipoma right lower quadrant abdominal wall. 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 She 1st noted the lump approximately 1 year ago and notes pain which seems to come and go. The lump seems to be increasing in size over the past year. Pain seems to increase with coughing, having a bowel movement or with lifting/straining but improves when in the supine position. She reports previous x2 and appendectomy. She reports some nausea but denies any vomiting. A CT abdomen and pelvis was reviewed and does seem to indicate a lump in the subcutaneous tissue corresponding to the palpable lump. No hernias are identified by CT. [facility] Medical History Hypertension Bilateral hand numbness Back pain with right-sided sciatica Follow-up exam, 3-6 months since previous exam Morbid obesity with BMI of 45.0-49.9, adult Lower abdominal pain Contact dermatitis Hypertension Surgical History Previous section Hx of cholecystectomy Hx of appendectomy Family History Mother Breast cancer Hypertension Sister Type 2 diabetes mellitus Father Myocardial infarction Brother Myocardial infarction, Onset Age: 40 Social History Household Members: Spouse and Children Housing: Apartment Alcohol intake: current Alcohol intake frequency: holidays/special occasions only Patient Tobacco Use Status: Former Tobacco user Tobacco use type: Cigarette Cigarettes Per Day: 2 e-Cigarette/Vaping Use: Never Used Second Hand Smoke Exposure: Yes Substance Use Type: Marijuana service: No Current occupational status: employed 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, 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 Cognitive needs: No Hearing needs: No Vision needs: Yes (Glasses) Female Reproductive History Menstrual Age of Menarche: 15 Review of Systems Const All systems reviewed & are unremarkable except as noted in HPI and below Physical Exam Vital Signs: Last Vital Signs BP 189/100 H 09/06/25 14:45 BMI result Body Mass Index 48.1 Const General: cooperative and no acute distress Nutritional Appearance: well nourished Orientation/consciousness: patient oriented x3 Limitations: no limitations HEENT Head: Yes normocephalic and Yes atraumatic Ears: hearing grossly normal bilaterally Resp Effort & Inspection: normal respiratory effort, no audible wheezes, no cough and no respiratory distress Cardio Jugular venous distension: no JVD GI Other: Palpable mass noted in the right lower quadrant just above the pannus which seems to increase in size with Valsalva but does not reduce. Inspection: Yes normal to inspection and Yes Abdominal panniculus present Palpation (GI): Soft to palpation, Tenderness to palpation present (GI) in the RLQ, no guarding, not rigid and No hepatosplenomegaly present Percussion: Yes normal to percussion Auscultation: normal bowel sounds Abdomen image:  1. Site of palpable mass right lower quadrant Skin Other: Warm, dry, no rash Neuro General: patient oriented x3 Extrem General: Yes no clubbing, cyanosis or edema Results Reviewed Results Reviewed: CT abdomen/pelvis: Subcutaneous mass in the right lower quadrant corresponding to the palpable mass. Assessment & Plan Assessment & Plan (1) Abdominal wall mass of right lower quadrant: Code(s): R19.03 - Right lower quadrant abdominal swelling, mass and lump Category: Medical Plan 39-year-old female patient presenting with a palpable mass in the right lower quadrant which has been present for approximately 1 year in his gradually increasing in size. The patient reports pain especially when straining to urinate or have a bowel movement. On examination the patient has a fairly large palpable mass measuring 3-4 cm in diameter. Review of the CT does reveal a subcutaneous mass which corresponds to the palpable mass. This does not appear to be a lipoma but may actually be an endometrial implant from her prior section which would explain the episodic increase in pain. I would recommend excision of this palpable mass as a short-stay surgery. Reviewed the procedure, risks, and alternatives in detail and she consents to excision of the right lower quadrant abdominal mass. Coding Level of Care Code New Pt Level 4 (74807) Diagnoses Abdominal wall mass of right lower quadrant R19.03
[2025-09-06 14:45] VITALS: BP 189/100; BMI 48.1
--- OUTSIDE RECORDS SUMMARY | 2025-09-06 17:44 | XMS_ITS | Clinical Summary ---
Author Organization [facility] Address [address] [place] [address] Phone Care Team Providers Care Veterinary Technologist Name Role Phone Sesar Noble MD Primary Care Provider +1- [phone] Allergies No known active allergies Medications lisinopriL [...] care for your loved ones. For example, exceptional children teacher or elderly care for an older [...] Date Recorded What is your living situation? Unrecognized valu e 01/22/2025 Comments Unknown Sex and Gender Information [...] Cervical Cancer Screening: P ap Smear 2007 HPV Vaccines (1 - 3-dose SCD M series) 2013 DTaP,Tdap,and Td Vaccines (2 - Td or Tdap) 04/09/2022 04/09/2012 COVID-19 Vaccine (3 - Modern a risk series) 04/18/2022 03/21/2022, 02/21/2022 Cholesterol Screening (Lipid Panel) 11/03/2022 HIV Screening 11/03/2022 Hepatitis C Screening 11/03/2022 Depression Screening 12/01/2024 Influenza Vaccine (#1) 2025 Hypertension/CHF/CAD Annual BMP Blood Test 01/22/2026 01/22/2025 Social Influencers of Health Screening 01/22/2026 01/22/2025 RSV Immunization Adult Patients (1 - 1-dose 75+ series) 2061 HIB Vaccines Aged Out No longer eligi [...] MD LAB BLOOD ORDERABLES Final Result [facility] [address] [place] [address], from Last 3 Months or Most Recently Relevant to Health Maintenance Insurance [facility] [place] [address] Advance Directives * Full Code - Default [...] currently active code status orders. Care Teams Veterinary Technologist Relationship Specialty Start Date End Date Sesar Noble MD [facility] [address] [facility] [address] PCP - General Internal Medicine 01/22/25
== END 2025-09-06 15:04 | disposition home or self-care (01) ==
LOC: HO.HGS 14:22
PROVIDERS: PCP Internal Medicine; Visit Provider Surgery
DX: R19.03 Right lower quadrant abdominal swelling, mass and lump (principal)
CPT/HCPCS: 99204

== ENCOUNTER → 2025-09-06 14:22 | Outpatient (BNVA) | payer OTHER, SELFPAY | PROVIDERS: PCP Internal Medicine; Visit Provider Surgery | DX: R19.03 Right lower quadrant abdominal swelling, mass and lump (principal) | CPT/HCPCS: 99202 ==

== ENCOUNTER 2025-09-07 14:25 | Outpatient (AMB) | payer OTHER, SELFPAY ==
--- NOTE | 2025-09-07 14:49 | MHC.OFFVIS ---
Vital Signs 09/07/25 14:50 Height 5 ft 2 in Weight 263 lb BMI 48.1 Intake Visit Reasons: OV- Bilateral Hand Numbness & Tingling, EMG done Intake Note: Jose is a 39 year old right hand dominant female who presents today for follow up of Bilateral Hand Numbness & Tingling. Patient was last seen on 08/22/25 by JUSTIN Matute. At that time EMG was reviewed, showing Carpal Tunnel Syndrome on the left, nothing on the right, with dense numbness in bilateral. Patient states she is also having numbness in her small finger on both her hands but mainly her right hand. IMPRESSION: 1. This is an abnormal study. 2. There is electrodiagnostic evidence for left mild median neuropathy at the wrist, still consistent with carpal tunnel syndrome. 3. There is no electrodiagnostic evidence for ulnar neuropathy, brachial plexopathy, or cervical radiculopathy. 4. No signs of median neuropathy on right Allergies No Known Allergies Allergy (Verified 09/07/25 14:52) HPI HPI OV- Bilateral Hand Numbness & Tingling, EMG done: Details: Jose is a 39 year old right hand dominant woman who presents for a NCS review of her bilateral hand numbness & pain. Her chief complaint today is of tingling & some pain in her left arm, which radiated from her dorsal lateral elbow, down her dorsal forearm and into her dorsal hand. This is accompanied by occasional numbness & tingling in her left ring & small fingers. She denies having trouble in the left thumb index or middle fingers. 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 Patient says today that she had a RIGHT carpal tunnel release done at [facility] ~6 years ago . According to the note from JUSTIN Steele on 08/22/25, the patient reported a left carpal tunnel release done at [facility] in ~[id number], and denied any prior surgery to her right hand. She does report good relief and normal sensation following her surgery. She denies having problems with numbness and tingling in any of the fingers of her right hand In regards to her right hand, she complains of pain radiating from her shoulder down into her wrist & hand. She has right biceps tendinitis & shoulder pain. She is seeing Dr. Meneses for this and for steroid injections She has been wearing wrist braces at night, with some relief. 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 [facility] Medical History Hypertension Bilateral hand numbness Back pain with right-sided sciatica Follow-up exam, 3-6 months since previous exam Morbid obesity with BMI of 45.0-49.9, adult Lower abdominal pain Contact dermatitis Hypertension Surgical History Previous section Hx of cholecystectomy Hx of appendectomy Family History Mother Breast cancer Hypertension Sister Type 2 diabetes mellitus Father Myocardial infarction Brother Myocardial infarction, Onset Age: 40 Social History Household Members: Spouse and Children Housing: Apartment Alcohol intake: current Alcohol intake frequency: holidays/special occasions only Patient Tobacco Use Status: Former Tobacco user Tobacco use type: Cigarette Cigarettes Per Day: 2 e-Cigarette/Vaping Use: Never Used Second Hand Smoke Exposure: Yes Substance Use Type: Marijuana service: No Current occupational status: employed 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, 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 Cognitive needs: No Hearing needs: No Vision needs: Yes (Glasses) Female Reproductive History Menstrual Age of Menarche: 15 Review of Systems Const All systems reviewed & are unremarkable except as noted in HPI and below Physical Exam Vital Signs: BMI result Body Mass Index 48.1 Const General: cooperative, healthy appearing and no acute distress Orientation/consciousness: patient oriented x3 HEENT Head: Yes normocephalic and Yes atraumatic Eyes EOM: EOMs intact bilaterally Resp Effort & Inspection: normal respiratory effort and able to speak in complete sentences Cardio Jugular venous distension: no JVD Skin General skin exam: turgor normal Rashes: no rashes Neuro General: patient oriented x3 Extrem Other: Evaluation of Bilateral Upper Extremity: The patient is alert, oriented, and in no acute distress Neuro: No thenar or intrinsic wasting Good APB muscle belly firing and good finger cross Vascular: Cap refill brisk ROM: She can make a fist and extend all of her digits bilaterally. No locking or catching. Smooth and painless wrist range of motion. Skin: No lacerations or abrasions. General: No Ecchymosis. No Erythema or evidence of infection. Radiographs: IMPRESSION: 1. This is an abnormal study. 2. There is electrodiagnostic evidence for left mild median neuropathy at the wrist, still consistent with carpal tunnel syndrome. 3. There is no electrodiagnostic evidence for ulnar neuropathy, brachial plexopathy, or cervical radiculopathy. 4. No signs of median neuropathy on right. Thank you for your kind referral. Anastacia Arriaga MD, BRIDGER 06/29/25 Psych Appearance: grossly normal Affect: normal affect Attitude: cooperative Assessment & Plan Assessment & Plan (1) Left carpal tunnel syndrome: Code(s): G56.02 - Carpal tunnel syndrome, left upper limb Category: Medical (2) Left arm pain: Code(s): M79.602 - Pain in left arm Category: Medical (3) Numbness of left hand: Code(s): R20.0 - Anesthesia of skin Category: Medical (4) Right arm pain: Code(s): M79.601 - Pain in right arm Category: Medical Plan Assessment & Plan: 1. Left carpal tunnel syndrome, mild Unclear if recurrent, need to check operative side with patient again to confirm. There have been conflicting reports of left vs right carpal tunnel release in the past, done at [facility] No complaints of numbness in the median nerve distribution today 2. Left upper extremity pain & numbness Dorsal lateral elbow & forearm, into the dorsum of her hand Occasional numbness in the ulnar nerve distribution only No operative intervention indicated at this time If she develops new or worsening numbness she can follow up to discuss treatment options Otherwise she can follow up prn 3. Right arm pain Radiating from her right shoulder, down into her hand She is being seen & treated by Dr. Meneses for this issue Scribed for Yris Haynes MD by Joshua Jackson, medical numerical control operator, on 09/07/25 at 3:00 PM, EST. Coding Level of Care Code Est Pt Level 4 (94770) Diagnoses Left carpal tunnel syndrome G56.02 Left arm pain M79.602 Numbness of left hand R20.0 Right arm pain M79.601
[2025-09-07 14:50] VITALS: BMI 48.1
== END 2025-09-07 15:14 | disposition home or self-care (01) ==
LOC: HO.HOS 14:26
PROVIDERS: PCP Internal Medicine; Visit Provider Orthopaedic Surgery
DX: G56.02 Carpal tunnel syndrome, left upper limb (principal); M79.602 Pain in left arm; R20.0 Anesthesia of skin; M79.601 Pain in right arm
CPT/HCPCS: 99213

== ENCOUNTER → 2025-09-07 14:25 | Outpatient (BNVA) | payer OTHER, SELFPAY | PROVIDERS: PCP Internal Medicine; Visit Provider Orthopaedic Surgery | DX: G56.02 Carpal tunnel syndrome, left upper limb (principal); M79.602 Pain in left arm; R20.0 Anesthesia of skin; M79.601 Pain in right arm | CPT/HCPCS: 99212 ==

== ENCOUNTER 2025-09-09 09:01 | Outpatient (AMB) | payer OTHER, SELFPAY ==
--- NOTE | 2025-09-09 09:11 | A.OFFVIS_ITS ---
Intake Visit Reasons: OV- right upper trapezius Trigger point INJ #1 Intake Note: Jose is a 39 year old female who presents today for a trigger point injection #1 in her right upper trapezius. At last visit 08/05/25 we referred her to physical therapy and referred/seen by [facility] General Surgeons,09/06/25. At today's visit she states no changes to report at this time. Allergies No Known Allergies Allergy (Verified 09/09/25 09:12) Medication List - Last Reconciled 09/09/25 by Anastacia Arriaga MD acetaminophen 650 mg PO Q6H PRN lisinopril 10 mg PO DAILY PFSH Medical History Hypertension Bilateral hand numbness Back pain with right-sided sciatica Follow-up exam, 3-6 months since previous exam Morbid obesity with BMI of 45.0-49.9, adult Lower abdominal pain Contact dermatitis Hypertension Surgical History Previous section Hx of cholecystectomy Hx of appendectomy Family History Mother Breast cancer Hypertension Sister Type 2 diabetes mellitus Father Myocardial infarction Brother Myocardial infarction, Onset Age: 40 Social History Household Members: Spouse and Children Housing: Apartment Alcohol intake: current Alcohol intake frequency: holidays/special occasions only Patient Tobacco Use Status: Former Tobacco user Tobacco use type: Cigarette Cigarettes Per Day: 2 e-Cigarette/Vaping Use: Never Used Second Hand Smoke Exposure: Yes Substance Use Type: Marijuana service: No Current occupational status: employed 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 Consent obtained. 2 trigger points palpated on right upper trapezius. Area cleansed with Betadine. Needling performed with gauge 27 needle, subsequently injecting 1 ml of 2% Lidocaine on each site, total of 2 mL. Patient tolerated procedure well. Post-injection instructions given. 55928-Fyjkjuz Point Injection 1 or 2 sites All charges added?: Procedure code (CPT) selection complete Assessment & Plan Assessment & Plan (1) Myofascial pain: Code(s): M79.18 - Myalgia, other site Category: Medical Plan: Suspect most of her pain in the right shoulder is myofascial, particularly right upper trapezius. Plan Tolerated procedure well. Assessment and plan discussed with patient, and patient was agreeable. All qu estions were answered thoroughly. Anastacia Arriaga MD, BRIDGER Board Certified, [place] Board of Physical Medicine and Rehabilitation (ABPMR) Board Certified, [place] Board of Electrodiagnostic Medicine (ABEM) Orders: Orders AMB Trigger Point Injection Today M79.18 - Myalgia, other site Coding Level of Care Code Procedure Only Diagnoses Myofascial pain M79.18 CPT Codes Therapeutic Injection - Ther Injection 1: 92471-Xuabbcs Point Injection 1 or 2 sites ([id number])
--- OUTSIDE RECORDS SUMMARY | 2025-09-09 09:27 | XMS_ITS | Clinical Summary ---
Author Organization [facility] Address [address] [place] [address] Phone Care Team Providers Care Steam Conditioner Operator Name Role Phone Sesar Noble MD Primary Care Provider [phone]- [phone] Allergies No known active allergies Medications lisinopriL [...] for your loved ones. For example, children's attendant or elderly care for an older [...] mmol/L LAB CHEMISTRY METHOD 01/22/2025 2:30 PM [facility] Potassium 4.1 3.5 - 5.5 mmol/L LAB CHEMISTRY METHOD 01/22/2025 2:30 PM [facility] Chloride 105 96 - 110 mmol/L LAB CHEMISTRY METHOD 01/22/2025 2:30 PM [facility] CO2 25 21 - 32 mmol/L LAB CHEMISTRY METHOD 01/22/2025 2:30 PM [facility] Anion Gap 8 3 - 11 LAB CHEMISTRY METHOD 01/22/2025 2:30 PM [facility] Glucose 92 70 - 100 mg/dL LAB CHEMISTRY METHOD 01/22/2025 2:30 PM [facility] BUN 11 5 - 25 mg/dL LAB CHEMISTRY METHOD 01/22/2025 2:30 PM [facility] Creatinine 0.54 0.50 - 1.10 mg/dL LAB CHEMISTRY METHOD 01/22/2025 2:30 PM [facility] eGFR 121 >=60 mL/min/1. 73m2 LAB CHEMISTRY METHOD 01/22/2025 2:30 PM [facility] Comment:Calculation based on the Chronic Kidney Disease Epidemiology Collaboration (CKD-EPI) equation refit without adjustment for race. BUN/Creatinine Ratio 20.4 LAB CHEMISTRY METHOD 01/22/2025 2:30 PM [facility] Calcium 8.9 8.5 - 10.5 mg/dL LAB CHEMISTRY METHOD 01/22/2025 2:30 PM [facility] AST (SGOT) 28 10 - 42 unit/L LAB CHEMISTRY METHOD 01/22/2025 2:30 PM [facility] ALT (SGPT) 43 10 - 60 unit/L LAB CHEMISTRY METHOD 01/22/2025 2:30 PM [facility] Alkaline Phosphatase 72 42 - 121 unit/L LAB CHEMISTRY METHOD 01/22/2025 2:30 PM [facility] Total Protein 6.9 6.0 - 8.0 g/dL LAB CHEMISTRY METHOD 01/22/2025 2:30 PM [facility] Albumin 3.6 3.2 - 5.0 g/dL LAB CHEMISTRY METHOD 01/22/2025 2:30 PM [facility] Total Bilirubin 0.5 0.0 - 1.4 mg/dL LAB CHEMISTRY METHOD 01/22/2025 2:30 PM [facility] Blood Venous blood specimen / Unknown Venipuncture / Unknown 01/22/2025 1:48 PM EST 01/22/2025 1:58 PM EST us Phan Moran MD LAB BLOOD ORDERABLES Final Result [facility] [address] [place] [address], from Last 3 Months or Most Recently Relevant to Health Maintenance Insurance [facility] [place] [phone] Advance Directives * Full Code - Default [...] currently active code status orders. Care Teams Steam Conditioner Operator Relationship Specialty Start Date End Date Sesar Noble MD [facility] [address] [facility] [id number] PCP - General Internal Medicine 01/22/25
== END 2025-09-09 09:25 | disposition home or self-care (01) ==
LOC: HO.HOS 09:02
PROVIDERS: PCP Internal Medicine; Visit Provider Physical Medicine & Rehabilitation
DX: M79.18 Myalgia, other site (principal)
CPT/HCPCS: 20552

== ENCOUNTER → 2025-09-09 09:01 | Outpatient (BNVA) | payer OTHER, SELFPAY | PROVIDERS: PCP Internal Medicine; Visit Provider Physical Medicine & Rehabilitation | DX: M79.18 Myalgia, other site (principal) | CPT/HCPCS: 20552; J2003 ==

== ENCOUNTER 2025-09-16 08:23 | Outpatient (AMB) | payer OTHER, SELFPAY ==
--- NOTE | 2025-09-16 08:36 | MHC.OFFVIS ---
Intake Visit Reasons: OV-Right Trigger point INJ #2 Intake Note: Jose is a 39 year old female who presents today for a right upper trapezius Trigger Point Injection #2. At last visit we referred her to physical therapy. Patient states that she has called physcial therapy three times and has not received a call back. Allergies No Known Allergies Allergy (Verified 09/09/25 09:12) HPI Comments Details: She had one day soreness after last Friday, felt better (even compared to prior to injection) by Friday, but pain started recurring Friday. [facility] Medical History Hypertension Bilateral hand numbness Back pain with right-sided sciatica Follow-up exam, 3-6 months since previous exam Morbid obesity with BMI of 45.0-49.9, adult Lower abdominal pain Contact dermatitis Hypertension Surgical History Previous section Hx of cholecystectomy Hx of appendectomy Family History Mother Breast cancer Hypertension Sister Type 2 diabetes mellitus Father Myocardial infarction Brother Myocardial infarction, Onset Age: 40 Social History Household Members: Spouse and Children Housing: Apartment Alcohol intake: current Alcohol intake frequency: holidays/special occasions only Patient Tobacco Use Status: Former Tobacco user Tobacco use type: Cigarette Cigarettes Per Day: 2 e-Cigarette/Vaping Use: Never Used Second Hand Smoke Exposure: Yes Substance Use Type: Marijuana service: No Current occupational status: employed 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 Consent obtained. Three trigger points palpated on right upper trapezius. Area cleansed with Betadine. Needling performed with gauge 27 needle, subsequently injecting 1 ml of 2% Lidocaine on each site, total of 3 mL. Patient tolerated procedure well. Post-injection instructions given. [id number] Point Injection 3 or more All charges added?: Procedure code (CPT) selection complete Office Meds lidocaine (PF) 20 mg/mL (2 %) injection solution Performing Provider: Anastacia Arriaga MD [place] [facility] [place] [facility] Documented (not given) by: Anastacia Arriaga MD on 09/16/25 08:50 Dose Route Admin Location Dispensed Lot Number Expiration Date NDC Local Delivery Driver 60 mg subcut mL Total Dispensed Waste n/a n/a Assessment & Plan Assessment & Plan (1) Myofascial pain: Code(s): M79.18 - Myalgia, other site Category: Medical Plan: Suspect most of her pain in the right shoulder is myofascial, particularly right upper trapezius. Plan Tolerated procedure well. Assessment and plan discussed with patient, and patient was agreeable. All questions were answered thoroughly. Anastacia Arriaga MD, BRIDGER Board Certified, [place] Board of Physical Medicine and Rehabilitation (ABPMR) Board Certified, [place] Board of Electrodiagnostic Medicine (ABEM) Orders: Orders AMB Trigger Point Injection Today M79.18 - Myalgia, other site Medications: New lidocaine (PF) 60 mg (3 mL) subcut ONCE 3 mL 0RF M79.18 - Myalgia, other site Coding Level of Care Code Procedure Only Diagnoses Myofascial pain M79.18 CPT Codes Therapeutic Injection - Ther Injection 2: [id number]-[id number] Point Injection 3 or more ([id number])
--- OUTSIDE RECORDS SUMMARY | 2025-09-16 08:40 | XMS_ITS | Clinical Summary ---
Author Organization [facility] Address [address] [place] [address] Phone Care Team Providers Care Day Light Relief Operator Name Role Phone Sesar Noble MD Primary Care Provider +1- [phone] Allergies No known active allergies Medications lisinopriL [...] for your loved ones. For example, child welfare worker or elderly care for an older [...] mmol/L LAB CHEMISTRY METHOD 01/22/2025 2:30 PM [facility] Potassium 4.1 3.5 - 5.5 mmol/L LAB CHEMISTRY METHOD 01/22/2025 2:30 PM [facility] Chloride 105 96 - 110 mmol/L LAB CHEMISTRY METHOD 01/22/2025 2:30 PM [facility] CO2 25 21 - 32 mmol/L LAB CHEMISTRY METHOD 01/22/2025 2:30 PM [facility] Anion Gap 8 3 - 11 LAB CHEMISTRY METHOD 01/22/2025 2:30 PM [facility] Glucose 92 70 - 100 mg/dL LAB CHEMISTRY METHOD 01/22/2025 2:30 PM [facility] BUN 11 5 - 25 mg/dL LAB CHEMISTRY METHOD 01/22/2025 2:30 PM [facility] Creatinine 0.54 0.50 - 1.10 mg/dL LAB CHEMISTRY METHOD 01/22/2025 2:30 PM [facility] eGFR 121 >=60 mL/min/1. 73m2 LAB CHEMISTRY METHOD 01/22/2025 2:30 PM [facility] Comment:Calculation based on the Chronic Kidney Disease Epidemiology Collaboration (CKD-EPI) equation refit without adjustment for race. BUN/Creatinine Ratio 20.4 LAB CHEMISTRY METHOD 01/22/2025 2:30 PM [facility] Calcium 8.9 8.5 - 10.5 mg/dL LAB CHEMISTRY METHOD 01/22/2025 2:30 PM [facility] AST (SGOT) 28 10 - 42 unit/L LAB CHEMISTRY METHOD 01/22/2025 2:30 PM [facility] ALT (SGPT) 43 10 - 60 unit/L LAB CHEMISTRY METHOD 01/22/2025 2:30 PM [facility] Alkaline Phosphatase 72 42 - 121 unit/L LAB CHEMISTRY METHOD 01/22/2025 2:30 PM [facility] Total Protein 6.9 6.0 - 8.0 g/dL LAB CHEMISTRY METHOD 01/22/2025 2:30 PM [facility] Albumin 3.6 3.2 - 5.0 g/dL LAB CHEMISTRY METHOD 01/22/2025 2:30 PM [facility] Total Bilirubin 0.5 0.0 - 1.4 mg/dL LAB CHEMISTRY METHOD 01/22/2025 2:30 PM [facility] Blood Venous blood specimen / Unknown Venipuncture / Unknown 01/22/2025 1:48 PM EST 01/22/2025 1:58 PM EST us Phan Moran MD LAB BLOOD ORDERABLES Final Result [facility] [address] [place] [address], from Last 3 Months or Most Recently Relevant to Health Maintenance Insurance [facility] Advance Directives * Full Code - [...] currently active code status orders. Care Teams Day Light Relief Operator Relationship Specialty Start Date End Date Sesar Noble MD [facility] [address] [facility] [id number] PCP - General Internal Medicine 01/22/25
== END 2025-09-16 08:47 | disposition home or self-care (01) ==
LOC: HO.HOS 08:24
PROVIDERS: PCP Internal Medicine; Visit Provider Physical Medicine & Rehabilitation
DX: M79.18 Myalgia, other site (principal)
CPT/HCPCS: 20553

== ENCOUNTER → 2025-09-16 08:23 | Outpatient (BNVA) | payer OTHER, SELFPAY | PROVIDERS: PCP Internal Medicine; Visit Provider Physical Medicine & Rehabilitation | DX: M79.18 Myalgia, other site (principal) | CPT/HCPCS: 20553; J2003 ==

== ENCOUNTER 2025-09-19 11:19 | Outpatient (AMB) | payer OTHER, SELFPAY ==
[2025-09-19 11:24] VITALS: BP 139/76; PULSE 68; TEMP 36.7; O2SAT 99; BMI 47.4
--- NOTE | 2025-09-19 11:24 | A.OFFPC_ITS ---
Vital Signs 09/19/25 11:24 Height 5 ft 2 in Weight 259 lb BMI 47.4 BP 139/76 Blood Pressure Location Rt brachial Position Sitting Pulse 68 Pulse Source Pulse Oximeter Temp 98.1 F Temp Source Temporal Artery Scan Pulse Oximetry (%) 99 Oxygen Delivery Method Room Air Intake Visit Reasons: 3mth f/u marty from 08/25/25 Intake Note: Patient is here for hospital discharge follow up. Patient was discharged from [facility] on 07/23/25. 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 Document Management Analyst: Not Required per policy Accompanied by: Self / Same As Patient Allergies No Known Allergies Allergy (Verified 09/19/25 11:24) Tobacco use date assessed: 09/19/25 Dental Screening Dental Screen Date: 09/19/25 Did you have a dental visit in the last 12 months?: Yes PFSH Medical History Hypertension Bilateral hand numbness Back pain with right-sided sciatica Follow-up exam, 3-6 months since previous exam Morbid obesity with BMI of 45.0-49.9, adult Lower abdominal pain Contact dermatitis Hypertension Surgical History Previous section Hx of cholecystectomy Hx of appendectomy Family History Mother Breast cancer Hypertension Sister Type 2 diabetes mellitus Father Myocardial infarction Brother Myocardial infarction, Onset Age: 40 Social History Household Members: Spouse and Children Housing: Apartment Alcohol intake: current Alcohol intake frequency: holidays/special occasions only Patient Tobacco Use Status: Former Tobacco user Tobacco use type: Cigarette Cigarettes Per Day: 2 e-Cigarette/Vaping Use: Never Used Second Hand Smoke Exposure: Yes Substance Use Type: Marijuana service: No Current occupational status: employed 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 1. Little interest or pleasure in doing things: not at all 2. Feeling down, depressed, or hopeless: not at all 3. Trouble falling or staying asleep, or sleeping too much: not at all 4. Feeling tired or having little energy: not at all 5. Poor appetite or overeating: not at all 6. Feeling bad about yourself - or that you are a failure or have let yourself or your family down: not at all 7. Trouble concentrating on things, such as reading the newspaper or watching television: not at all 8. Moving or speaking so slowly that other people could have noticed. Or the opposite - being so fidgety or restless that you have been moving around a lot more than usual: not at all 9. Thoughts that you would be better off or of hurting yourself in some way: not at all Total score: 0 Depression Screening Interpretation: Negative Depression Screening Done: Yes 15760 - PHQ-9 Billing: Yes Source: Developed by Drs. Murphy Hall, Yolanda Dickinson, Duy Carlton and colleagues, with an educational aaliyah from [employer]. Thrive Questionnaire Date Thrive assessed: 09/19/25 I am a: Patient What is your living situation today?: I have a steady place to live Within the past 12 months, did the food you bought not last and you didn't have the money to get more?: Never true Within the past 12 months, did you worry whether your food would run out before you got money to buy more?: Never true Do you have trouble paying for medicines?: I choose not to answer this question Do you have trouble getting transportation to medical appointments?: I choose not to answer this question Do you have trouble paying your heating and electricity bill?: I choose not to answer this question Do you have trouble taking care of your child, family member or friend?: I choose not to answer this question Do you have trouble with day-to-day activities such as bathing, preparing meals, shopping, managing finances, etc.?: Yes Are you currently unemployed and looking for a job?: No Are you interested in more education?: No Currently or been in a relationship where the following occur: No concerns reported THRIVE Score: 0 AUDIT C Alcohol Use Questionnaire (AUDIT-C) 2. How many drinks containing alcohol do you have on a typical day when you are drinking?: 1 or 2 3. How often do you have six or more drinks on one occasion?: Never Total Score: 0 Score Reviewed/Action Taken: Yes LEVI-7 AMB Questionnaire LEVI-7 Date LEVI - 7 assessed: 09/19/25 Feeling nervous, anxious, or on edge: 0 = Not at all Not being able to stop or control worryin = Not at all Worrying too much about different things: 0 = Not at all Trouble relaxin = Not at all Being so restless that it is hard to sit still: 0 = Not at all Becoming easily annoyed or irritable: 0 = Not at all Feeling afraid as if something awful might happen: 0 = Not at all Total LEVI-7 score (0-4 normal; 5-9 mild; 10-14 moderate; 15-21 severe): 0 Source: Developed by Drs. Murphy Hall, Yolanda Dickinson, Duy Carlton and colleagues, with an educational aaliyah from [employer]. Physical exam (Primary Care) Vital Signs: Last Vital Signs Temp 98.1 F 09/19/25 11:24 Pulse 68 09/19/25 11:24 BP 139/76 09/19/25 11:24 Pulse Ox 99 09/19/25 11:24 Oxygen Delivery Method Room Air 09/19/25 11:24 BMI result Body Mass Index 47.4 Tobacco/Smoking Status: Tobacco use Status Tobacco use date assessed 09/19/25 09/19/25 11:29 Patient Tobacco Use Status Former Tobacco user 09/19/25 11:29 Tobacco use type Cigarette 09/19/25 11:29 e-Cigarette/Vaping Use Never Used 09/19/25 11:29 PHQ-9: PHQ-9 Score PHQ-9: Total score 0 09/19/25 11:48 Depression Screening Interpretation: Negative Thrive Assessment: Date of Thrive Assessment Date Thrive assessed 09/19/25 09/19/25 11:29 Currently or been in a relationship where the following occur: No concerns rep orted Office Procedures Flu Questionnaire Does the patient have a severe egg allergy?: No Does the patient have severe life threatening allergies?: No Does the patient have a fever or illness today?: No Has the patient ever had Guillain-[place] Syndrome?: No Has the patient ever had any past reaction to a flu shot?: No Immunizations Fluarix [id number] (PF) 45 mcg (15 mcg x 3)/0.5 mL IM syringe Performing Provider: Sesar Noble MD Performing Location: [facility] Documented (not given) by: Jennifer Alfaro CMA on 09/19/25 11:49 Reason Not Given: Patient Refused Coding Level of Care Code Est Pt Level 4 (59052) Complex EM visit Add On G2211 Diagnoses Primary hypertension I10 Hypertension type: primary hypertension Additional Codes PHQ-9 - 49125 - PHQ-9 Billing: Yes ([id number]) Assessment & Plan Assessment & Plan (1) Hypertension: Code(s): I10 - Essential (primary) hypertension Category: Medical Qualifiers: Hypertension type: primary hypertension Qualified Code(s): I10 - Essential (primary) hypertension Plan: History of Present Illness - The patient is a 39-year-old female presenting with neck pain, back pain, and right-sided sciatica. - Neck pain has persisted since January, with temporary relief from injection therapy, and physical therapy is anticipated to aid in muscle relaxation. - Back pain and right-sided sciatica continue without specific interventions discussed. - An abdominal mass, likely an endometrial implant, is scheduled for surgical removal, requiring preoperative clearance due to a prior hospitalization for hypertension and bradycardia. - Hypertension is controlled with lisinopril, with home monitoring showing variable readings, the highest being 189 mmHg post-hospitalization. Social History - Employment: Works at [employer] in [employer]. Review of Systems - Musculoskeletal: Reports neck pain, back pain, and right-sided sciatica. - Cardiovascular: Reports history of hypertension, denies current chest pain or palpitations. Physical Exam General: Cooperative and healthy appearing Nutritional Appearance: Well nourished Orientation/consciousness: Patient oriented x3 Limitations: No limitations Head: Normal to inspection General: Appearance normal, both eyes and all related structures Neck: Normal visual inspection Chest: Normal palpation of entire chest wall Respiratory: N ormal respiratory effort Neurology: Patient oriented x3, reports neck pain and right side sciatica. Results Plan - Continue lisinopril for hypertension, ensuring adherence to preoperative and postoperative instructions. - Proceed with physical therapy for neck pain, utilizing injections as necessary for symptom relief. - Ensure surgical clearance for abdominal mass removal, coordinating with the surgical team as needed. - Patient opted out of receiving the flu vaccine at this visit. Discussion Notes I discussed the management of hypertension with the patient, emphasizing the importance of continuing lisinopril up to the day of surgery and resuming it postoperatively. We reviewed the plan for neck pain, including the role of physical therapy and intermittent injections. I confirmed the surgical plan for the abdominal mass and assured the patient that I would provide preoperative clearance if requested. The patient declined the flu vaccine, which was noted and accepted. Follow-up was scheduled for six months. Patient Instructions - Continue taking lisinopril daily, including the day of surgery, and resume as soon as possible after surgery. - Attend scheduled physical therapy sessions for neck pain management. - Follow up with the surgical team regarding the abdominal mass removal and ensure all preoperative requirements are met. - Return for a follow-up appointment in six months. Orders: Orders Influenza [id number] Immunization Today Z23 - Encounter for immunization
== END 2025-09-19 11:49 | disposition home or self-care (01) ==
LOC: HO.HMCSH 11:19
PROVIDERS: PCP Internal Medicine; Visit Provider Internal Medicine
DX: Z23 Encounter for immunization (principal); I10 Essential (primary) hypertension

== ENCOUNTER → 2025-09-19 11:19 | Outpatient (BNVA) | payer OTHER, SELFPAY | PROVIDERS: PCP Internal Medicine; Visit Provider Internal Medicine | DX: I10 Essential (primary) hypertension (principal); M54.41 Lumbago with sciatica, right side; Z79.899 Other long term (current) drug therapy; Z28.21 Immunization not carried out because of patient refusal; Z13.31 Encounter for screening for depression; Z13.39 Encounter for screening examination for other mental health and behavioral disorders | CPT/HCPCS: 90471; 96127; 99212 ==

== ENCOUNTER 2025-09-21 08:50 | Day surgery (SDC) | payer OTHER, SELFPAY ==
--- NOTE | 2025-09-19 10:12 | P.CONAN_ITS ---
Documented by User: Hannah Hodges NP 09/19/25 10:27 HPI - Anesthesia Eval Consult details Narrative: 39 yr old female for right ?Excision Mass Lower Abdominal Quadrant BMI 48 Pt was [place] [facility] [place] for dizziness, orthostatic hypotension, chest tightness; work up including labs, EKG, head CTA was negative. Saw her PCP 08/2025 for HFU, was referred to cardiology, but that visit has not happened yet. Spoke to pt 09/19, she denies recent dizziness or chest tightness. [facility] Active Problems Active Problems: All Active Problems (Updated 09/07/25 @ 15:35 by Joshua Jackson) Right arm pain (Acute) Numbness of left hand (Acute) Left arm pain (Acute) Abdominal wall mass of right lower quadrant (Acute) Left carpal tunnel syndrome (Acute) Numbness and tingling in both hands (Acute) Sacroiliac joint dysfunction of right side (Acute) Biceps tendonitis on right (Acute) Carpal tunnel syndrome on both sides (Acute) Lipoma of abdominal wall (Acute) Right groin pain (Acute) Right shoulder pain (Acute) Myofascial pain (Acute) Bilateral hand numbness (Acute) Back pain with right-sided sciatica (Acute) Follow-up exam, 3-6 months since previous exam (Acute) Morbid obesity with BMI of 45.0-49.9, adult (Acute) Lower abdominal pain (Acute) Cervicalgia (Acute) Muscle strain of right shoulder (Acute) Elevated ALT measurement (Acute) Vitamin D deficiency (Acute) Obesity (Acute) Contact dermatitis (Acute) Hypertension (Acute) Past Medical History Medical History Hypertension Bilateral hand numbness Back pain with right-sided sciatica Follow-up exam, 3-6 months since previous exam Morbid obesity with BMI of 45.0-49.9, adult Lower abdominal pain Contact dermatitis Hypertension Family History Family History Mother Breast cancer Hypertension Sister Type 2 diabetes mellitus Father Myocardial infarction Brother Myocardial infarction, Onset Age: 40 Surgical History Surgical History Previous section Hx of cholecystectomy Hx of appendectomy Social History Social History Household Members: Spouse and Children Housing: Apartment Alcohol intake: current Alcohol intake frequency: holidays/special occasions only Patient Tobacco Use Status: Former Tobacco user Tobacco use type: Cigarette Cigarettes Per Day: 2 e-Cigarette/Vaping Use: Never Used Second Hand Smoke Exposure: Yes Use of substances other than those prescribed or required for medical reasons: Yes Substance Use Type: Marijuana Substance Use Type Other:: vapes marijuana Are you DNR?: No Advance Directives: No Advance Directives Information Provided: Yes : No Poor oral hygiene: No service: No Current occupational status: employed 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 Rate : 61 BPM Atrial Rate : 61 BPM P-R Int : 158 ms QRS Dur : 104 ms QT Int : 430 ms P-R-T Axes : 12 71 37 degrees QTcB Int : 432 ms Sinus rhythm with Premature atrial complexes Otherwise normal ECG No previous ECGs available Documented by User: Sheela Santizo MD 09/21/25 10:05 [facility] Past Medical History Medical History Hypertension Bilateral hand numbness Back pain with right-sided sciatica Follow-up exam, 3-6 months since previous exam Morbid obesity with BMI of 45.0-49.9, adult Lower abdominal pain Contact dermatitis Hypertension Family History Family History Mother Breast cancer Hypertension Sister Type 2 diabetes mellitus Father Myocardial infarction Brother Myocardial infarction, Onset Age: 40 Family history of problems with anesthesia: No Surgical History Surgical History Previous section Hx of cholecystectomy Hx of appendectomy History of Problems with Anesthesia: No Social History Social History Household Members: Spouse and Children Housing: Apartment Alcohol intake: current Alcohol intake frequency: holidays/special occasions only Patient Tobacco Use Status: Former Tobacco user Tobacco use type: Cigarette Cigarettes Per Day: 2 e-Cigarette/Vaping Use: Never Used Second Hand Smoke Exposure: Yes Use of substances other than those prescribed or required for medical reasons: Yes Substance Use Type: Marijuana Substance Use Type Other:: vapes marijuana Are you DNR?: No Advance Directives: No Advance Directives Information Provided: Yes : No Poor oral hygiene: No service: No Current occupational status: employed 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, 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 Cognitive needs: No Hearing needs: No Vision needs: Yes (Glasses) Meds Allergies Allergy/AdvReac Type Severity Reaction Status Date / Time No Known Allergies Allergy Verified 09/19/25 11:24 Home Medications ?Medication ?Instructions ?Recorded ?Confirmed ?Last Taken ?Type acetaminophen 325 mg tablet 650 mg PO Q6H PRN Fever Or Pain 07/22/25 09/19/25 Unknown History Exam Airway Mallampati Class: II TM Dist: >3cm Neck ROM: Full Heart: rrr Lungs: cta Assessment and Plan Assessment Anesthesia Assessment: Anesthesia Plan Discussed and Chart Reviewed Final Anesthetic Review Family History of Problems with Anesthesia: No History of Problems with Anesthesia: No NPO: Yes ASA Class: III Final Preanesthetic Review: No Changes in Pt Med Stat, Meds/Allgs Chart Reviewed and Consent Obtained/Reviewed Patient Risk: Intermediate Procedure Risk: Low Anesthetic Plan Anesthetic Plan: GA Disposition: Standard PACU
[2025-09-19 11:03] VITALS: BMI 48.1
[2025-09-21] VITALS (9 sets, daily range): BP systolic 108–136; BP diastolic 60–79; PULSE 57–72; RESP 15–22; TEMP 36.4–36.8; O2SAT 96–100; BMI 47.3
[2025-09-21 09:43] LABS: UPreg QC Valid YES
[2025-09-21] MEDS: Lactated Ringers 1,000 ML 100 ML IVCONT (10:01)
--- NOTE | 2025-09-21 10:09 | MHC.SHP ---
Pre-Procedural Eval Section A - 24 Hr Update-Section A only Date of Service: 09/21/25 The patient is an INPATIENT: No Changes since office visit: Yes Patient answered all questions; No Cold of Flu in the past 2 weeks, No New Medical Problems and No Changes in Medication The patient has been examined within 24 hours of the surgical procedure. The History & Physical has been completed within 30 days and I have reviewed it.: Yes Section B - Complete if H&P > 30 days Chief Complaint: Right lower quadrant abdominal swelling, mass Allergies: Allergies Allergy/AdvReac Type Severity Reaction Status Date / Time No Known Allergies Allergy Verified 09/19/25 11:24 Plan Diagnosis/Plan: Unchanged I have reviewed the history and physical and performed a pertinent physical examination on my patient. No changes have occurred unless specified. Time Spent With Patient Time: Total time managing care of this patient today ____ minutes.
--- NOTE | 2025-09-21 10:53 | W.PM.OPN ---
Operative Note Operative Note Date of Service: 09/21/25 Narrative: Preoperative diagnosis: Abdominal wall mass right lower quadrant Postoperative diagnosis: Same Procedure: Excision of abdominal wall mass right lower quadrant Surgeon: Cheko Jenkins MD Audiovisual Aids Technician: Poonam Thomas PA-C Anesthesia: General LMA Indications for procedure: 39-year-old female patient presenting with a painful lump in the right lower quadrant. The patient has a previous history of section through a Pfannenstiel incision. This lump is located adjacent to this incision. Findings are suggestive of an endometrial implant Operative findings: Mass abdominal wall right lower quadrant suggestive of endometrial implant. Specimen: Mass right lower quadrant abdomen Estimated blood loss: Less than 2 mL Complications: None Procedure details: Patient was brought to the OR and placed in a supine position. After administering general anesthesia the patient's abdomen was prepped with ChloraPrep and draped in a sterile fashion. Local anesthesia was then infiltrated at the lateral aspect of the Pfannenstiel incision on the right side. An incision was then made with a scalpel directly over the palpable mass and carried out through subcutaneous tissue. Core of tissue surrounding the palpable mass was then excised. Mass extended down to fascia therefore the mass was excised off the fascia. Lesion was passed off the table and sent to pathology for further examination. Wounds were checked for hemostasis using electrocautery. The incision was then irrigated with sterile water. Deep subcutaneous tissue was then reapproximated using interrupted 3-0 Polysorb sutures. Dermis was reapproximated using interrupted 3-0 Polysorb sutures. Skin was then closed using a running subcuticular 4-0 Polysorb suture. Steri-Strips, 4 x 4 gauze and Tegaderm were then applied. The patient tolerated the procedure well and was transferred to PACU in stable condition.
== END 2025-09-21 12:50 | disposition home or self-care (01) ==
PROVIDERS: Nurse Practitioner; PCP Internal Medicine; Visit Provider Surgery
PROC: (CPT 22903; principal; 2025-09-21 10:50)
DX: N80.C10 Endometriosis of the anterior abdominal wall, subcutaneous tissue (principal)
CPT/HCPCS: 22903; 81025; 88304; 88305; J0690; J1100; J2003; J2250; J2405; J2704; J3010

== ENCOUNTER → 2025-09-21 08:50 | Outpatient (BNV) | payer OTHER, SELFPAY | PROVIDERS: PCP Internal Medicine; Visit Provider Surgery | DX: R19.03 Right lower quadrant abdominal swelling, mass and lump (principal) | CPT/HCPCS: 22903 ==

== ENCOUNTER 2025-09-28 08:45 | Outpatient (AMB) | payer OTHER, SELFPAY ==
--- NOTE | 2025-09-28 08:47 | A.OFFVIS_ITS ---
Vital Signs 09/28/25 08:54 Height 5 ft 2 in Weight 257 lb 15.053 oz BMI 47.2 BP 130/82 Blood Pressure Location Lt brachial Position Sitting Intake Visit Reasons: s/p excision mass rt lower quadrant Intake Note: Patient here s/p excision mass Rt lower quadrant. 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 States it feels very swollen and tense in the area. Makes it difficult for her to ambulate, she is walking with a limp. She denies any bleeding, discharge from the incision site, states the Steri-Strips are still on. Denies fevers at home, denies nausea or vomiting. Continues to take oxycodone which alleviates the pain. [facility] Medical History Hypertension Bilateral hand numbness Back pain with right-sided sciatica Follow-up exam, 3-6 months since previous exam Morbid obesity with BMI of 45.0-49.9, adult Lower abdominal pain Contact dermatitis Hypertension Surgical History Previous section Hx of cholecystectomy Hx of appendectomy Family History Mother Breast cancer Hypertension Sister Type 2 diabetes mellitus Father Myocardial infarction Brother Myocardial infarction, Onset Age: 40 Social History Household Members: Spouse and Children Housing: Apartment Alcohol intake: current Alcohol intake frequency: holidays/special occasions only Patient Tobacco Use Status: Former Tobacco user Tobacco use type: Cigarette Cigarettes Per Day: 2 e-Cigarette/Vaping Use: Never Used Second Hand Smoke Exposure: Yes Substance Use Type: Marijuana service: No Current occupational status: employed 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, 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 Cognitive needs: No Hearing needs: No Vision needs: Yes (Glasses) Female Reproductive History Menstrual Age of Menarche: 15 Review of Systems Const All systems reviewed & are unremarkable except as noted in HPI and below Physical Exam Vital Signs: Last Vital Signs BP 130/82 09/28/25 08:54 BMI result Body Mass Index 47.2 Const General: comfortable, no acute distress and anxious Orientation/consciousness: patient oriented x3 Resp Effort & Inspection: normal respiratory effort and able to speak in complete sentences GI Other: Incision site appears to be healing well, there was mild edema, no ecchymosis, no surrounding erythema no bleeding or discharge. No induration. No warmth Palpation (GI): Soft to palpation and Tenderness to palpation present (GI) (Right groin incision site.) Neuro General: patient oriented x3 Assessment & Plan Assessment & Plan (1) Abdominal wall mass of right lower quadrant: Code(s): R19.03 - Right lower quadrant abdominal swelling, mass and lump Category: Medical Plan 31-year-old female s/p excision of abdominal wall mass of the right lower quadrant with Dr. Jenkins on 09/21/2025. She reports she is struggling with pain control, needed a refill of oxycodone earlier this week. She continues to have pain at the incision site, feels tense and swollen. Denying discharge or bleeding. Denying fever or chills, nausea or vomiting. 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 On exam the incision site actually he appears to be healing well, the area is not concerning for infection at this time, there was no drainage or bleeding noted. There was some mild edema however otherwise appears to be healing well. It is in a tricky area, in the folds of her abdomen and this area felt slightly moist, I recommended that she keep this area dry after showering and allow this to be free to air. I removed the Steri-Strips but I did place a dry fluff gauze with tape to help keep this area dry. Instructions are to remove this tomorrow, no need to readdress after this. She can do warm compress to the area as needed to help with some of the inflammation and pain. Would like her to stay out of work for next week. We reviewed the pathology results showing endometriosis involving fibrovascular and adipose tissue, no malignancy identified. Patient was very anxious prior to us discussing this, states she saw the results on the portal but was unable to actually do them but she is relieved that this was not a cancer. I did recommend that she follow-up with these results to her graduate studies dean and primary care physician for any further management. She understands and agrees. We will see her back in one-week for follow up, given that she is in lots of pain still. We discussed return precautions, she will call back to be seen earlier if needed. Coding Level of Care Code Est Pt Level 3 (15595) Diagnoses Abdominal wall mass of right lower quadrant R19.03
[2025-09-28 08:54] VITALS: BP 130/82; BMI 47.2
== END 2025-09-28 09:06 | disposition home or self-care (01) ==
LOC: HO.HGS 08:45
PROVIDERS: PCP Internal Medicine
DX: R19.03 Right lower quadrant abdominal swelling, mass and lump (principal)
CPT/HCPCS: 99024

== ENCOUNTER → 2025-09-28 08:45 | Outpatient (BNVA) | payer OTHER, SELFPAY | PROVIDERS: PCP Internal Medicine | DX: R19.03 Right lower quadrant abdominal swelling, mass and lump (principal) | CPT/HCPCS: 99212 ==

== ENCOUNTER 2025-10-05 13:23 | Outpatient (AMB) | payer OTHER, SELFPAY ==
--- NOTE | 2025-10-05 13:31 | A.OFFVIS_ITS ---
Vital Signs 10/05/25 13:37 Height 5 ft 2 in Weight 268 lb BMI 49.0 BP 119/60 Blood Pressure Location Rt radial Position Sitting Pulse 65 Intake Visit Reasons: s/p excision mass rt lower quadrant Intake Note: Patient here to follow up from last office visit 09-28-2025. S/p excision mass Rt lower quadrant. Patient c/o: on and off pain and discomfort. Oxycodone helped but ran out of pills. 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 She denies fevers or chills. Denies drainage from the area. Has been needing to take oxycodone for pain control. FORMERLY [facility], [facility]–1983 Medical History Hypertension Bilateral hand numbness Back pain with right-sided sciatica Follow-up exam, 3-6 months since previous exam Morbid obesity with BMI of 45.0-49.9, adult Lower abdominal pain Contact dermatitis Hypertension Surgical History Previous section Hx of cholecystectomy Hx of appendectomy Family History Mother Breast cancer Hypertension Sister Type 2 diabetes mellitus Father Myocardial infarction Brother Myocardial infarction, Onset Age: 40 Social History Household Members: Spouse and Children Housing: Apartment Alcohol intake: current Alcohol intake frequency: holidays/special occasions only Patient Tobacco Use Status: Former Tobacco user Tobacco use type: Cigarette Cigarettes Per Day: 2 e-Cigarette/Vaping Use: Never Used Second Hand Smoke Exposure: Yes Substance Use Type: Marijuana service: No Current occupational status: employed 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 No induration. No warmth. Very tender to light palpation Palpation (GI): Soft to palpation and Tenderness to palpation present (GI) (Right groin incision site.) Neuro General: patient oriented x3 Assessment & Plan Assessment & Plan (1) Abdominal wall mass of right lower quadrant: Comment: s/p excision Code(s): R19.03 - Right lower quadrant abdominal swelling, mass and lump Category: Medical Plan 31-year-old female s/p excision of abdominal wall mass of the right lower quadrant with Dr. Jenkins on 09/21/2025. She continues to struggle with pain control, states it is slightly better but has significant difficulty ambulating due to pain at the incision site. Denying discharge or bleeding. Denying fever or chills, nausea or vomiting. On exam the incision site actually be appears to be healing well, the area is not concerning for infection at this time, there was no drainage or bleeding noted. There was no induration, edema noticed. She can do warm compress to the area as needed to help with some of the inflammation and pain. Would like her to stay out of work for next week. Because of her continued pain ordered for ultrasound to look for some deep underlying pathology. We will send for one-week of tramadol. Can use Tylenol ibuprofen as needed. She will follow up after ultrasound Orders: Orders US pelvic limited 10/05/25 D17.1 - Benign lipomatous neoplasm of skin and subcutaneous tissue of trunk Medications: New tramadol 50 mg PO TID PRN 21 tabs 0RF pain Coding Level of Care Code Est Pt Level 4 (69738) Diagnoses Abdominal wall mass of right lower quadrant R19.03
[2025-10-05 13:37] VITALS: BP 119/60; PULSE 65; BMI 49.0
== END 2025-10-05 13:52 | disposition home or self-care (01) ==
LOC: HO.HGS 13:24
PROVIDERS: PCP Internal Medicine
DX: R19.03 Right lower quadrant abdominal swelling, mass and lump (principal)
CPT/HCPCS: 99024

== ENCOUNTER → 2025-10-05 13:23 | Outpatient (BNVA) | payer OTHER, SELFPAY | PROVIDERS: PCP Internal Medicine | DX: R19.03 Right lower quadrant abdominal swelling, mass and lump (principal) | CPT/HCPCS: 99212 ==

== ENCOUNTER 2025-10-06 10:58 | Outpatient (AMB) | payer OTHER, SELFPAY ==
--- NOTE | 2025-10-06 11:10 | MHC.OFFVIS ---
Intake Visit Reasons: OV-Right Trigger point INJ #3. Intake Note: Jose is a 39 year old female who presents today for an injection in her right upper trapezius Trigger point INJ #3. Patient states that the last injection did give relief but due to the extended time since the injection she feels that the pain is worse. Allergies No Known Allergies Allergy (Verified 10/05/25 13:36) HPI Comments Details: Feeling more sore, higher up a bit on the neck. PFS Medical History Hypertension Bilateral hand numbness Back pain with right-sided sciatica Follow-up exam, 3-6 months since previous exam Morbid obesity with BMI of 45.0-49.9, adult Lower abdominal pain Contact dermatitis Hypertension Surgical History Previous section Hx of cholecystectomy Hx of appendectomy Family History Mother Breast cancer Hypertension Sister Type 2 diabetes mellitus Father Myocardial infarction Brother Myocardial infarction, Onset Age: 40 Social History Household Members: Spouse and Children Housing: Apartment Alcohol intake: current Alcohol intake frequency: holidays/special occasions only Patient Tobacco Use Status: Former Tobacco user Tobacco use type: Cigarette Cigarettes Per Day: 2 e-Cigarette/Vaping Use: Never Used Second Hand Smoke Exposure: Yes Substance Use Type: Marijuana service: No Current occupational status: employed 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 Consent obtained. Three trigger points palpated on right upper trapezius. Area cleansed with Betadine. Needling performed with gauge 27 needle, subsequently injecting 1 ml of 2% Lidocaine on each site, total of 3 mL. Patient tolerated procedure well. Post-injection instructions given. 31024-Pdwqnpe Point Injection 3 or more All charges added?: Procedure code (CPT) selection complete Office Meds lidocaine (PF) 20 mg/mL (2 %) injection solution Performing Provider: Anastacia Arriaga MD Performing Location: [facility] Documented (not given) by: Anastacia Arriaga MD on 10/06/25 11:23 Dose Route Admin Location Dispensed Lot Number Expiration Date NDC Refinery Operator Reforming Unit 60 mg subcut mL Total Dispensed Waste n/a n/a Assessment & Plan Assessment & Plan (1) Myofascial pain: Code(s): M79.18 - Myalgia, other site Category: Medical Plan: Suspect most of her pain in the right shoulder is myofascial, particularly right upper trapezius. Plan Tolerated procedure well. Assessment and plan discussed with patient, and patient was agreeable. All questions were answered thoroughly. Follow up 2-3 months. Anastacia Arriaga MD, BRIDGER Board Certified, [place] Board of Physical Medicine and Rehabilitation (ABPMR) Board Certified, [place] Board of Electrodiagnostic Medicine (ABEM) Orders: Orders AMB Trigger Point Injection Today M79.18 - Myalgia, other site Medications: New lidocaine (PF) 60 mg (3 mL) subcut ONCE 3 mL 0RF M79.18 - Myalgia, other site Coding Level of Care Code Procedure Only Diagnoses Myofascial pain M79.18 CPT Codes Therapeutic Injection - Ther Injection 2: 84640-Wkvyjmm Point Injection 3 or more ([id number])
== END 2025-10-06 11:57 | disposition home or self-care (01) ==
LOC: HO.HOS 10:58
PROVIDERS: PCP Internal Medicine; Visit Provider Physical Medicine & Rehabilitation
DX: M79.18 Myalgia, other site (principal)
CPT/HCPCS: 20553

== ENCOUNTER → 2025-10-06 10:58 | Outpatient (BNVA) | payer OTHER, SELFPAY | PROVIDERS: PCP Internal Medicine; Visit Provider Physical Medicine & Rehabilitation | DX: M79.18 Myalgia, other site (principal) | CPT/HCPCS: 20553; J2003 ==

== ENCOUNTER 2025-10-13 10:28 | Outpatient (AMB) | payer OTHER, SELFPAY ==
--- NOTE | 2025-10-13 10:57 | AM.OFFVISNUR ---
Intake Visit Reasons: lower abd mass issue Allergies No Known Allergies Allergy (Verified 10/05/25 13:36) Nursing Note Pt reports to the office after calling with concerns about her abdominal incision. She had an excision of a mass approximately 3 weeks ago. Upon exam, wound is very well healed and almost invisible. No redness, no swelling, no drainage, edges well approx. and closed. Advised pt that the bumps she feels along the incision line are likely the dissolving sutures that are under the skin and they will dissolve and be absorbed by the body. She understands and will do so. Pt states she still isn't feeling well and is not ready to go back to work. Appt made to see PA next week for clearance to go back to work. She knows she can call before then if she has any concerns. Coding Level of Care Code Established Pt Est Pt Level 1 (13352) Patient Type Established History Problem Focused Exam Problem Focused Medical Decision Making Straight Forward Time Spent (min) 10 Comment wound assessment, wound teaching
--- OUTSIDE RECORDS SUMMARY | 2025-10-13 12:51 | XMS_ITS | Clinical Summary ---
Author Organization [facility] Address [address] [place] [address] Phone Care Team Providers Care Mexican Food Machine Tender Name Role Phone Sesar Noble MD Primary Care Provider +1- [phone] Allergies No known active allergies Medications lisinopriL [...] Years Used Date Smoking Tobacco: Former Cigarettes 0.2 Q uit: 10/31/2012 Passive Smoke Exposure: Past [...] for your loved ones. For example, children's choir director or elderly care for an older adult? [...] mmol/L LAB CHEMISTRY METHOD 01/22/2025 2:[address] [facility] Potassium 4.1 3.5 - 5.5 mmol/L LAB CHEMISTRY METHOD 01/22/2025 2:[address] [facility] Chloride 105 96 - 110 mmol/L LAB CHEMISTRY METHOD 01/22/2025 2:[address] [facility] CO2 25 21 - 32 mmol/L LAB CHEMISTRY METHOD 01/22/2025 2:[address] [facility] Anion Gap 8 3 - 11 LAB CHEMISTRY METHOD 01/22/2025 2:[address] [facility] Glucose 92 70 - 100 mg/dL LAB CHEMISTRY METHOD 01/22/2025 2:[address] [facility] BUN 11 5 - 25 mg/dL LAB CHEMISTRY METHOD 01/22/2025 2:[address] [facility] Creatinine 0.54 0.50 - 1.10 mg/dL LAB CHEMISTRY METHOD 01/22/2025 2:[address] [facility] eGFR 121 >=60 mL/min/1. 73m2 LAB CHEMISTRY METHOD 01/22/2025 2:[address] [facility] Comment:Calculation based on the Chronic Kidney Disease Epidemiology Collaboration (CKD-EPI) equation refit without adjustment for race. BUN/Creatinine Ratio 20.4 LAB CHEMISTRY METHOD 01/22/2025 2:30 PM EST [facility] Calcium 8.9 8.5 - 10.5 mg/dL LAB CHEMISTRY METHOD 01/22/2025 2:[address] [facility] AST (SGOT) 28 10 - 42 unit/L LAB CHEMISTRY METHOD 01/22/2025 2:[address] [facility] ALT (SGPT) 43 10 - 60 unit/L LAB CHEMISTRY METHOD 01/22/2025 2:[address] [facility] Alkaline Phosphatase 72 42 - 121 unit/L LAB CHEMISTRY METHOD 01/22/2025 2:[address] [facility] Total Protein 6.9 6.0 - 8.0 g/dL LAB CHEMISTRY METHOD 01/22/2025 2:[address] [facility] Albumin 3.6 3.2 - 5.0 g/dL LAB CHEMISTRY METHOD 01/22/2025 2:[address] [facility] Total Bilirubin 0.5 0.0 - 1.4 mg/dL LAB CHEMISTRY METHOD 01/22/2025 2:[address] [facility] Blood Venous blood specimen / Unknown Venipuncture / Unknown 01/22/2025 1:48 PM EST 01/22/2025 1:58 PM EST us Phan Moran MD LAB BLOOD ORDERABLES Final Result [facility] [address] [place] [address], from Last 3 Months or Most Recently Relevant to Health Maintenance Insurance [facility] Advance Directives * Full Code - [...] currently active code status orders. Care Teams Mexican Food Machine Tender Relationship Specialty Start Date End Date Sesar Noble MD [facility] [address] [place] [address] PCP - General Internal Medicine 01/22/25
== END 2025-10-13 10:44 | disposition home or self-care (01) ==
LOC: HO.HGS 10:29
PROVIDERS: PCP Internal Medicine; Visit Provider Surgery
DX: Z48.89 Encounter for other specified surgical aftercare (principal)
CPT/HCPCS: 99024

== ENCOUNTER → 2025-10-13 10:28 | Outpatient (BNVA) | payer OTHER, SELFPAY | PROVIDERS: PCP Internal Medicine; Visit Provider Surgery | DX: Z98.890 Other specified postprocedural states (principal) | CPT/HCPCS: 99212 ==

== ENCOUNTER 2025-10-31 11:16 | Outpatient (REF) | payer OTHER, SELFPAY ==
--- NOTE | ~2025-10-31 | US_ITS ---
EXAMINATION: US pelvis, Comparison: Previous CT of the abdomen and pelvis March 2025 and pelvic ultrasound July 2024 TECHNIQUE: Grayscale and color imaging of the right lower quadrant abdominal wall FINDINGS: No soft tissue mass or fluid collection. There is a small amount of linear fluid seen in area of previous endometrioma resection measuring 2 5 x 0.6 x 5 cm . US/US pelvic limited IMPRESSION: Small amount of linear fluid in area of surgery. No mass or organized fluid collection. Electronically signed by: Jany Schaeffer MD 10/31/2025 12:14 PM [facility]
--- OUTSIDE RECORDS SUMMARY | 2025-10-31 14:47 | XMS_ITS | Clinical Summary ---
Author Organization [facility] Address [address] [place] [address] Phone Care Team Providers Care Denture Finisher Name Role Phone Sesar Noble MD Primary Care Provider +1- [phone] Allergies No known active allergies Medications lisinopriL [...] your loved ones. 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 childhood aide classroom or elderly care for an older adult? [...] LAB CHEMISTRY METHOD 01/22/2025 2:30 PM EST [facility] Calcium 8.9 8.5 [...] Moran MD LAB BLOOD ORDERABLES Final Result [facility] [address] [place] [address], from Last 3 Months or Most Recently Relevant to Health Maintenance Insurance [facility] PL[facility] Advance Directives * Full Code - [...] currently active code status orders. Care Teams Denture Finisher Relationship Specialty Start Date End Date Sesar Noble MD [facility] [address] [place] [address] PCP - General Internal Medicine 01/22/25
== END 2025-10-31 11:17 | disposition home or self-care (01) ==
LOC: HO.US 11:16
PROVIDERS: PCP Internal Medicine
DX: D17.1 Benign lipomatous neoplasm of skin and subcutaneous tissue of trunk (principal)
CPT/HCPCS: 76857

== ENCOUNTER → 2025-10-31 11:17 | Outpatient (BNV) | payer OTHER, SELFPAY | PROVIDERS: PCP Internal Medicine; Visit Provider Radiology Diagnostic Radiology | DX: D17.1 Benign lipomatous neoplasm of skin and subcutaneous tissue of trunk (principal) | CPT/HCPCS: 76857 ==

== ENCOUNTER 2025-11-08 11:07 | Outpatient (AMB) | payer OTHER, SELFPAY ==
--- NOTE | 2025-11-08 11:09 | MHC.OFFVIS ---
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 Reports incision site is well healed [facility] Medical History Hypertension Bilateral hand numbness Back pain with right-sided sciatica Follow-up exam, 3-6 months since previous exam Morbid obesity with BMI of 45.0-49.9, adult Lower abdominal pain Contact dermatitis Hypertension Surgical History Previous section Hx of cholecystectomy Hx of appendectomy Family History Mother Breast cancer Hypertension Sister Type 2 diabetes mellitus Father Myocardial infarction Brother Myocardial infarction, Onset Age: 40 Social History Household Members: Spouse and Children Housing: Apartment Alcohol intake: current Alcohol intake frequency: holidays/special occasions only Patient Tobacco Use Status: Former Tobacco user Tobacco use type: Cigarette Cigarettes Per Day: 2 e-Cigarette/Vaping Use: Never Used Second Hand Smoke Exposure: Yes Substance Use Type: Marijuana service: No Current occupational status: employed 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, 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 Cognitive needs: No Hearing needs: No Vision needs: Yes (Glasses) Female Reproductive History Menstrual Age of Menarche: 15 Physical Exam Vital Signs: Last Vital Signs Temp 97.9 F 11/08/25 11:10 Pulse 77 11/08/25 11:10 Resp 14 11/08/25 11:10 BP 167/79 H 11/08/25 11:10 Pulse Ox 98 11/08/25 11:10 Oxygen Delivery Method Room Air 11/08/25 11:10 BMI result Body Mass Index 48.8 Const General: comfortable and no acute distress Orientation/consciousness: patient oriented x3 Resp Effort & Inspection: normal respiratory effort and able to speak in complete sentences GI Other: Incision site appears to be well healed clean and dry no ecchymosis, no surrounding erythema no bleeding or discharge. No induration. No warmth. Nontender Palpation (GI): Soft to palpation and nontender Neuro General: patient oriented x3 Assessment & Plan Assessment & Plan (1) Abdominal wall mass of right lower quadrant: Comment: s/p excision Code(s): R19.03 - Right lower quadrant abdominal swelling, mass and lump Category: Medical Plan 31-year-old female s/p excision of abdominal wall mass of the right lower quadrant with Dr. Jenkins on 09/21/2025. She continues to have some pain although this is improving. She is now ambulating more and tolerating this. Now back to work. She has no concerns with the incision site. Last appointment we had ordered ultrasound to look for underlying pathology results were as follows small amount of linear fluid seen in area of previous endometrioma resection measuring 2.5 x 0.6 x 5 cm. We discussed these results in the likelihood that this is not contributing to her pain that eventually had body we reabsorb this fluid. Patient does show with myofascial pain at baseline. Sees Dr. Meneses for management of this. Suspicious that this may be a factor in her lingering pain. Recommended she reach out to Dr. Meneses. On exam the incision site is well healed, the area is not concerning for infection at this time, I was any to appreciate this fluid collection. There was no induration, edema noticed. At this point patient has no indication to continue with follow up. Can follow up on an as-needed basis in the future if any concerns arise. Coding Level of Care Code Est Pt Level 4 (61773) Diagnoses Abdominal wall mass of right lower quadrant R19.03
[2025-11-08 11:10] VITALS: BP 167/79; PULSE 77; RESP 14; TEMP 36.6; O2SAT 98; BMI 48.8
== END 2025-11-08 11:59 | disposition home or self-care (01) ==
LOC: HO.HGS 11:08
PROVIDERS: PCP Internal Medicine
DX: R19.03 Right lower quadrant abdominal swelling, mass and lump (principal)
CPT/HCPCS: 99024

== ENCOUNTER → 2025-11-08 11:07 | Outpatient (BNVA) | payer OTHER, SELFPAY | PROVIDERS: PCP Internal Medicine | DX: R19.03 Right lower quadrant abdominal swelling, mass and lump (principal) | CPT/HCPCS: 99212 ==